=== PATIENT | male | born 1965 ===

== ENCOUNTER 2017-12-15 00:54 | Inpatient (IN) | payer OTHER ==
[2017-12-15] MEDS ORDERED: Midazolam 2 MG/2 ML VIAL IV STA (01:03)
[2017-12-15] MEDS ORDERED: Sodium Chloride 0.9% 1,000 ML IV SCH ×2 (01:15→02:30)
--- NOTE | 2017-12-15 01:15 | ED PDOC ---
HPI: Altered Mental Status Time Seen by Provider: 12/15/17 00:59 Chief Complaint (Nursing): Altered Mental Status Chief Complaint (Provider): Altered Mental Status History Per: EMS, Family () Current Symptoms Are (Timing): Still Present Description Of Symptoms: Unresponsive Additional Complaint(s): Preston Terrazas is a 52 year old male who was last known well at 1 PM today. Patient's neighbors reports that they heard him snoring at 4 PM today, and when his came home, which was just prior to patient's arrival in ED, she found him on the ground with vomitus all over himself. On transit, patient was actively vomiting, not protecting airway. Patient was intubated with no sedation by EMS, fingerstick within normal limits. No additional history available. Past Medical History Reviewed: Historical Data, Nursing Documentation, Vital Signs Vital Signs: Last Vital Signs Temp Pulse 96 H 12/15/17 00:59 Resp 13 12/15/17 00:59 BP 143/87 12/15/17 00:59 Pulse Ox 98 12/15/17 00:59 - Family History Family History: States: Unknown Family Hx - Home Medications Home Medications: Ambulatory Orders Medication Instructions Recorded Cyclobenzaprine HCl [Flexeril] 10 mg PO TID #10 tab 05/03/15 Naproxen [Naprosyn] 500 mg PO Q12H #20 tab 05/03/15 - Allergies Allergies/Adverse Reactions: Allergies Allergy/AdvReac Type Severity Reaction Status Date / Time No Known Allergies Allergy Verified 05/03/15 09:07 Review of Systems Review Of Systems: ROS cannot be obtained secondary to pt's inabilty to answer questions. Physical Exam - Reviewed Nursing Documentation Reviewed: Yes Vital Signs Reviewed: Yes - Physical Exam Appears: Negative for: No Acute Distress (Patient unresponsive) Head Exam: Positive for: ATRAUMATIC Skin: Positive for: Normal Color, Warm Eye Exam: Negative for: Normal appearance, EOMI, PERRL (Midpoint nonreactive pupils) ENT: Positive for: Other (ET tube in oral pharynx, (+) gag) Cardiovascular/Chest: Positive for: Regular Rate, Rhythm. Negative for: Murmur Respiratory: Positive for: Normal Breath Sounds (Equal breath sounds with bagging, coarse). Negative for: Respiratory Distress Gastrointestinal/Abdominal: Positive for: Normal Exam, Soft. Negative for: Tenderness Extremity: Negative for: Normal ROM (No spontaneous movement of extremities) Neurologic/Psych: Negative for: Alert, Oriented - Laboratory Results Result Diagrams: 12/15/17 01:11 12/15/17 01:11 - ECG O2 Sat by Pulse Oximetry: 98 (RA) Pulse Ox Interpretation: Normal - Critical Care Total Time (In Min): 30 Medical Decision Making Medical Decision Making: Impression: Unresponsive. Hypothermic and altered. GCS:3 Plan: Patient's chart reviewed for additional history. * CT C-Spine w/o contrast * CT Head w/o contrast * Chest X-Ray * EKG * Alcohol Serum * Acetaminophen * Lactic Acid * Lipase * Salicylate * Troponin I * CMP * CBC * PTT * PT * Type and Screen * ABG * VBG * Urinary Catheter * Urinalysis * Urine Drug Screen * Urine Culture * Blood Culture * NaCl 1000 mLs at 1000 mLs/hr * Midazolam 5 mg IV * Reevaluation Scribe Attestation: Documented by Мария Nolasco, acting as a scribe for Yoko Johns MD. Provider Scribe Attestation: All medical record entries made by the Scribe were at my direction and personally dictated by me. I have reviewed the chart and agree that the record accurately reflects my personal performance of the history, physical exam, medical decision making, and the department course for this patient. I have also personally directed, reviewed, and agree with the discharge instructions and disposition. 1:31AM Abg shows p02:58. PH:7.42. Fi02:100%, PEEP increased to maintain sat>88%. Lactate 7.8. Blood cultures and urine cultures already drawn. Antibiotics and fluid at 30cc/ kg bolus ordered although lactate likely elevated from prolonged downtime but sepsis considered due to likely aspiration pna. K 2.7. Replacement ordered. Cxray shows R mainstem intubation. ETT withdrawn 2 cm with repeat cxray showing improvement. CT Head w/o contrast FINDINGS: Large right subdural hematoma measuring up to 3.1 cm with extensive mass effect upon the right hemisphere and 2.8 cm shift to the left. There is mild hydrocephalus. Cisternal effacement noted Subarachnoid and intraventricular hemorrhages. 2x 1.8 cm corpus callosal hemorrhage Extensive edema in the right anterior cerebral artery territory and lateral right temporal lobe There is no calvarial fracture. Air fluid level in the left sphenoid sinus. Mild mucosal thickening observed. IMPRESSION: Large right subdural hematoma with 2.2 cm shift to the left and mild hydrocephalus Corpus callosal hemorrhage with interventricular extension. Edema in the right anterior cerebral artery territory and lateral right temporal lobe THIS REPORT CONTAINS FINDINGS THAT MAY BE CRITICAL TO PATIENT CARE. The findings were verbally communicated via telephone conference with Yoko Johns at 1: 58 AM EST on 12/15/2017. The findings were acknowledged and understood. CT C-Spine w/o contrast FINDINGS: Limited secondary to motion artifact. Vertebrae: No definite acute fracture. Discs/spinal canal/neural foramina: No acute findings. Central canal and foraminal stenosis most pronounced at C6-C7 Soft tissues: Nasopharyngeal airway and endotracheal tube noted Lung apices: Unremarkable as visualized. IMPRESSION: No definite acute cervical fracture detected Presumed left-sided hemothorax and upper lobe pulmonary contusions THIS REPORT CONTAINS FINDINGS THAT MAY BE CRITICAL TO PATIENT CARE. The findings were verbally communicated via telephone conference with Yoko Johns at 1: 59 AM EST on 12/15/2017. The findings were acknowledged and understood. 2:[address] Franklin, Hospitalist, who accepted patient to ICU. Spoke to NSx who believes with platelets of 60 and elevated inr, no surgical intervention indicated. Spoke to Neurology- Requesting Decadron, ffp and vitamin k Disposition - Clinical Impression Clinical Impression: Altered mental status, Intracranial hemorrhage, Hypokalemia - Disposition Disposition Time: 00:59 Condition: CRITICAL - Pt Status Changed To: Hospital Disposition Of: Inpatient - Admit Certification Admit to Inpatient:: After my assessment, the patient will require hospitalization for at least two midnights. This is because of the severity of symptoms shown, intensity of services needed, and/or the medical risk in this patient being treated as an outpatient. Critical Care Time - Critical Care Note Total Time (in mins): 30 Documented critical care: time excludes all time spent performing seperately billable procedures.
[2017-12-15 01:30] LABS: BASO % 0.1 % (0.0-2.0); HEMOGLOBIN 15.1 g/dL (12.0-18.0); LYMPH # 0.7 K/uL (1.0-4.3); LYMPH % 4.8 % (20.0-40.0); MEAN CELL VOLUME 100.7 fl (80.0-94.0); MEAN CORPUSCULAR HEMOGLOBIN 33.5 pg (27.0-31.0); MEAN CORPUSCULAR HGB CONC 33.2 g/dL (33.0-37.0); MEAN PLATELET VOLUME 9.6 fl (7.2-11.7); MONO # 0.9 K/uL (0.0-0.8); MONO % 6.3 % (0.0-10.0); NEUT # 12.2 K/uL (1.8-7.0); NEUT % 88.8 % (50.0-75.0); PLATELET COUNT 61 K/uL (130-400); RBC 4.52 Mil/uL (4.40-5.90); WHITE BLOOD COUNT 13.8 K/uL (4.8-10.8)
[2017-12-15] MEDS ORDERED: Sodium Chloride 0.9% 2,500 ML IV ONE (01:33)
[2017-12-15 01:38] LABS: SQUAMOUS EPITHIAL < 1 /hpf (0-5); URINE BILIRUBIN NEGATIVE (NEGATIVE); URINE BLOOD MODERATE (NEGATIVE); URINE CLARITY SLIGHTY-CLOUDY (Clear); URINE COLOR YELLOW (YELLOW); URINE GLUCOSE (UA) NEG (Normal); URINE HYALINE CAST 0-2 /hpf (0-2); URINE LEUKOCYTE ESTERASE NEG Leu/uL (Negative); URINE NITRATE NEGATIVE (NEGATIVE); URINE PROTEIN 30 mg/dL (NEGATIVE); URINE UROBILINOGEN 0.2-1.0 mg/dL (0.2-1.0)
[2017-12-15 01:39] LABS: ALB/GLOB RATIO 0.8 (1.0-2.1); ALBUMIN 4.4 g/dL (3.5-5.0); ALT/SGPT 55 U/L (21-72); AST/SGOT 170 U/L (17-59); BLOOD UREA NITROGEN 6 mg/dl (9-20); CALCIUM 9.6 mg/dL (8.4-10.2); GFR AFRICAN-AMERICAN > 60; GFR NON-AFRICAN AMERICAN > 60; INR 1.4 (0.9-1.2); LIPASE 141 U/L (23-300); PARTIAL THROMBOPLASTIN TIME 31.7 Seconds (25.6-37.1)
[2017-12-15 01:40] LABS: ACETAMINOPHEN < 10.0 ug/ml (10.0-30.0); SALICYLATE < 1.0 mg/dl
[2017-12-15] MEDS ORDERED: Midazolam 2 MG/2 ML VIAL ONE (01:40)
[2017-12-15] MEDS ORDERED: Piperacillin/Tazobact 3.375 GM in Sodium Chloride 0.9% 100 ML IVPB STA (01:44)
[2017-12-15 01:48] LABS: BARBITURATES, UR NEGATIVE (NEGATIVE); BENZODIAZEPINES, UR NEGATIVE (NEGATIVE); OPIATES, UR NEGATIVE (NEGATIVE); PHENCYCLIDINE, UR NEGATIVE (NEGATIVE)
--- NOTE | 2017-12-15 02:02 | ED PDOC ---
Arrival/HPI - General Chief Complaint: Altered Mental Status Time Seen by Provider: 12/15/17 00:59 Past Medical History - Psychiatric Hx Substance Use: No - Surgical History Other/Comment: Right foot surgery - Anesthesia Hx Anesthesia: Yes Hx Anesthesia Reactions: No Hx Malignant Hyperthermia: No Family/Social History Smoking Status: Unknown If Ever Smoked Hx Alcohol Use: Yes Hx Substance Use: No Allergies/Home Meds Allergies/Adverse Reactions: Allergies No Known Allergies Allergy (Verified 05/03/15 09:07) Physical Exam Vital Signs Pulse Resp BP Pulse Ox 12/15/17 01:36 98 12/15/17 00:59 96 H 13 143/87 98 Medical Decision Making - Lab Interpretations Lab Results: 12/15/17 01:11 12/15/17 01:11 Lab Results 12/15/17 01:18: Urine Color Yellow, Urine Clarity Slighty-cloudy, Urine pH 6.0, Ur Specific [place] 1.006, Urine Protein 30, Urine Glucose (UA) Neg, Urine Ketones Trace, Urine Blood Moderate, Urine Nitrate Negative, Urine Bilirubin Negative, Urine Urobilinogen 0.2-1.0, Ur Leukocyte Esterase Neg, Urine RBC (Auto ) 2, Urine Microscopic WBC 2, Ur Squamous Epith Cells < 1, Hyaline Casts 0-2 12/15/17 01:18: Urine Opiates Screen Negative, Urine Methadone Screen Negative, Ur Barbiturates Screen Negative, Ur Phencyclidine Scrn Negative, Ur Amphetamines Screen Negative, U Benzodiazepines Scrn Negative, U Oth Cocaine Metabols Negative, U Cannabinoids Screen Negative 12/15/17 01:11: Salicylates < 1.0, Acetaminophen < 10.0 L 12/15/17 01:11: PT 16.0 H, INR 1.4 H, APTT 31.7 12/15/17 01:11: Lactic Acid 7.8 H* 12/15/17 01:11: WBC 13.8 H, RBC 4.52, Hgb 15.1, Hct 45.5, MCV 100.7 H D, MCH 33.5 H, MCHC 33.2, RDW 15.0 H, Plt Count 61 L D, MPV 9.6, Neut % (Auto) 88.8 H, Lymph % (Auto) 4.8 L, [place] % (Auto) 6.3, Eos % (Auto) 0.0, Baso % (Auto) 0.1, Neut # (Auto) 12.2 H, Lymph # (Auto) 0.7 L, [place] # (Auto) 0.9 H, Eos # (Auto) 0.0, Baso # (Auto) 0.0, Neutrophils % (Manual) Pending, Lymphocytes % (Manual) Pending, Monocytes % (Manual) Pending, Platelet Estimate Pending 12/15/17 01:11: Sodium 149 H, Potassium 2.6 L, Chloride 106, Carbon Dioxide 22, Anion Gap 24 H, BUN 6 L, Creatinine 0.7 L, Est GFR ( Amer) > 60, Est GFR (Non-Af Amer) > 60, Random Glucose 229 H, Calcium 9.6, Total Bilirubin 2.6 H, AST 170 H, ALT 55, Alkaline Phosphatase 142 H, Troponin I Pending, Total Protein 9.8 H, Albumin 4.4, Globulin 5.4 H, Albumin/Globulin Ratio 0.8 L, Lipase 141, Alcohol, Quantitative < 10 - RAD Interpretation Radiology Orders: 12/15/17 01:00 CERVICAL SPINE W/O CONTRAST [CT] Stat HEAD W/O CONTRAST [CT] Stat CHEST ONE VIEW [RAD] Stat - Medication Orders Current Medication Orders: Sodium Chloride (Sodium Chloride 0.9%) 1,000 mls @ 1,000 mls/hr IV .Q1H PANFILO Potassium Chloride (Potassium Cl 10meq/50ml Sterile Water) 50 mls @ 50 mls/hr IVPB Q1 PANFILO Stop: 12/15/17 04:59 Sodium Chloride (Sodium Chloride 0.9%) 2,500 mls @ 5,000 mls/hr IV ONCE ONE Stop: 12/15/17 02:02 Vancomycin HCl 1 gm/ Sodium (Chloride) 250 mls @ 166.667 mls/hr IVPB STAT STA PRN Reason: Protocol Stop: 12/15/17 03:14 Piperacillin Sod/Tazobactam (Sod 3.375 gm/ Sodium Chloride) 100 mls @ 100 mls/ hr IVPB STAT STA PRN Reason: Protocol Stop: 12/15/17 02:43 Discontinued Medications Midazolam HCl (Versed Inj) 5 mg IV STAT STA Stop: 12/15/17 01:04 Disposition/Present on Arrival - Disposition Forms: [employer] ([place])
[2017-12-15] MEDS ORDERED: Potassium CL 10 MEQ/50 ML 50 ML ONE ×2 (02:37→04:03)
[2017-12-15] MEDS: Potassium CL 10 MEQ/50 ML 50 ML IVPB SCH ×3 (02:38→05:51)
[2017-12-15] MEDS ORDERED: Phytonadione 10 mg/ml Inj (Adult) IV STA (02:42)
[2017-12-15] MEDS ORDERED: Dexamethasone 4 MG in Dextrose 5% In Water 50 ML IV STA (02:42)
[2017-12-15] MEDS ORDERED: Nicardipine 20 MG/200 ML 20 MG/200 ML BAG IV ONE (03:00)
[2017-12-15 03:01] LABS: BANDS 7 % (0-2); EOSINOPHIL 1 % (0-7); LYMPHOCYTE 4 % (20-50); METAMYELOCYTE 1 % (0-0); MONOCYTE 6 % (0-10); NEUTROPHIL 81 % (42-75); TOTAL CELLS COUNTED 100
[2017-12-15] MEDS ORDERED: Phytonadione 10 mg/ml Inj (Adult) ONE (03:01)
[2017-12-15 03:02] LABS: PLATELET ESTIMATE DECREASED (NORMAL)
[2017-12-15 03:05] LABS: ANISOCYTOSIS SLIGHT; ROULEAUX FORMATION SLIGHT
--- NOTE | 2017-12-15 03:09 | CP.PCM.CON ---
History of Present Illness - History of Present Illness History of Present Illness: This is a 52 yo male with a past medical history of back pain who presents to the ED after being found unresponsive. History taken from the chart. The patient was last seen well at 1 pm on 12/14/2017. Neighbors report hearing loud snoring at 4 pm. His found him on the ground unresponsive with vomitus all over himself just before arrival in the ED. EMS was called- reports that the patient was actively vomiting nb/nb emesis during transit, not protecting airway. Therefore patient was intubated without sedation. In the ED, CT scan of the brain and cervical spine was performed revealing a large right subdural hematoma with 2.2 cm shift to the left and mild hydrocephalus. Corpus callosal hemorrhage with interventricular extension. There is edema in the right anterior cerebral artery territory and lateral right temporal lobe. CT scan of cervical spine shows no acute vertebral fracture. The report mentions possible left sided hemothorax and upper lobe pulmonary contusion; however there is no definite evidence of this on CXR. CXR does show evidence of pneumonia; likely aspiration of his vomitus. The prognosis is very poor. The ED physician contacted the daughter; abigail is aware of poor prognosis. The patient is to be admitted to ICU for further stabilization and monitoring. Neurosurgery was called and stated nothing to be done from their standpoint- given the unfortunate severity of the bleed. Review of Systems - Review of Systems Systems not reviewed;Unavailable: Intubated Past Patient History - Past Medical History & Family History Past Medical History?: No Past Family History: Reviewed and not pertinent - Past Social History Smoking Status: Unknown If Ever Smoked - PSYCHIATRIC Hx Substance Use: No - SURGICAL HISTORY Other/Comment: Right foot surgery - ANESTHESIA Hx Anesthesia: Yes Hx Anesthesia Reactions: No Hx Malignant Hyperthermia: No Meds Allergies/Adverse Reactions: Allergies Allergy/AdvReac Type Severity Reaction Status Date / Time No Known Allergies Allergy Verified 05/03/15 09:07 - Medications Medications: Current Medications Sodium Chloride (Sodium Chloride 0.9%) 1,000 mls @ 1,000 mls/hr IV .Q1H PANFILO Last Admin: 12/15/17 02:25 Dose: 1,000 mls/hr Potassium Chloride (Potassium Cl 10meq/50ml Sterile Water) 50 mls @ 50 mls/hr IVPB Q1 [facility] Stop: 12/15/17 04:59 Last Admin: 12/15/17 02:38 Dose: 50 mls/hr Vancomycin HCl 1 gm/ Sodium (Chloride) 250 mls @ 166.667 mls/hr IVPB STAT STA PRN Reason: Protocol Stop: 12/15/17 03:14 Sodium Chloride (Sodium Chloride 0.9%) 1,000 mls @ 75 mls/hr IV .[id number] PANFILO Vancomycin HCl 1 gm/ Sodium (Chloride) 250 mls @ 250 mls/hr IVPB Q12H PANFILO PRN Reason: Protocol Piperacillin Sod/Tazobactam (Sod 3.375 gm/ Sodium Chloride) 100 mls @ 100 mls/ hr IVPB Q6 PANFILO PRN Reason: Protocol Dexamethasone 4 mg/ Dextrose 50.4 mls @ 100 mls/hr IV STAT STA Stop: 12/15/17 03:12 Nicardipine HCl (Cardene Iv Premix) 20 mg in 200 mls @ 50 mls/hr IV .Q4H ONE; 5 MG/HR PRN Reason: Protocol Stop: 12/15/17 06:59 Morphine Sulfate (Morphine) 2 mg IVP Q4H PRN PRN Reason: Pain, severe (8-10) Ondansetron HCl (Zofran Inj) 4 mg IVP Q6H PRN PRN Reason: Nausea/Vomiting Pantoprazole Sodium (Protonix Inj) 40 mg IVP DAILY [facility] Physical Exam - Additional Findings Additional findings: Physical exam: Constitutional- unresponsive on ventilator without sedation, no response to verbal or tactile stimuli Head- NCAT, PERRL Eye- PERRL ENT- normal exam, intubated Neck- normal inspection, supple, no JVD Respiratory- Scattered rhonchi bilaterally, no wheezing, no rales Cardiovascular- RRR, +S1, +S2 no MRG GI/Abdominal- normal bowel sounds, soft, no mass, no hsm Skin- warm, dry Extremities Exam- normal capillary refill, normal inspection Neurological Exam- unable to be performed Psych- unable to be performed Results - Vital Signs Recent Vital Signs: Last Vital Signs Temp Pulse 96 H 12/15/17 00:59 Resp 13 12/15/17 00:59 BP 143/87 12/15/17 00:59 Pulse Ox 98 12/15/17 02:44 - Labs Result Diagrams: 12/15/17 01:11 12/15/17 01:11 Labs: Laboratory Results - last 24 hr 12/15/17 12/15/17 12/15/17 01:11 01:11 01:11 WBC 13.8 H RBC 4.52 Hgb 15.1 Hct 45.5 MCV 100.7 H D MCH 33.5 H MCHC 33.2 RDW 15.0 H Plt Count 61 L D MPV 9.6 Neut % (Auto) 88.8 H Lymph % (Auto) 4.8 L [place] % (Auto) 6.3 Eos % (Auto) 0.0 Baso % (Auto) 0.1 Neut # (Auto) 12.2 H Lymph # (Auto) 0.7 L [place] # (Auto) 0.9 H Eos # (Auto) 0.0 Baso # (Auto) 0.0 PT INR APTT Sodium 149 H Potassium 2.6 L Chloride 106 Carbon Dioxide 22 Anion Gap 24 H BUN 6 L Creatinine 0.7 L Est GFR ( Amer) > 60 Est GFR (Non-Af Amer) > 60 Random Glucose 229 H Lactic Acid 7.8 H* Calcium 9.6 Total Bilirubin 2.6 H AST 170 H ALT 55 Alkaline Phosphatase 142 H Troponin I 0.2920 H* Total Protein 9.8 H Albumin 4.4 Globulin 5.4 H Albumin/Globulin Ratio 0.8 L Lipase 141 Urine Color Urine Clarity Urine pH Ur Specific [place] Urine Protein Urine Glucose (UA) Urine Ketones Urine Blood Urine Nitrate Urine Bilirubin Urine Urobilinogen Ur Leukocyte Esterase Urine RBC (Auto) Urine Microscopic WBC Ur Squamous Epith Cells Hyaline Casts Salicylates Urine Opiates Screen Urine Methadone Screen Acetaminophen Ur Barbiturates Screen Ur Phencyclidine Scrn Ur Amphetamines Screen U Benzodiazepines Scrn U Oth Cocaine Metabols U Cannabinoids Screen Alcohol, Quantitative < 10 Blood Type Antibody Screen BBK History Checked 12/15/17 12/15/17 12/15/17 01:11 01:11 01:11 WBC RBC Hgb Hct MCV MCH MCHC RDW Plt Count MPV Neut % (Auto) Lymph % (Auto) [place] % (Auto) Eos % (Auto) Baso % (Auto) Neut # (Auto) Lymph # (Auto) [place] # (Auto) Eos # (Auto) Baso # (Auto) PT 16.0 H INR 1.4 H APTT 31.7 Sodium Potassium Chloride Carbon Dioxide Anion Gap BUN Creatinine Est GFR ( Amer) Est GFR (Non-Af Amer) Random Glucose Lactic Acid Calcium Total Bilirubin AST ALT Alkaline Phosphatase Troponin I Total Protein Albumin Globulin Albumin/Globulin Ratio Lipase Urine Color Urine Clarity Urine pH Ur Specific [place] Urine Protein Urine Glucose (UA) Urine Ketones Urine Blood Urine Nitrate Urine Bilirubin Urine Urobilinogen Ur Leukocyte Esterase Urine RBC (Auto) Urine Microscopic WBC Ur Squamous Epith Cells Hyaline Casts Salicylates < 1.0 Urine Opiates Screen Urine Methadone Screen Acetaminophen < 10.0 L Ur Barbiturates Screen Ur Phencyclidine Scrn Ur Amphetamines Screen U Benzodiazepines Scrn U Oth Cocaine Metabols U Cannabinoids Screen Alcohol, Quantitative Blood Type O POSITIVE Antibody Screen Negative BBK History Checked No verified bt 12/15/17 12/15/17 01:18 01:18 WBC RBC Hgb Hct MCV MCH MCHC RDW Plt Count MPV Neut % (Auto) Lymph % (Auto) [place] % (Auto) Eos % (Auto) Baso % (Auto) Neut # (Auto) Lymph # (Auto) [place] # (Auto) Eos # (Auto) Baso # (Auto) PT INR APTT Sodium Potassium Chloride Carbon Dioxide Anion Gap BUN Creatinine Est GFR ( Amer) Est GFR (Non-Af Amer) Random Glucose Lactic Acid Calcium Total Bilirubin AST ALT Alkaline Phosphatase Troponin I Total Protein Albumin Globulin Albumin/Globulin Ratio Lipase Urine Color Yellow Urine Clarity Slighty-cloudy Urine pH 6.0 Ur Specific [place] 1.006 Urine Protein 30 Urine Glucose (UA) Neg Urine Ketones Trace Urine Blood Moderate Urine Nitrate Negative Urine Bilirubin Negative Urine Urobilinogen 0.2-1.0 Ur Leukocyte Esterase Neg Urine RBC (Auto) 2 Urine Microscopic WBC 2 Ur Squamous Epith Cells < 1 Hyaline Casts 0-2 Salicylates Urine Opiates Screen Negative Urine Methadone Screen Negative Acetaminophen Ur Barbiturates Screen Negative Ur Phencyclidine Scrn Negative Ur Amphetamines Screen Negative U Benzodiazepines Scrn Negative U Oth Cocaine Metabols Negative U Cannabinoids Screen Negative Alcohol, Quantitative Blood Type Antibody Screen BBK History Checked Assessment & Plan - Assessment and Plan (Free Text) Plan: ASSESSMENT 1) Large right subdural hematoma with 2.2 cm shift to the left, along with large corpus callosal hemorrhage with interventricular extension. Cause unclear ; may be due to head trauma from fall versus large aneurysmal bleed 2) Aspiration pneumonia / pneumonitis 3) r/o sepsis with lactic acidosis and hypothermia- although this may be due to prolonged time being down rather than true sepsis 4) Hypernatremia from dehydration 5) Hypokalemia 6) Hyperglycemia, r/o DM 7) Elevated troponin due to stress demand ischemia from bleed and aspiration; unlikely ACS 8) Leukocytosis, reactive 9) Elevated bilirubin and transaminitis- from shock liver versus cirrhosis- ETOH use seen on past ED visits PLAN - Admit to ICU - Consultation with Dr. Rush, neurology, and Dr. Zaragoza, neurosurgery- no neurosurgical intervention at this time - Vancomycin and Zosyn for empiric coverage of aspiration pneumonia - Dexamethasone given in ED, continue IV steroids in ICU for pneumonitis - NS bolus given in ED, continue NS at 75 cc/hour - 2 units FFP and Vitamin K given (INR 1.4 on admission) - Cardene drip ordered PRN to maintain MAP 100-110 and SBP no more than 140 - NPO status - IV potassium repletion - GI prophylaxis: Protonix IV - DVT prophylaxis: SCDs - Prognosis is poor
[2017-12-15] MEDS ORDERED: Dexamethasone 4 mg/1 ml ONE (04:03)
[2017-12-15 05:34] LABS: ABG ALLEN TEST YES; ARTERIAL BLOOD GAS HCO3 29.4 mmol/L (21-28); ARTERIAL BLOOD GAS O2 CAPACITY 22.5 mL/dL (16-24); ARTERIAL BLOOD GAS O2 CONTENT 22.6 ML/dL (15-23); ARTERIAL BLOOD GAS O2 SAT 100.6 % (95-98); ARTERIAL BLOOD GAS PCO2 40 mm/Hg (35-45); ARTERIAL BLOOD GAS PH 7.48 (7.35-7.45); ARTERIAL BLOOD GAS PO2 292 mm/Hg (80-100)
--- NOTE | 2017-12-15 09:02 | CP.PCM.PN ---
Subjective - Date & Time of Evaluation Date of Evaluation: 12/15/17 Time of Evaluation: 08:59 - Subjective Subjective: full consult dictated approx 2AM last night not yet on chart Massive SDH Unconscious 61K plts and elevated INR could not do surgery 2 to low plts and elevated INR and unlikely ability to keep it normalized Prognosis grim No surgical intervention indicated at this time Objective - Vital Signs/Intake and Output Vital Signs (last 24 hours): Temp Pulse Resp BP Pulse Ox 97.9 F 66 18 145/75 100 12/15/17 08:00 12/15/17 08:00 12/15/17 08:00 12/15/17 08:00 12/15/17 08:00 - Medications Medications: Current Medications Sodium Chloride (Sodium Chloride 0.9%) 1,000 mls @ 1,000 mls/hr IV .Q1H [facility] Last Admin: 12/15/17 02:25 Dose: 1,000 mls/hr Sodium Chloride (Sodium Chloride 0.9%) 1,000 mls @ 75 mls/hr IV .[id number] [facility] Last Admin: 12/15/17 05:34 Dose: 75 mls/hr Vancomycin HCl 1 gm/ Sodium (Chloride) 250 mls @ 250 mls/hr IVPB Q12H PANFILO PRN Reason: Protocol Piperacillin Sod/Tazobactam (Sod 3.375 gm/ Sodium Chloride) 100 mls @ 100 mls/ hr IVPB Q6 PANFILO PRN Reason: Protocol Morphine Sulfate (Morphine) 2 mg IVP Q4H PRN PRN Reason: Pain, severe (8-10) Ondansetron HCl (Zofran Inj) 4 mg IVP Q6H PRN PRN Reason: Nausea/Vomiting Pantoprazole Sodium (Protonix Inj) 40 mg IVP DAILY PANFILO - Labs Labs: 12/15/17 01:11 12/15/17 01:11 PT 16.0 Seconds (9.8-13.1) H 12/15/17 01:11 INR 1.4 (0.9-1.2) H 12/15/17 01:11 APTT 31.7 Seconds (25.6-37.1) 12/15/17 01:11
--- NOTE | 2017-12-15 09:02 | CT ---
PROCEDURE: CT HEAD WITHOUT CONTRAST. HISTORY: head injury COMPARISON: None available. TECHNIQUE: Axial computed tomography images were obtained through the head/brain without intravenous contrast. Radiation dose: Total exam DLP = 1160 mGy-cm. This CT exam was performed using one or more of the following dose reduction techniques: Automated exposure control, adjustment of the mA and/or kV according to patient size, and/or use of iterative reconstruction technique. FINDINGS: HEMORRHAGE: A large right subdural hematoma - width approximately 3 cm, with a right cerebral hemispheric mass effect and approximately a 2.8 cm leftward midline shift Inferred sulcal and cisternal effacements. Subarachnoid and intraventricular hemorrhage. A left paracentral posterior corpus callosal hematoma approximately 2.0 x 1.8 cm. BRAIN: Right cerebral hemispheric mass effect -as above. Inferiorly right anterior frontal lobe/anterior cerebral artery territory and inferior lateral right temporal lobe extensive edema. VENTRICLES: Mild hydrocephalus CALVARIUM: No calvarial fracture seen PARANASAL SINUSES: Maxillary sinus mucosal thickening/ retention cyst. Bilateral patchy ethmoidal mucosal thickening and opacification and left sphenoid air cell air-fluid level. MASTOID AIR CELLS: Unremarkable as visualized. No inflammatory changes. OTHER FINDINGS: None. IMPRESSION: Large right subdural acute appearing hematoma with right cerebral hemispheric mass effect, or right cerebral edema, and marked leftward midline shift. Mild hydrocephalus. Subarachnoid and intraventricular blood. Posterior left corpus callosal hematoma Paranasal sinus inflammatory changes Comments: Preliminary report per Vrad compatible with this report.
[2017-12-15 09:34] LABS: HEMOGLOBIN 14.2 g/dL (12.0-18.0); LYMPH # 0.4 K/uL (1.0-4.3); LYMPH % 2.9 % (20.0-40.0); MEAN CELL VOLUME 99.9 fl (80.0-94.0); MEAN CORPUSCULAR HEMOGLOBIN 33.3 pg (27.0-31.0); MEAN CORPUSCULAR HGB CONC 33.3 g/dL (33.0-37.0); MEAN PLATELET VOLUME 9.8 fl (7.2-11.7); MONO # 0.9 K/uL (0.0-0.8); MONO % 6.3 % (0.0-10.0); NEUT % 90.8 % (50.0-75.0); NRBC % 0.1 % (0.0-0.0); RBC 4.27 Mil/uL (4.40-5.90); RED CELL DISTRIBUTION WIDTH 14.8 % (11.5-14.5); WHITE BLOOD COUNT 14.3 K/uL (4.8-10.8)
[2017-12-15] MEDS ORDERED: Phytonadione 1 mg/0.5 ml Inj (Neonatal) IM ONE (09:49)
--- NOTE | 2017-12-15 10:00 | RAD ---
PROCEDURE: CHEST RADIOGRAPH, 1 VIEW HISTORY: altered COMPARISON: None available. FINDINGS: LUNGS: Bilateral patchy airspace opacities present. Left hemidiaphragm -ill-defined. PLEURA: No pneumothorax. Small left pleural effusion probable CARDIOVASCULAR: Mild cardiomegaly OSSEOUS STRUCTURES: All shoulder arthrosis. Thoracic spondylosis. VISUALIZED UPPER ABDOMEN: Normal. OTHER FINDINGS: Endotracheal tube tip in right mainstem bronchus recommend retraction. A 2nd film after some retraction was performed. The tip still is at the bifurcation pointing towards the right mainstem orifice. Further retraction, 1 to 2 cm still recommended. IMPRESSION: Endotracheal tube tip in the right mainstem bronchus. A 2nd film after some retraction was performed. The tip still is at the bifurcation pointing towards the right mainstem orifice. Further retraction, 1 to 2 cm still recommended. These findings were called up to the floor on 12/15/2017 at 9:55 a.m. and given to nurse, Sudha Stearns.
[2017-12-15 10:11] LABS: ALB/GLOB RATIO 0.8 (1.0-2.1); ALBUMIN 3.2 g/dL (3.5-5.0); ALT/SGPT 64 U/L (21-72); AST/SGOT 145 U/L (17-59); BLOOD UREA NITROGEN 5 mg/dl (9-20); GFR AFRICAN-AMERICAN > 60; GFR NON-AFRICAN AMERICAN > 60; MAGNESIUM 2.1 MG/DL (1.6-2.3)
[2017-12-15] MEDS ORDERED: Phytonadione 10 mg/ml Inj (Adult) IVPB ONE (10:13)
[2017-12-15] MEDS ORDERED: Mannitol 12.5 gm/50 ml Inj IV ONE (10:14)
[2017-12-15] MEDS ORDERED: Phytonadione 10 MG in Sodium Chloride 0.9% 50 ML IV ONE (10:45)
[2017-12-15] MEDS ORDERED: Phytonadione 20 MG in Dextrose 5% In Water 50 ML IV ONE (11:00)
--- NOTE | 2017-12-15 11:17 | CARD ---
APPROVED REPORT EKG Measurement Heart [id number] <Conclusion> Sinus rhythm with marked sinus arrhythmia Minimal voltage criteria for LVH, may be normal variant Prolonged QT Abnormal ECG
--- NOTE | 2017-12-15 11:18 | CARD ---
APPROVED REPORT EKG Measurement Heart [id number] <Conclusion> Normal sinus rhythm Nonspecific ST and T wave abnormality Abnormal ECG
[2017-12-15] MEDS: Piperacillin/Tazobact 3.375 GM in Sodium Chloride 0.9% 100 ML IVPB SCH ×3 (11:23→21:43)
--- NOTE | 2017-12-15 11:23 | CT ---
PROCEDURE: CT Cervical Spine without contrast HISTORY: <altered, fall> COMPARISON: None available. TECHNIQUE: Axial computed tomography images were obtained of the cervical spine without the use of intravenous contrast. Coronal and sagittal reformatted images were created and reviewed. Radiation dose: Total exam DLP = 566.04 mGy-cm. This CT exam was performed using one or more of the following dose reduction techniques: Automated exposure control, adjustment of the mA and/or kV according to patient size, and/or use of iterative reconstruction technique. FINDINGS: VERTEBRAE: No fracture. Normal alignment. No destructive bony lesion. DISCS/SPINAL CANAL/NEURAL FORAMINA: There are multilevel disc and endplate changes. There is a moderate size posterior osteophyte disc bulge complex noted at C6-C7 associated with spinal and neural foraminal narrowing. Straightening of the cervical spine is also noted likely due to muscle spasm. PARASPINAL SOFT TISSUES: There is opacification and airspace density broken at the visualized portion of the left lung apex. Possible of hemothorax on the left chest. . ET tube and NG tube are seen in place. The assessment for prevertebral soft tissue swelling is limited due to the presence of ET tube and NG tube. OTHER FINDINGS: None. IMPRESSION: No definite CT evidence of acute displaced fracture or acute subluxation. Moderate degenerative changes. Presumed left-sided hemothorax and upper lobe pulmonary contusion or consolidation. Preliminary report was submitted by virtual Radiology.
[2017-12-15] MEDS ORDERED: Dexamethasone 10 MG in Sodium Chloride 0.9% 50 ML IVPB SCH (12:00)
[2017-12-15] MEDS ORDERED: Desmopressin 4 mcg/ml Inj (1 ml) IVP STA (12:29)
--- NOTE | 2017-12-15 12:51 | CON ---
DATE: 12/15/2017 TIME: 02:00 a.m. HISTORY OF PRESENT ILLNESS: Call from the ER physician. Mr. Terrazas is a 52-year-old gentleman, last seen yesterday at 01:00 p.m., neighbor saw him, heard him snoring approximately at 4:00 p.m. His came home and found him unresponsive in his own vomitus. He was intubated with no station. He arrived in the Emergency Room unresponsive. He had spontaneous respirations. His pupils were in mid position and fixed. He a had gag reflex. A CT of the head was done, demonstrating a massive right acute subdural hematoma with several centimeters of shift. His laboratory values showed an INR of 1.4 and platelets of 62,000. Based upon his clinical condition and his abnormal coagulation profile, operating to remove the subdural hematoma is out of the question. We would not be able to control his bleeding while doing surgery. On an average, it takes 4 hours to get platelets and it was 62,000. Given the history of alcohol use, it would be impossible to get him to a reasonable coagulation profile and to maintain it during any reasonable time period. Given his condition, his overall prognosis is extremely poor. I suggest conservative management and discussing do not resuscitate with the family. Again, because of his hematologic profile, surgery is out of question. Javi Zaragoza MD
--- NOTE | 2017-12-15 13:20 | CP.PCM.CON ---
History of Present Illness - History of Present Illness History of Present Illness: 52 yr old male who was found unresponsive, etiology unknown. It is thought it could have been secondary to trauma. History is obtained from the chart and is as follows: The patient was last seen well at 1 pm on 12/14/17, and his girlfriend found him last night on the ground, wtih vomitus. EMS reported that the patient w actively vomiting durign transit, and was intubated without sedation. I was called immediately after CT scan was done, and he was obtunded, with platelets of 61, INR of 1.6, and a CT scan head that shows large right subdural hematoma with 2.2cm shift to the left with hydrocephalus. There is corpus callosal hemorrhage with interventricular extension, and edema with RACA , and lateral right temporal lobe. CT scan does not show any vertebral fracture. The report mentions possible left sided hemothorax and upper lobe pulmonary contusion; however there is no definite evidence of this on CXR. CXR does show evidence of pneumonia; likely aspiration of his vomitus. I was called at 230 am, and was called as well. I ordered 2 units of FFPs, and Vitamin K to be given immediately as well as repeat CT head in the am. felt that, given the patient's thrombocytopenia and INR, he would not be a good candidate for craniectomy. Patient was transferred to the ICU, and his pupils became progressively larger, and less reactive. He was started on mannitol, hyperventilated, and repeat CT head was just performed. Prognosis is poor. Patient's girlfriend was called and clinical condition was explained. On exam: obtunded, intubated and not sedated. Pupils: 4mm very sluggishly reacting to light, /fixed. no corneals noted. +gag reflex strong, No dolls eyes noted. Grimacing to painful stimuli, +3 dtr ul and ll bl. Toes upgoing bl. No focal twitching noted. Past Patient History - Past Medical History & Family History Past Medical History?: No - Past Social History Smoking Status: Unknown If Ever Smoked - PSYCHIATRIC Hx Substance Use: No Other/Comment: history of alcohol abuse - SURGICAL HISTORY Other/Comment: Right foot surgery - ANESTHESIA Hx Anesthesia: Yes Hx Anesthesia Reactions: No Hx Malignant Hyperthermia: No Meds Allergies/Adverse Reactions: Allergies Allergy/AdvReac Type Severity Reaction Status Date / Time No Known Allergies Allergy Verified 05/03/15 09:07 - Medications Medications: Current Medications Sodium Chloride (Sodium Chloride 0.9%) 1,000 mls @ 1,000 mls/hr IV .Q1H [facility] Last Admin: 12/15/17 02:25 Dose: 1,000 mls/hr Sodium Chloride (Sodium Chloride 0.9%) 1,000 mls @ 75 mls/hr IV .[id number] [facility] Last Admin: 12/15/17 05:34 Dose: 75 mls/hr Vancomycin HCl 1 gm/ Sodium (Chloride) 250 mls @ 250 mls/hr IVPB Q12H [facility] PRN Reason: Protocol Piperacillin Sod/Tazobactam (Sod 3.375 gm/ Sodium Chloride) 100 mls @ 100 mls/ hr IVPB Q6 [facility] PRN Reason: Protocol Morphine Sulfate (Morphine) 2 mg IVP Q4H PRN PRN Reason: Pain, severe (8-10) Ondansetron HCl (Zofran Inj) 4 mg IVP Q6H PRN PRN Reason: Nausea/Vomiting Pantoprazole Sodium (Protonix Inj) 40 mg IVP DAILY [facility] Results - Vital Signs Recent Vital Signs: Last Vital Signs Temp 97.9 F 12/15/17 08:00 Pulse 66 12/15/17 08:00 Resp 18 12/15/17 08:00 BP 145/75 12/15/17 08:00 Pulse Ox 100 12/15/17 08:00 - Labs Result Diagrams: 12/15/17 09:20 12/15/17 09:20 Labs: Laboratory Results - last 24 hr 12/15/17 12/15/17 12/15/17 01:11 01:11 01:11 WBC 13.8 H RBC 4.52 Hgb 15.1 Hct 45.5 MCV 100.7 H D MCH 33.5 H MCHC 33.2 RDW 15.0 H Plt Count 61 L D MPV 9.6 Neut % (Auto) 88.8 H Lymph % (Auto) 4.8 L [place] % (Auto) 6.3 Eos % (Auto) 0.0 Baso % (Auto) 0.1 Neut # (Auto) 12.2 H Lymph # (Auto) 0.7 L [place] # (Auto) 0.9 H Eos # (Auto) 0.0 Baso # (Auto) 0.0 Neutrophils % (Manual) 81 H Band Neutrophils % 7 H Lymphocytes % (Manual) 4 L Monocytes % (Manual) 6 Eosinophils % (Manual) 1 Metamyelocytes % 1 H Platelet Estimate Decreased L Anisocytosis (manual) Slight Macrocytosis (manual) Slight Rouleaux Slight PT INR APTT pCO2 pO2 HCO3 ABG pH ABG Total CO2 ABG O2 Saturation ABG O2 Content ABG Base Excess ABG Hemoglobin ABG Carboxyhemoglobin POC ABG HHb (Measured) ABG Methemoglobin ABG O2 Capacity Meño Test A-a O2 Difference Hgb O2 Saturation Vent Mode Mechanical Rate FiO2 Tidal Volume PEEP Sodium 149 H Potassium 2.6 L Chloride 106 Carbon Dioxide 22 Anion Gap 24 H BUN 6 L Creatinine 0.7 L Est GFR ( Amer) > 60 Est GFR (Non-Af Amer) > 60 Random Glucose 229 H Lactic Acid 7.8 H* Calcium 9.6 Total Bilirubin 2.6 H AST 170 H ALT 55 Alkaline Phosphatase 142 H Troponin I 0.2920 H* Total Protein 9.8 H Albumin 4.4 Globulin 5.4 H Albumin/Globulin Ratio 0.8 L Lipase 141 Urine Color Urine Clarity Urine pH Ur Specific Bronte Urine Protein Urine Glucose (UA) Urine Ketones Urine Blood Urine Nitrate Urine Bilirubin Urine Urobilinogen Ur Leukocyte Esterase Urine RBC (Auto) Urine Microscopic WBC Ur Squamous Epith Cells Hyaline Casts Salicylates Urine Opiates Screen Urine Methadone Screen Acetaminophen Ur Barbiturates Screen Ur Phencyclidine Scrn Ur Amphetamines Screen U Benzodiazepines Scrn U Oth Cocaine Metabols U Cannabinoids Screen Alcohol, Quantitative < 10 Blood Type Blood Type Confirm Antibody Screen BBK History Checked 12/15/17 12/15/17 12/15/17 01:11 01:11 01:11 WBC RBC Hgb Hct MCV MCH MCHC RDW Plt Count MPV Neut % (Auto) Lymph % (Auto) [place] % (Auto) Eos % (Auto) Baso % (Auto) Neut # (Auto) Lymph # (Auto) [place] # (Auto) Eos # (Auto) Baso # (Auto) Neutrophils % (Manual) Band Neutrophils % Lymphocytes % (Manual) Monocytes % (Manual) Eosinophils % (Manual) Metamyelocytes % Platelet Estimate Anisocytosis (manual) Macrocytosis (manual) Rouleaux PT 16.0 H INR 1.4 H APTT 31.7 pCO2 pO2 HCO3 ABG pH ABG Total CO2 ABG O2 Saturation ABG O2 Content ABG Base Excess ABG Hemoglobin ABG Carboxyhemoglobin POC ABG HHb (Measured) ABG Methemoglobin ABG O2 Capacity Meño Test A-a O2 Difference Hgb O2 Saturation Vent Mode Mechanical Rate FiO2 Tidal Volume PEEP Sodium Potassium Chloride Carbon Dioxide Anion Gap BUN Creatinine Est GFR ( Amer) Est GFR (Non-Af Amer) Random Glucose Lactic Acid Calcium Total Bilirubin AST ALT Alkaline Phosphatase Troponin I Total Protein Albumin Globulin Albumin/Globulin Ratio Lipase Urine Color Urine Clarity Urine pH Ur Specific [place] Urine Protein Urine Glucose (UA) Urine Ketones Urine Blood Urine Nitrate Urine Bilirubin Urine Urobilinogen Ur Leukocyte Esterase Urine RBC (Auto) Urine Microscopic WBC Ur Squamous Epith Cells Hyaline Casts Salicylates < 1.0 Urine Opiates Screen Urine Methadone Screen Acetaminophen < 10.0 L Ur Barbiturates Screen Ur Phencyclidine Scrn Ur Amphetamines Screen U Benzodiazepines Scrn U Oth Cocaine Metabols U Cannabinoids Screen Alcohol, Quantitative Blood Type O POSITIVE Blood Type Confirm Antibody Screen Negative BBK History Checked No verified bt 12/15/17 12/15/17 12/15/17 01:18 01:18 02:42 WBC RBC Hgb Hct MCV MCH MCHC RDW Plt Count MPV Neut % (Auto) Lymph % (Auto) [place] % (Auto) Eos % (Auto) Baso % (Auto) Neut # (Auto) Lymph # (Auto) [place] # (Auto) Eos # (Auto) Baso # (Auto) Neutrophils % (Manual) Band Neutrophils % Lymphocytes % (Manual) Monocytes % (Manual) Eosinophils % (Manual) Metamyelocytes % Platelet Estimate Anisocytosis (manual) Macrocytosis (manual) Rouleaux PT INR APTT pCO2 pO2 HCO3 ABG pH ABG Total CO2 ABG O2 Saturation ABG O2 Content ABG Base Excess ABG Hemoglobin ABG Carboxyhemoglobin POC ABG HHb (Measured) ABG Methemoglobin ABG O2 Capacity Meño Test A-a O2 Difference Hgb O2 Saturation Vent Mode Mechanical Rate FiO2 Tidal Volume PEEP Sodium Potassium Chloride Carbon Dioxide Anion Gap BUN Creatinine Est GFR ( Amer) Est GFR (Non-Af Amer) Random Glucose Lactic Acid Calcium Total Bilirubin AST ALT Alkaline Phosphatase Troponin I Total Protein Albumin Globulin Albumin/Globulin Ratio Lipase Urine Color Yellow Urine Clarity Slighty-cloudy Urine pH 6.0 Ur Specific Bronte 1.006 Urine Protein 30 Urine Glucose (UA) Neg Urine Ketones Trace Urine Blood Moderate Urine Nitrate Negative Urine Bilirubin Negative Urine Urobilinogen 0.2-1.0 Ur Leukocyte Esterase Neg Urine RBC (Auto) 2 Urine Microscopic WBC 2 Ur Squamous Epith Cells < 1 Hyaline Casts 0-2 Salicylates Urine Opiates Screen Negative Urine Methadone Screen Negative Acetaminophen Ur Barbiturates Screen Negative Ur Phencyclidine Scrn Negative Ur Amphetamines Screen Negative U Benzodiazepines Scrn Negative U Oth Cocaine Metabols Negative U Cannabinoids Screen Negative Alcohol, Quantitative Blood Type Blood Type Confirm O POSITIVE Antibody Screen BBK History Checked 12/15/17 12/15/17 05:28 09:20 WBC 14.3 H RBC 4.27 L Hgb 14.2 Hct 42.7 MCV 99.9 H MCH 33.3 H MCHC 33.3 RDW 14.8 H Plt Count 51 L MPV 9.8 Neut % (Auto) 90.8 H Lymph % (Auto) 2.9 L [place] % (Auto) 6.3 Eos % (Auto) 0.0 Baso % (Auto) 0.0 Neut # (Auto) 13.0 H Lymph # (Auto) 0.4 L [place] # (Auto) 0.9 H Eos # (Auto) 0.0 Baso # (Auto) 0.0 Neutrophils % (Manual) Band Neutrophils % Lymphocytes % (Manual) Monocytes % (Manual) Eosinophils % (Manual) Metamyelocytes % Platelet Estimate Anisocytosis (manual) Macrocytosis (manual) Rouleaux PT INR APTT pCO2 40 pO2 292 H HCO3 29.4 H ABG pH 7.48 H ABG Total CO2 31.0 H ABG O2 Saturation 100.6 H ABG O2 Content 22.6 ABG Base Excess 5.8 H ABG Hemoglobin 16.0 ABG Carboxyhemoglobin 1.4 POC ABG HHb (Measured) -0.6 L ABG Methemoglobin 1.7 ABG O2 Capacity 22.5 Meño Test Yes A-a O2 Difference 371.0 Hgb O2 Saturation 97.4 Vent Mode A/c Mechanical Rate 12 FiO2 100.0 Tidal Volume 500 PEEP 5 Sodium Potassium Chloride Carbon Dioxide Anion Gap BUN Creatinine Est GFR ( Amer) Est GFR (Non-Af Amer) Random Glucose Lactic Acid Calcium Total Bilirubin AST ALT Alkaline Phosphatase Troponin I Total Protein Albumin Globulin Albumin/Globulin Ratio Lipase Urine Color Urine Clarity Urine pH Ur Specific [place] Urine Protein Urine Glucose (UA) Urine Ketones Urine Blood Urine Nitrate Urine Bilirubin Urine Urobilinogen Ur Leukocyte Esterase Urine RBC (Auto) Urine Microscopic WBC Ur Squamous Epith Cells Hyaline Casts Salicylates Urine Opiates Screen Urine Methadone Screen Acetaminophen Ur Barbiturates Screen Ur Phencyclidine Scrn Ur Amphetamines Screen U Benzodiazepines Scrn U Oth Cocaine Metabols U Cannabinoids Screen Alcohol, Quantitative Blood Type Blood Type Confirm Antibody Screen BBK History Checked Assessment & Plan - Assessment and Plan (Free Text) Assessment: 52 yr old male with unkown etiology of large right subdural hematoma, coagulopathy secondary to most likely chronic alcohol use, who is now in critical condition. CT head just performed: shows extending hemorrhage into the fourth ventricle, and 3rd ventricle closed. Masive progression of edema and midline shift. A/P: 52 yr old male with large subdural/Possible subarachnoid hemorrhage now with uncal and transtentorial herniation, poor prognosis. Plan: 1. Continue hyperventilation and mannitol. 2. No anticoagulation. 3. Family to be contacted about living will and dnr status. 4. Repeat CT head in am.
--- NOTE | 2017-12-15 13:29 | CT ---
PROCEDURE: CT HEAD WITHOUT CONTRAST. HISTORY: subdural hematoma COMPARISON: 12/15/2017 at 01:39 hours. TECHNIQUE: Axial computed tomography images were obtained through the head/brain without intravenous contrast. Radiation dose: Total exam DLP = 1289 mGy-cm. This CT exam was performed using one or more of the following dose reduction techniques: Automated exposure control, adjustment of the mA and/or kV according to patient size, and/or use of iterative reconstruction technique. FINDINGS: HEMORRHAGE: The size of the large acute appearing right subdural hematoma - is similar. The marked leftward midline shift approximately 2.8 cm is similar-appearing acute appearing is similar. Additional intraventricular blood noted in the ventricle section. Subarachnoid hemorrhagic blood renoted and increased. Primarily at skullbase Posterior corpus callosum hematoma similar-appearing BRAIN: The no mass effect on the right cerebral hemisphere is similar to increased with interval increased right cerebellar hemispheric diffuse edema inferred. Interval increasing left inferior, left temporal and left posterior parietal and occipital lobe and left cerebral hemispheric edema. Interval increased mid brain edema as well as interval increased blood products midbrain level suggested. Progressive edema and acute infarcts are inferred. VENTRICLES: [id number] the blood in the posterior left and right posterior ventricles is renoted. Interval increased blood apparent in the 3rd ventricle and in the 4th ventricle. Interval progressive effacement of the cisternal spaces - progressing herniation inferred. CALVARIUM: No fracture seen PARANASAL SINUSES: Ethmoidal and sphenoid sinus inflammatory changes right maxillary sinus retention cysts as before MASTOID AIR CELLS: Unremarkable as visualized. No inflammatory changes. OTHER FINDINGS: Paired nasal tubing removed. IMPRESSION: Progressing herniation leftward and downward. Progressing bilateral acute infarcts. Progressing intercerebral edema and mass effect. Large right acute subdural hematoma -similar with large leftward midline shift similar to probably slightly slightly increased . Progressive increased intraventricular blood. Similar to slightly increased hydrocephalus. Interval increased subarachnoid blood Comments: Findings discussed with the physician hospitalist in the ICU, Dr. Stephens.
[2017-12-15] MEDS: levETIRAcetam 500 MG in Sodium Chloride 0.9% 100 ML IVPB SCH ×2 (14:01→21:41)
[2017-12-15] MEDS ORDERED: Labetalol 5mg/ml (4ml) IVP STA (14:22)
[2017-12-15] MEDS ORDERED: Labetalol 5mg/ml (4ml) ONE (14:26)
[2017-12-15] MEDS ORDERED: Acetaminophen 160 mg/5 ml UD PO PRN (15:29)
--- NOTE | 2017-12-15 15:33 | CP.CCUPN ---
CCU Subjective - Physician Review Subjective (Free Text): EVENTS OVERNIGHT REVIEWED: and summarized- 52M admitted overnight after being found unresponsive on the ground, unclear s/ p Fall versus other head trauma, multiple episodes of vomiting noted, intubated in the field, emergent CT heads showed large R SDH with leftward shift and local edema almost involving the entire R hemisphere, left ventricular blood noted as well. Presently comatose in ICU, breathing 20 on AC 12, TV 500, 60% with PEEP 5, has produced approx. 5 L of urine output since 7AM ; and pupils are 3-4 mm size and very sluggish, midline, without gaze preference nor nystagmus, corneals are absent as well as gag reflex, but carinal reflexes are present on deep ETT suctioning, and he is triggering the vent at 25 on set rate of 22 now. He has recd 2 units FFP overnight, and bolus dose of Decadron. Mannitol ordered as well as attempts at hyperventilation. Repeat CT Brain ordered. NeuroSurg eval noted and reviewed. Discussed present clinical condition with Neurologist: will continue aggressive therapy. The [facility] network has been notified. Girlfrienholly states she tried calling patients cell at 2:30pm and patient never responded, and she arrived home at 9:30PM and found him somnolent and loudly snoring on the floor with vomitus and urine incontinency, then EMS was called. Patient last seen and heard in [place] at approx. 1:00PM. Other vitals and I/O's reviewed. ROS: No other pertinent negs or positives on 10+ system review. PMSFH: All other Nursing and physician documentation reviewed to date; no new pertinent info noted relevant to current medical problems. CXR: ETT in AUTUMN bronchus, (already re-positioned upward); RUL interstitial changes ( my interp.) IMPRESSION / MAJOR PROBLEMS NOW: 1. Catastrophic R SDH with SAH component, with R hemispheric edema and leftward shift, + Left ventricular blood and repeat CT Brain showing no new bleeding but loss of 3rd and 4th ventricle (my interp of repeat CT Brain imaging). 2. Centrally- mediated DI 3. Accelerated Hypertension 2 SDH / SAH 4. Coagulopathy and Thrombocytopenia 2 Alcoholism PLAN: 1. Neurochecks Q1-2h, HOB elevation, mannitol, steroids, AED as per neurology. Platelet supplementation and correction of coagulopathy with FFP and Vit K. Interim hyperventilation, watch for excessive alkalosis. 2. Stop NSS IVFs, DDAVP to slow polyuria. Tap Water via enteral feeding tube. Serial Lytes. 3. Follow serum Osmo levels. 4. Repeat Trops (watch for myocardial ischemic effects from neurogenic sympathetic output). 5. Empiric abx coverage for Aspiration pneumonia. 6. Follow serial Lactates, no hypoperfusional state, nor hypoxemia, doubt severe sepsis physiology, check serum CK levels. 7. Keep SBP no higher than 140-150, tachycardic also at 140 in sinus tachy: was on Cardene infusion, stopped earlier, now Labetalol ordered for BP control for now. 8. Discussed clinical condition with girlfriend at the bedside and she understands present moribund status and poor prognosis. Time spent with this patient did not overlap with any other provider's medical or critical care time. Additionally the code selected for the services rendered in this note includes the time spent: talking to the patients family, associated physicians and reviewing hospital data/results not listed here which extended to a total of 70 minutes. CCU Objective - Vital Signs / Intake & Output Vital Signs (Last 4 hours): Vital Signs Temp 12/15/17 12:00 99.7 F H Intake and Output (Last 8hrs): Intake & Output 12/15/17 12/15/17 12/15/17 06:59 14:59 22:59 Weight 165 lb - Physical Exam Physical Exam Limitations: Positive for: Altered Mental Status Head: Positive for: Atraumatic, Normocephalic Pupils: Positive for: Non-Reactive (4 mm midline, no Dolls eyes, no corneals) Extroacular Muscles: Positive for: Other (fixed in mid-position). Negative for : Gaze Palsy Conjunctiva: Positive for: Normal. Negative for: Icteric Mouth: Positive for: Moist Mucous Membranes Neck: Positive for: Normal Range of Motion. Negative for: Meningeal Signs, JVD Respiratory/Chest: Positive for: Clear to Auscultation. Negative for: Accessory Muscle Use, Wheezes Cardiovascular: Positive for: Regular Rate and Rhythm, Tachycardic. Negative for: Murmurs, Rub Abdomen: Positive for: Normal Bowel Sounds. Negative for: Tenderness, Distention, Mass/Organomegaly Lower Extremity: Positive for: Normal Inspection, NORMAL PULSES. Negative for: Edema, CALF TENDERNESS, Cyanosis Neurological: Negative for: GCS=15 (GCS= 3T) Skin: Positive for: Warm, Dry. Negative for: Rashes - Medications Active Medications: Active Medications Generic Name Dose Route Start Last Admin Trade Name Freq PRN Reason Stop Dose Admin Dexamethasone 10 mg 12/15/17 12:00 12/15/17 14:06 Decadron Inj IV 10 mg Q12@0000,1200 PANFILO Administration Vancomycin HCl 1 gm/ Sodium 250 mls @ 250 mls/hr 12/15/17 14:45 Chloride IVPB Q12H PANFILO Protocol Piperacillin Sod/Tazobactam 100 mls @ 100 mls/hr 12/15/17 09:00 12/15/17 11: 23 Sod 3.375 gm/ Sodium Chloride IVPB 100 mls/hr Q6 PANFILO Administration Protocol Levetiracetam 500 mg/ Sodium 105 mls @ 210 mls/hr 12/15/17 12:00 12/15/17 14: 01 Chloride IVPB 210 mls/hr Q12 PANFILO Administration Labetalol HCl 20 mg 12/15/17 16:22 Trandate IVP Q3 PRN Systolic Blood Pressure Mannitol 25 gm 12/15/17 17:00 Mannitol IV Q8 PANFILO Morphine Sulfate 2 mg 12/15/17 02:30 Morphine IVP Q4H PRN Pain, severe (8-10) Ondansetron HCl 4 mg 12/15/17 02:30 Zofran Inj IVP Q6H PRN Nausea/Vomiting Pantoprazole Sodium 40 mg 12/15/17 09:00 12/15/17 11:19 Protonix Inj IVP 40 mg DAILY APNFILO Administration - Patient Studies Lab Studies: Lab Studies 12/15/17 12/15/17 12/15/17 Range/Units 09:20 09:20 09:20 WBC 14.3 H (4.8-10.8) K/uL RBC 4.27 L (4.40-5.90) Mil/uL Hgb 14.2 (12.0-18.0) g/dL Hct 42.7 (35.0-51.0) % MCV 99.9 H (80.0-94.0) fl MCH 33.3 H (27.0-31.0) pg MCHC 33.3 (33.0-37.0) g/dL RDW 14.8 H (11.5-14.5) % Plt Count 51 L (130-400) K/uL MPV 9.8 (7.2-11.7) fl Neut % (Auto) 90.8 H (50.0-75.0) % Lymph % (Auto) 2.9 L (20.0-40.0) % [place] % (Auto) 6.3 (0.0-10.0) % Eos % (Auto) 0.0 (0.0-4.0) % Baso % (Auto) 0.0 (0.0-2.0) % Neut # (Auto) 13.0 H (1.8-7.0) K/uL Lymph # (Auto) 0.4 L (1.0-4.3) K/uL [place] # (Auto) 0.9 H (0.0-0.8) K/uL Eos # (Auto) 0.0 (0.0-0.7) K/uL Baso # (Auto) 0.0 (0.0-0.2) K/uL Total Counted Cancelled Neutrophils % (Manual) Cancelled (42-75) % Band Neutrophils % Cancelled (0-2) % Lymphocytes % (Manual) Cancelled (20-50) % Reactive Lymphs % Cancelled Monocytes % (Manual) Cancelled (0-10) % Eosinophils % (Manual) Cancelled (0-7) % Basophils % (Manual) Cancelled Metamyelocytes % Cancelled (0-0) % Myelocytes % Cancelled Promyelocytes % Cancelled Blast Cells % Cancelled Plasma Cell % (Manual) Cancelled Nucleated RBC % Cancelled Hypersegmented Polys Cancelled Smudge Cells Cancelled Toxic Granulation Cancelled Dohle Bodies Cancelled Armida Rods Cancelled Platelet Estimate Cancelled (NORMAL) Plt Clumps, EDTA Cancelled Large Platelets Cancelled Giant Platelets Cancelled RBC Morphology Cancelled Polychromasia Cancelled Hypochromasia (manual) Cancelled Poikilocytosis (manual Cancelled Basophilic Stippling Cancelled Anisocytosis (manual) Cancelled Microcytosis (manual) Cancelled Macrocytosis (manual) Cancelled Spherocytes Cancelled Sickle Cells Cancelled Target Cells Cancelled Tear Drop Cells Cancelled Ovalocytes Cancelled Stomatocytes Cancelled Helmet Cells Cancelled Potts-Mogollon Bodies Cancelled [place] Cells Cancelled Acanthocytes (Spur) Cancelled Rouleaux Cancelled Schistocytes Cancelled PT (9.8-13.1) Seconds INR (0.9-1.2) APTT (25.6-37.1) Seconds pCO2 (35-45) mm/Hg pO2 (80-100) mm/Hg HCO3 (21-28) mmol/L ABG pH (7.35-7.45) ABG Total CO2 (22-28) mmol/L ABG O2 Saturation (95-98) % ABG O2 Content (15-23) ML/dL ABG Base Excess (-2.0-3.0) mmol/L ABG Hemoglobin (11.7-17.4) g/dL ABG Carboxyhemoglobin (0.5-1.5) % POC ABG HHb (Measured) (0.0-5.0) % ABG Methemoglobin (0.0-3.0) % ABG O2 Capacity (16-24) mL/dL Meño Test A-a O2 Difference mm/Hg Hgb O2 Saturation (95.0-98.0) % Vent Mode Mechanical Rate FiO2 % Tidal Volume PEEP Sodium 162 H* (132-148) mmol/l Potassium 2.9 L (3.6-5.0) MMOL/L Chloride 126 H (98-107) mmol/L Carbon Dioxide 26 (22-30) mmol/L Anion Gap 13 (10-20) BUN 5 L (9-20) mg/dl Creatinine 0.5 L (0.8-1.5) mg/dl Est GFR ( Amer) > 60 Est GFR (Non-Af Amer) > 60 Random Glucose 162 H (75-110) mg/dL Lactic Acid 2.0 (0.7-2.1) MMOL/L Calcium 8.0 L (8.4-10.2) mg/dL Phosphorus 0.6 L* (2.5-4.5) mg/dl Magnesium 2.1 (1.6-2.3) MG/DL Total Bilirubin 2.4 H (0.2-1.3) mg/dl AST 145 H (17-59) U/L ALT 64 (21-72) U/L Alkaline Phosphatase 122 (38-126) U/L Total Creatine Kinase 1374 H (55-170) U/L Troponin I (0.00-0.120) ng/mL Total Protein 7.5 (6.3-8.2) G/DL Albumin 3.2 L D (3.5-5.0) g/dL Globulin 4.3 H (2.2-3.9) gm/dL Albumin/Globulin Ratio 0.8 L (1.0-2.1) Lipase (23-300) U/L Urine Color (YELLOW) Urine Clarity (Clear) Urine pH (5.0-8.0) Ur Specific [place] (1.003-1.030) Urine Protein (NEGATIVE) mg/dL Urine Glucose (UA) (Normal) mg/dL Urine Ketones (NEGATIVE) mg/dL Urine Blood (NEGATIVE) Urine Nitrate (NEGATIVE) Urine Bilirubin (NEGATIVE) Urine Urobilinogen (0.2-1.0) mg/dL Ur Leukocyte Esterase (Negative) Rudolph/uL Urine RBC (Auto) (0-3) /hpf Urine Microscopic WBC (0-5) /hpf Ur Squamous Epith Cells (0-5) /hpf Hyaline Casts (0-2) /hpf Salicylates mg/dl Urine Opiates Screen (NEGATIVE) Urine Methadone Screen (NEGATIVE) Acetaminophen (10.0-30.0) ug/ml Ur Barbiturates Screen (NEGATIVE) Ur Phencyclidine Scrn (NEGATIVE) Ur Amphetamines Screen (NEGATIVE) U Benzodiazepines Scrn (NEGATIVE) U Oth Cocaine Metabols (NEGATIVE) U Cannabinoids Screen (NEGATIVE) Alcohol, Quantitative (0-10) mg/dl Blood Type Blood Type Confirm Antibody Screen BBK History Checked 12/15/17 12/15/17 12/15/17 Range/Units 05:28 02:42 01:18 WBC (4.8-10.8) K/uL RBC (4.40-5.90) Mil/uL Hgb (12.0-18.0) g/dL Hct (35.0-51.0) % MCV (80.0-94.0) fl MCH (27.0-31.0) pg MCHC (33.0-37.0) g/dL RDW (11.5-14.5) % Plt Count (130-400) K/uL MPV (7.2-11.7) fl Neut % (Auto) (50.0-75.0) % Lymph % (Auto) (20.0-40.0) % [place] % (Auto) (0.0-10.0) % Eos % (Auto) (0.0-4.0) % Baso % (Auto) (0.0-2.0) % Neut # (Auto) (1.8-7.0) K/uL Lymph # (Auto) (1.0-4.3) K/uL [place] # (Auto) (0.0-0.8) K/uL Eos # (Auto) (0.0-0.7) K/uL Baso # (Auto) (0.0-0.2) K/uL Total Counted Neutrophils % (Manual) (42-75) % Band Neutrophils % (0-2) % Lymphocytes % (Manual) (20-50) % Reactive Lymphs % Monocytes % (Manual) (0-10) % Eosinophils % (Manual) (0-7) % Basophils % (Manual) Metamyelocytes % (0-0) % Myelocytes % Promyelocytes % Blast Cells % Plasma Cell % (Manual) Nucleated RBC % Hypersegmented Polys Smudge Cells Toxic Granulation Dohle Bodies Armida Rods Platelet Estimate (NORMAL) Plt Clumps, EDTA Large Platelets Giant Platelets RBC Morphology Polychromasia Hypochromasia (manual) Poikilocytosis (manual Basophilic Stippling Anisocytosis (manual) Microcytosis (manual) Macrocytosis (manual) Spherocytes Sickle Cells Target Cells Tear Drop Cells Ovalocytes Stomatocytes Helmet Cells Potts-Mogollon Bodies Joni Cells Acanthocytes (Spur) Rouleaux Schistocytes PT (9.8-13.1) Seconds INR (0.9-1.2) APTT (25.6-37.1) Seconds pCO2 40 (35-45) mm/Hg pO2 292 H (80-100) mm/Hg HCO3 29.4 H (21-28) mmol/L ABG pH 7.48 H (7.35-7.45) ABG Total CO2 31.0 H (22-28) mmol/L ABG O2 Saturation 100.6 H (95-98) % ABG O2 Content 22.6 (15-23) ML/dL ABG Base Excess 5.8 H (-2.0-3.0) mmol/L ABG Hemoglobin 16.0 (11.7-17.4) g/dL ABG Carboxyhemoglobin 1.4 (0.5-1.5) % POC ABG HHb (Measured) -0.6 L (0.0-5.0) % ABG Methemoglobin 1.7 (0.0-3.0) % ABG O2 Capacity 22.5 (16-24) mL/dL Meño Test Yes A-a O2 Difference 371.0 mm/Hg Hgb O2 Saturation 97.4 (95.0-98.0) % Vent Mode A/c Mechanical Rate 12 FiO2 100.0 % Tidal Volume 500 PEEP 5 Sodium (132-148) mmol/l Potassium (3.6-5.0) MMOL/L Chloride (98-107) mmol/L Carbon Dioxide (22-30) mmol/L Anion Gap (10-20) BUN (9-20) mg/dl Creatinine (0.8-1.5) mg/dl Est GFR ( Amer) Est GFR (Non-Af Amer) Random Glucose (75-110) mg/dL Lactic Acid (0.7-2.1) MMOL/L Calcium (8.4-10.2) mg/dL Phosphorus (2.5-4.5) mg/dl Magnesium (1.6-2.3) MG/DL Total Bilirubin (0.2-1.3) mg/dl AST (17-59) U/L ALT (21-72) U/L Alkaline Phosphatase (38-126) U/L Total Creatine Kinase (55-170) U/L Troponin I (0.00-0.120) ng/mL Total Protein (6.3-8.2) G/DL Albumin (3.5-5.0) g/dL Globulin (2.2-3.9) gm/dL Albumin/Globulin Ratio (1.0-2.1) Lipase (23-300) U/L Urine Color Yellow (YELLOW) Urine Clarity Slighty-cloudy (Clear) Urine pH 6.0 (5.0-8.0) Ur Specific [place] 1.006 (1.003-1.030) Urine Protein 30 (NEGATIVE) mg/dL Urine Glucose (UA) Neg (Normal) mg/dL Urine Ketones Trace (NEGATIVE) mg/dL Urine Blood Moderate (NEGATIVE) Urine Nitrate Negative (NEGATIVE) Urine Bilirubin Negative (NEGATIVE) Urine Urobilinogen 0.2-1.0 (0.2-1.0) mg/dL Ur Leukocyte Esterase Neg (Negative) Rudolph/uL Urine RBC (Auto) 2 (0-3) /hpf Urine Microscopic WBC 2 (0-5) /hpf Ur Squamous Epith Cells < 1 (0-5) /hpf Hyaline Casts 0-2 (0-2) /hpf Salicylates mg/dl Urine Opiates Screen (NEGATIVE) Urine Methadone Screen (NEGATIVE) Acetaminophen (10.0-30.0) ug/ml Ur Barbiturates Screen (NEGATIVE) Ur Phencyclidine Scrn (NEGATIVE) Ur Amphetamines Screen (NEGATIVE) U Benzodiazepines Scrn (NEGATIVE) U Oth Cocaine Metabols (NEGATIVE) U Cannabinoids Screen (NEGATIVE) Alcohol, Quantitative (0-10) mg/dl Blood Type Blood Type Confirm O POSITIVE Antibody Screen BBK History Checked 12/15/17 12/15/17 12/15/17 Range/Units 01:18 01:11 01:11 WBC (4.8-10.8) K/uL RBC (4.40-5.90) Mil/uL Hgb (12.0-18.0) g/dL Hct (35.0-51.0) % MCV (80.0-94.0) fl MCH (27.0-31.0) pg MCHC (33.0-37.0) g/dL RDW (11.5-14.5) % Plt Count (130-400) K/uL MPV (7.2-11.7) fl Neut % (Auto) (50.0-75.0) % Lymph % (Auto) (20.0-40.0) % [place] % (Auto) (0.0-10.0) % Eos % (Auto) (0.0-4.0) % Baso % (Auto) (0.0-2.0) % Neut # (Auto) (1.8-7.0) K/uL Lymph # (Auto) (1.0-4.3) K/uL [place] # (Auto) (0.0-0.8) K/uL Eos # (Auto) (0.0-0.7) K/uL Baso # (Auto) (0.0-0.2) K/uL Total Counted Neutrophils % (Manual) (42-75) % Band Neutrophils % (0-2) % Lymphocytes % (Manual) (20-50) % Reactive Lymphs % Monocytes % (Manual) (0-10) % Eosinophils % (Manual) (0-7) % Basophils % (Manual) Metamyelocytes % (0-0) % Myelocytes % Promyelocytes % Blast Cells % Plasma Cell % (Manual) Nucleated RBC % Hypersegmented Polys Smudge Cells Toxic Granulation Dohle Bodies Armida Rods Platelet Estimate (NORMAL) Plt Clumps, EDTA Large Platelets Giant Platelets RBC Morphology Polychromasia Hypochromasia (manual) Poikilocytosis (manual Basophilic Stippling Anisocytosis (manual) Microcytosis (manual) Macrocytosis (manual) Spherocytes Sickle Cells Target Cells Tear Drop Cells Ovalocytes Stomatocytes Helmet Cells Potts-Mogollon Bodies [place] Cells Acanthocytes (Spur) Rouleaux Schistocytes PT (9.8-13.1) Seconds INR (0.9-1.2) APTT (25.6-37.1) Seconds pCO2 (35-45) mm/Hg pO2 (80-100) mm/Hg HCO3 (21-28) mmol/L ABG pH (7.35-7.45) ABG Total CO2 (22-28) mmol/L ABG O2 Saturation (95-98) % ABG O2 Content (15-23) ML/dL ABG Base Excess (-2.0-3.0) mmol/L ABG Hemoglobin (11.7-17.4) g/dL ABG Carboxyhemoglobin (0.5-1.5) % POC ABG HHb (Measured) (0.0-5.0) % ABG Methemoglobin (0.0-3.0) % ABG O2 Capacity (16-24) mL/dL Meño Test A-a O2 Difference mm/Hg Hgb O2 Saturation (95.0-98.0) % Vent Mode Mechanical Rate FiO2 % Tidal Volume PEEP Sodium (132-148) mmol/l Potassium (3.6-5.0) MMOL/L Chloride (98-107) mmol/L Carbon Dioxide (22-30) mmol/L Anion Gap (10-20) BUN (9-20) mg/dl Creatinine (0.8-1.5) mg/dl Est GFR ( Amer) Est GFR (Non-Af Amer) Random Glucose (75-110) mg/dL Lactic Acid (0.7-2.1) MMOL/L Calcium (8.4-10.2) mg/dL Phosphorus (2.5-4.5) mg/dl Magnesium (1.6-2.3) MG/DL Total Bilirubin (0.2-1.3) mg/dl AST (17-59) U/L ALT (21-72) U/L Alkaline Phosphatase (38-126) U/L Total Creatine Kinase (55-170) U/L Troponin I (0.00-0.120) ng/mL Total Protein (6.3-8.2) G/DL Albumin (3.5-5.0) g/dL Globulin (2.2-3.9) gm/dL Albumin/Globulin Ratio (1.0-2.1) Lipase (23-300) U/L Urine Color (YELLOW) Urine Clarity (Clear) Urine pH (5.0-8.0) Ur Specific [place] (1.003-1.030) Urine Protein (NEGATIVE) mg/dL Urine Glucose (UA) (Normal) mg/dL Urine Ketones (NEGATIVE) mg/dL Urine Blood (NEGATIVE) Urine Nitrate (NEGATIVE) Urine Bilirubin (NEGATIVE) Urine Urobilinogen (0.2-1.0) mg/dL Ur Leukocyte Esterase (Negative) Rudolph/uL Urine RBC (Auto) (0-3) /hpf Urine Microscopic WBC (0-5) /hpf Ur Squamous Epith Cells (0-5) /hpf Hyaline Casts (0-2) /hpf Salicylates < 1.0 mg/dl Urine Opiates Screen Negative (NEGATIVE) Urine Methadone Screen Negative (NEGATIVE) Acetaminophen < 10.0 L (10.0-30.0) ug/ml Ur Barbiturates Screen Negative (NEGATIVE) Ur Phencyclidine Scrn Negative (NEGATIVE) Ur Amphetamines Screen Negative (NEGATIVE) U Benzodiazepines Scrn Negative (NEGATIVE) U Oth Cocaine Metabols Negative (NEGATIVE) U Cannabinoids Screen Negative (NEGATIVE) Alcohol, Quantitative (0-10) mg/dl Blood Type O POSITIVE Blood Type Confirm Antibody Screen Negative BBK History Checked No verified bt 12/15/17 12/15/17 12/15/17 Range/Units 01:11 01:11 01:11 WBC 13.8 H (4.8-10.8) K/uL RBC 4.52 (4.40-5.90) Mil/uL Hgb 15.1 (12.0-18.0) g/dL Hct 45.5 (35.0-51.0) % MCV 100.7 H D (80.0-94.0) fl MCH 33.5 H (27.0-31.0) pg MCHC 33.2 (33.0-37.0) g/dL RDW 15.0 H (11.5-14.5) % Plt Count 61 L D (130-400) K/uL MPV 9.6 (7.2-11.7) fl Neut % (Auto) 88.8 H (50.0-75.0) % Lymph % (Auto) 4.8 L (20.0-40.0) % [place] % (Auto) 6.3 (0.0-10.0) % Eos % (Auto) 0.0 (0.0-4.0) % Baso % (Auto) 0.1 (0.0-2.0) % Neut # (Auto) 12.2 H (1.8-7.0) K/uL Lymph # (Auto) 0.7 L (1.0-4.3) K/uL [place] # (Auto) 0.9 H (0.0-0.8) K/uL Eos # (Auto) 0.0 (0.0-0.7) K/uL Baso # (Auto) 0.0 (0.0-0.2) K/uL Total Counted Neutrophils % (Manual) 81 H (42-75) % Band Neutrophils % 7 H (0-2) % Lymphocytes % (Manual) 4 L (20-50) % Reactive Lymphs % Monocytes % (Manual) 6 (0-10) % Eosinophils % (Manual) 1 (0-7) % Basophils % (Manual) Metamyelocytes % 1 H (0-0) % Myelocytes % Promyelocytes % Blast Cells % Plasma Cell % (Manual) Nucleated RBC % Hypersegmented Polys Smudge Cells Toxic Granulation Dohle Bodies Armida Rods Platelet Estimate Decreased L (NORMAL) Plt Clumps, EDTA Large Platelets Giant Platelets RBC Morphology Polychromasia Hypochromasia (manual) Poikilocytosis (manual Basophilic Stippling Anisocytosis (manual) Slight Microcytosis (manual) Macrocytosis (manual) Slight Spherocytes Sickle Cells Target Cells Tear Drop Cells Ovalocytes Stomatocytes Helmet Cells Potts-Mogollon Bodies [place] Cells Acanthocytes (Spur) Rouleaux Slight Schistocytes PT 16.0 H (9.8-13.1) Seconds INR 1.4 H (0.9-1.2) APTT 31.7 (25.6-37.1) Seconds pCO2 (35-45) mm/Hg pO2 (80-100) mm/Hg HCO3 (21-28) mmol/L ABG pH (7.35-7.45) ABG Total CO2 (22-28) mmol/L ABG O2 Saturation (95-98) % ABG O2 Content (15-23) ML/dL ABG Base Excess (-2.0-3.0) mmol/L ABG Hemoglobin (11.7-17.4) g/dL ABG Carboxyhemoglobin (0.5-1.5) % POC ABG HHb (Measured) (0.0-5.0) % ABG Methemoglobin (0.0-3.0) % ABG O2 Capacity (16-24) mL/dL Meño Test A-a O2 Difference mm/Hg Hgb O2 Saturation (95.0-98.0) % Vent Mode Mechanical Rate FiO2 % Tidal Volume PEEP Sodium (132-148) mmol/l Potassium (3.6-5.0) MMOL/L Chloride (98-107) mmol/L Carbon Dioxide (22-30) mmol/L Anion Gap (10-20) BUN (9-20) mg/dl Creatinine (0.8-1.5) mg/dl Est GFR ( Amer) Est GFR (Non-Af Amer) Random Glucose (75-110) mg/dL Lactic Acid 7.8 H* (0.7-2.1) MMOL/L Calcium (8.4-10.2) mg/dL Phosphorus (2.5-4.5) mg/dl Magnesium (1.6-2.3) MG/DL Total Bilirubin (0.2-1.3) mg/dl AST (17-59) U/L ALT (21-72) U/L Alkaline Phosphatase (38-126) U/L Total Creatine Kinase (55-170) U/L Troponin I (0.00-0.120) ng/mL Total Protein (6.3-8.2) G/DL Albumin (3.5-5.0) g/dL Globulin (2.2-3.9) gm/dL Albumin/Globulin Ratio (1.0-2.1) Lipase (23-300) U/L Urine Color (YELLOW) Urine Clarity (Clear) Urine pH (5.0-8.0) Ur Specific [place] (1.003-1.030) Urine Protein (NEGATIVE) mg/dL Urine Glucose (UA) (Normal) mg/dL Urine Ketones (NEGATIVE) mg/dL Urine Blood (NEGATIVE) Urine Nitrate (NEGATIVE) Urine Bilirubin (NEGATIVE) Urine Urobilinogen (0.2-1.0) mg/dL Ur Leukocyte Esterase (Negative) Rudolph/uL Urine RBC (Auto) (0-3) /hpf Urine Microscopic WBC (0-5) /hpf Ur Squamous Epith Cells (0-5) /hpf Hyaline Casts (0-2) /hpf Salicylates mg/dl Urine Opiates Screen (NEGATIVE) Urine Methadone Screen (NEGATIVE) Acetaminophen (10.0-30.0) ug/ml Ur Barbiturates Screen (NEGATIVE) Ur Phencyclidine Scrn (NEGATIVE) Ur Amphetamines Screen (NEGATIVE) U Benzodiazepines Scrn (NEGATIVE) U Oth Cocaine Metabols (NEGATIVE) U Cannabinoids Screen (NEGATIVE) Alcohol, Quantitative (0-10) mg/dl Blood Type Blood Type Confirm Antibody Screen BBK History Checked 12/15/17 Range/Units 01:11 WBC (4.8-10.8) K/uL RBC (4.40-5.90) Mil/uL Hgb (12.0-18.0) g/dL Hct (35.0-51.0) % MCV (80.0-94.0) fl MCH (27.0-31.0) pg MCHC (33.0-37.0) g/dL RDW (11.5-14.5) % Plt Count (130-400) K/uL MPV (7.2-11.7) fl Neut % (Auto) (50.0-75.0) % Lymph % (Auto) (20.0-40.0) % [place] % (Auto) (0.0-10.0) % Eos % (Auto) (0.0-4.0) % Baso % (Auto) (0.0-2.0) % Neut # (Auto) (1.8-7.0) K/uL Lymph # (Auto) (1.0-4.3) K/uL [place] # (Auto) (0.0-0.8) K/uL Eos # (Auto) (0.0-0.7) K/uL Baso # (Auto) (0.0-0.2) K/uL Total Counted Neutrophils % (Manual) (42-75) % Band Neutrophils % (0-2) % Lymphocytes % (Manual) (20-50) % Reactive Lymphs % Monocytes % (Manual) (0-10) % Eosinophils % (Manual) (0-7) % Basophils % (Manual) Metamyelocytes % (0-0) % Myelocytes % Promyelocytes % Blast Cells % Plasma Cell % (Manual) Nucleated RBC % Hypersegmented Polys Smudge Cells Toxic Granulation Dohle Bodies Armida Rods Platelet Estimate (NORMAL) Plt Clumps, EDTA Large Platelets Giant Platelets RBC Morphology Polychromasia Hypochromasia (manual) Poikilocytosis (manual Basophilic Stippling Anisocytosis (manual) Microcytosis (manual) Macrocytosis (manual) Spherocytes Sickle Cells Target Cells Tear Drop Cells Ovalocytes Stomatocytes Helmet Cells Potts-Mogollon Bodies [place] Cells Acanthocytes (Spur) Rouleaux Schistocytes PT (9.8-13.1) Seconds INR (0.9-1.2) APTT (25.6-37.1) Seconds pCO2 (35-45) mm/Hg pO2 (80-100) mm/Hg HCO3 (21-28) mmol/L ABG pH (7.35-7.45) ABG Total CO2 (22-28) mmol/L ABG O2 Saturation (95-98) % ABG O2 Content (15-23) ML/dL ABG Base Excess (-2.0-3.0) mmol/L ABG Hemoglobin (11.7-17.4) g/dL ABG Carboxyhemoglobin (0.5-1.5) % POC ABG HHb (Measured) (0.0-5.0) % ABG Methemoglobin (0.0-3.0) % ABG O2 Capacity (16-24) mL/dL Meño Test A-a O2 Difference mm/Hg Hgb O2 Saturation (95.0-98.0) % Vent Mode Mechanical Rate FiO2 % Tidal Volume PEEP Sodium 149 H (132-148) mmol/l Potassium 2.6 L (3.6-5.0) MMOL/L Chloride 106 (98-107) mmol/L Carbon Dioxide 22 (22-30) mmol/L Anion Gap 24 H (10-20) BUN 6 L (9-20) mg/dl Creatinine 0.7 L (0.8-1.5) mg/dl Est GFR ( Amer) > 60 Est GFR (Non-Af Amer) > 60 Random Glucose 229 H (75-110) mg/dL Lactic Acid (0.7-2.1) MMOL/L Calcium 9.6 (8.4-10.2) mg/dL Phosphorus (2.5-4.5) mg/dl Magnesium (1.6-2.3) MG/DL Total Bilirubin 2.6 H (0.2-1.3) mg/dl AST 170 H (17-59) U/L ALT 55 (21-72) U/L Alkaline Phosphatase 142 H (38-126) U/L Total Creatine Kinase (55-170) U/L Troponin I 0.2920 H* (0.00-0.120) ng/mL Total Protein 9.8 H (6.3-8.2) G/DL Albumin 4.4 (3.5-5.0) g/dL Globulin 5.4 H (2.2-3.9) gm/dL Albumin/Globulin Ratio 0.8 L (1.0-2.1) Lipase 141 (23-300) U/L Urine Color (YELLOW) Urine Clarity (Clear) Urine pH (5.0-8.0) Ur Specific [place] (1.003-1.030) Urine Protein (NEGATIVE) mg/dL Urine Glucose (UA) (Normal) mg/dL Urine Ketones (NEGATIVE) mg/dL Urine Blood (NEGATIVE) Urine Nitrate (NEGATIVE) Urine Bilirubin (NEGATIVE) Urine Urobilinogen (0.2-1.0) mg/dL Ur Leukocyte Esterase (Negative) Rud[place]/uL Urine RBC (Auto) (0-3) /hpf Urine Microscopic WBC (0-5) /hpf Ur Squamous Epith Cells (0-5) /hpf Hyaline Casts (0-2) /hpf Salicylates mg/dl Urine Opiates Screen (NEGATIVE) Urine Methadone Screen (NEGATIVE) Acetaminophen (10.0-30.0) ug/ml Ur Barbiturates Screen (NEGATIVE) Ur Phencyclidine Scrn (NEGATIVE) Ur Amphetamines Screen (NEGATIVE) U Benzodiazepines Scrn (NEGATIVE) U Oth Cocaine Metabols (NEGATIVE) U Cannabinoids Screen (NEGATIVE) Alcohol, Quantitative < 10 (0-10) mg/dl Blood Type Blood Type Confirm Antibody Screen BBK History Checked Laboratory Results - last 24 hr 12/15/17 12/15/17 12/15/17 01:11 01:11 01:11 WBC 13.8 H RBC 4.52 Hgb 15.1 Hct 45.5 MCV 100.7 H D MCH 33.5 H MCHC 33.2 RDW 15.0 H Plt Count 61 L D MPV 9.6 Neut % (Auto) 88.8 H Lymph % (Auto) 4.8 L [place] % (Auto) 6.3 Eos % (Auto) 0.0 Baso % (Auto) 0.1 Neut # (Auto) 12.2 H Lymph # (Auto) 0.7 L [place] # (Auto) 0.9 H Eos # (Auto) 0.0 Baso # (Auto) 0.0 Total Counted Neutrophils % (Manual) 81 H Band Neutrophils % 7 H Lymphocytes % (Manual) 4 L Reactive Lymphs % Monocytes % (Manual) 6 Eosinophils % (Manual) 1 Basophils % (Manual) Metamyelocytes % 1 H Myelocytes % Promyelocytes % Blast Cells % Plasma Cell % (Manual) Nucleated RBC % Hypersegmented Polys Smudge Cells Toxic Granulation Dohle Bodies Armida Rods Platelet Estimate Decreased L Plt Clumps, EDTA Large Platelets Giant Platelets RBC Morphology Polychromasia Hypochromasia (manual) Poikilocytosis (manual Basophilic Stippling Anisocytosis (manual) Slight Microcytosis (manual) Macrocytosis (manual) Slight Spherocytes Sickle Cells Target Cells Tear Drop Cells Ovalocytes Stomatocytes Helmet Cells Potts-Mogollon Bodies [place] Cells Acanthocytes (Spur) Rouleaux Slight Schistocytes PT INR APTT pCO2 pO2 HCO3 ABG pH ABG Total CO2 ABG O2 Saturation ABG O2 Content ABG Base Excess ABG Hemoglobin ABG Carboxyhemoglobin POC ABG HHb (Measured) ABG Methemoglobin ABG O2 Capacity Meño Test A-a O2 Difference Hgb O2 Saturation Vent Mode Mechanical Rate FiO2 Tidal Volume PEEP Sodium 149 H Potassium 2.6 L Chloride 106 Carbon Dioxide 22 Anion Gap 24 H BUN 6 L Creatinine 0.7 L Est GFR ( Amer) > 60 Est GFR (Non-Af Amer) > 60 Random Glucose 229 H Lactic Acid 7.8 H* Calcium 9.6 Phosphorus Magnesium Total Bilirubin 2.6 H AST 170 H ALT 55 Alkaline Phosphatase 142 H Total Creatine Kinase Troponin I 0.2920 H* Total Protein 9.8 H Albumin 4.4 Globulin 5.4 H Albumin/Globulin Ratio 0.8 L Lipase 141 Urine Color Urine Clarity Urine pH Ur Specific [place] Urine Protein Urine Glucose (UA) Urine Ketones Urine Blood Urine Nitrate Urine Bilirubin Urine Urobilinogen Ur Leukocyte Esterase Urine RBC (Auto) Urine Microscopic WBC Ur Squamous Epith Cells Hyaline Casts Salicylates Urine Opiates Screen Urine Methadone Screen Acetaminophen Ur Barbiturates Screen Ur Phencyclidine Scrn Ur Amphetamines Screen U Benzodiazepines Scrn U Oth Cocaine Metabols U Cannabinoids Screen Alcohol, Quantitative < 10 Blood Type Blood Type Confirm Antibody Screen BBK History Checked 12/15/17 12/15/17 12/15/17 01:11 01:11 01:11 WBC RBC Hgb Hct MCV MCH MCHC RDW Plt Count MPV Neut % (Auto) Lymph % (Auto) [place] % (Auto) Eos % (Auto) Baso % (Auto) Neut # (Auto) Lymph # (Auto) [place] # (Auto) Eos # (Auto) Baso # (Auto) Total Counted Neutrophils % (Manual) Band Neutrophils % Lymphocytes % (Manual) Reactive Lymphs % Monocytes % (Manual) Eosinophils % (Manual) Basophils % (Manual) Metamyelocytes % Myelocytes % Promyelocytes % Blast Cells % Plasma Cell % (Manual) Nucleated RBC % Hypersegmented Polys Smudge Cells Toxic Granulation Dohle Bodies Armida Rods Platelet Estimate Plt Clumps, EDTA Large Platelets Giant Platelets RBC Morphology Polychromasia Hypochromasia (manual) Poikilocytosis (manual Basophilic Stippling Anisocytosis (manual) Microcytosis (manual) Macrocytosis (manual) Spherocytes Sickle Cells Target Cells Tear Drop Cells Ovalocytes Stomatocytes Helmet Cells Potts-Mogollon Bodies [place] Cells Acanthocytes (Spur) Rouleaux Schistocytes PT 16.0 H INR 1.4 H APTT 31.7 pCO2 pO2 HCO3 ABG pH ABG Total CO2 ABG O2 Saturation ABG O2 Content ABG Base Excess ABG Hemoglobin ABG Carboxyhemoglobin POC ABG HHb (Measured) ABG Methemoglobin ABG O2 Capacity Meño Test A-a O2 Difference Hgb O2 Saturation Vent Mode Mechanical Rate FiO2 Tidal Volume PEEP Sodium Potassium Chloride Carbon Dioxide Anion Gap BUN Creatinine Est GFR ( Amer) Est GFR (Non-Af Amer) Random Glucose Lactic Acid Calcium Phosphorus Magnesium Total Bilirubin AST ALT Alkaline Phosphatase Total Creatine Kinase Troponin I Total Protein Albumin Globulin Albumin/Globulin Ratio Lipase Urine Color Urine Clarity Urine pH Ur Specific [place] Urine Protein Urine Glucose (UA) Urine Ketones Urine Blood Urine Nitrate Urine Bilirubin Urine Urobilinogen Ur Leukocyte Esterase Urine RBC (Auto) Urine Microscopic WBC Ur Squamous Epith Cells Hyaline Casts Salicylates < 1.0 Urine Opiates Screen Urine Methadone Screen Acetaminophen < 10.0 L Ur Barbiturates Screen Ur Phencyclidine Scrn Ur Amphetamines Screen U Benzodiazepines Scrn U Oth Cocaine Metabols U Cannabinoids Screen Alcohol, Quantitative Blood Type O POSITIVE Blood Type Confirm Antibody Screen Negative BBK History Checked No verified bt 12/15/17 12/15/17 12/15/17 01:18 01:18 02:42 WBC RBC Hgb Hct MCV MCH MCHC RDW Plt Count MPV Neut % (Auto) Lymph % (Auto) [place] % (Auto) Eos % (Auto) Baso % (Auto) Neut # (Auto) Lymph # (Auto) [place] # (Auto) Eos # (Auto) Baso # (Auto) Total Counted Neutrophils % (Manual) Band Neutrophils % Lymphocytes % (Manual) Reactive Lymphs % Monocytes % (Manual) Eosinophils % (Manual) Basophils % (Manual) Metamyelocytes % Myelocytes % Promyelocytes % Blast Cells % Plasma Cell % (Manual) Nucleated RBC % Hypersegmented Polys Smudge Cells Toxic Granulation Dohle Bodies Armida Rods Platelet Estimate Plt Clumps, EDTA Large Platelets Giant Platelets RBC Morphology Polychromasia Hypochromasia (manual) Poikilocytosis (manual Basophilic Stippling Anisocytosis (manual) Microcytosis (manual) Macrocytosis (manual) Spherocytes Sickle Cells Target Cells Tear Drop Cells Ovalocytes Stomatocytes Helmet Cells Potts-[place]ogoll[place] Bodies Joni Cells Acanthocytes (Spur) Rouleaux Schistocytes PT INR APTT pCO2 pO2 HCO3 ABG pH ABG Total CO2 ABG O2 Saturation ABG O2 Content ABG Base Excess ABG Hemoglobin ABG Carboxyhemoglobin POC ABG HHb (Measured) ABG Methemoglobin ABG O2 Capacity Meño Test A-a O2 Difference Hgb O2 Saturation Vent Mode Mechanical Rate FiO2 Tidal Volume PEEP Sodium Potassium Chloride Carbon Dioxide Anion Gap BUN Creatinine Est GFR ( Amer) Est GFR (Non-Af Amer) Random Glucose Lactic Acid Calcium Phosphorus Magnesium Total Bilirubin AST ALT Alkaline Phosphatase Total Creatine Kinase Troponin I Total Protein Albumin Globulin Albumin/Globulin Ratio Lipase Urine Color Yellow Urine Clarity Slighty-cloudy Urine pH 6.0 Ur Specific [place] 1.006 Urine Protein 30 Urine Glucose (UA) Neg Urine Ketones Trace Urine Blood Moderate Urine Nitrate Negative Urine Bilirubin Negative Urine Urobilinogen 0.2-1.0 Ur Leukocyte Esterase Neg Urine RBC (Auto) 2 Urine Microscopic WBC 2 Ur Squamous Epith Cells < 1 Hyaline Casts 0-2 Salicylates Urine Opiates Screen Negative Urine Methadone Screen Negative Acetaminophen Ur Barbiturates Screen Negative Ur Phencyclidine Scrn Negative Ur Amphetamines Screen Negative U Benzodiazepines Scrn Negative U Oth Cocaine Metabols Negative U Cannabinoids Screen Negative Alcohol, Quantitative Blood Type Blood Type Confirm O POSITIVE Antibody Screen BBK History Checked 12/15/17 12/15/17 12/15/17 05:28 09:20 09:20 WBC 14.3 H RBC 4.27 L Hgb 14.2 Hct 42.7 MCV 99.9 H MCH 33.3 H MCHC 33.3 RDW 14.8 H Plt Count 51 L MPV 9.8 Neut % (Auto) 90.8 H Lymph % (Auto) 2.9 L [place] % (Auto) 6.3 Eos % (Auto) 0.0 Baso % (Auto) 0.0 Neut # (Auto) 13.0 H Lymph # (Auto) 0.4 L [place] # (Auto) 0.9 H Eos # (Auto) 0.0 Baso # (Auto) 0.0 Total Counted Cancelled Neutrophils % (Manual) Cancelled Band Neutrophils % Cancelled Lymphocytes % (Manual) Cancelled Reactive Lymphs % Cancelled Monocytes % (Manual) Cancelled Eosinophils % (Manual) Cancelled Basophils % (Manual) Cancelled Metamyelocytes % Cancelled Myelocytes % Cancelled Promyelocytes % Cancelled Blast Cells % Cancelled Plasma Cell % (Manual) Cancelled Nucleated RBC % Cancelled Hypersegmented Polys Cancelled Smudge Cells Cancelled Toxic Granulation Cancelled Dohle Bodies Cancelled Armida Rods Cancelled Platelet Estimate Cancelled Plt Clumps, EDTA Cancelled Large Platelets Cancelled Giant Platelets Cancelled RBC Morphology Cancelled Polychromasia Cancelled Hypochromasia (manual) Cancelled Poikilocytosis (manual Cancelled Basophilic Stippling Cancelled Anisocytosis (manual) Cancelled Microcytosis (manual) Cancelled Macrocytosis (manual) Cancelled Spherocytes Cancelled Sickle Cells Cancelled Target Cells Cancelled Tear Drop Cells Cancelled Ovalocytes Cancelled Stomatocytes Cancelled Helmet Cells Cancelled Potts-Mogoll[place] Bodies Cancelled Joni Cells Cancelled Acanthocytes (Spur) Cancelled Rouleaux Cancelled Schistocytes Cancelled PT INR APTT pCO2 40 pO2 292 H HCO3 29.4 H ABG pH 7.48 H ABG Total CO2 31.0 H ABG O2 Saturation 100.6 H ABG O2 Content 22.6 ABG Base Excess 5.8 H ABG Hemoglobin 16.0 ABG Carboxyhemoglobin 1.4 POC ABG HHb (Measured) -0.6 L ABG Methemoglobin 1.7 ABG O2 Capacity 22.5 Meño Test Yes A-a O2 Difference 371.0 Hgb O2 Saturation 97.4 Vent Mode A/c Mechanical Rate 12 FiO2 100.0 Tidal Volume 500 PEEP 5 Sodium 162 H* Potassium 2.9 L Chloride 126 H Carbon Dioxide 26 Anion Gap 13 BUN 5 L Creatinine 0.5 L Est GFR ( Amer) > 60 Est GFR (Non-Af Amer) > 60 Random Glucose 162 H Lactic Acid Calcium 8.0 L Phosphorus 0.6 L* Magnesium 2.1 Total Bilirubin 2.4 H AST 145 H ALT 64 Alkaline Phosphatase 122 Total Creatine Kinase 1374 H Troponin I Total Protein 7.5 Albumin 3.2 L D Globulin 4.3 H Albumin/Globulin Ratio 0.8 L Lipase Urine Color Urine Clarity Urine pH Ur Specific [place] Urine Protein Urine Glucose (UA) Urine Ketones Urine Blood Urine Nitrate Urine Bilirubin Urine Urobilinogen Ur Leukocyte Esterase Urine RBC (Auto) Urine Microscopic WBC Ur Squamous Epith Cells Hyaline Casts Salicylates Urine Opiates Screen Urine Methadone Screen Acetaminophen Ur Barbiturates Screen Ur Phencyclidine Scrn Ur Amphetamines Screen U Benzodiazepines Scrn U Oth Cocaine Metabols U Cannabinoids Screen Alcohol, Quantitative Blood Type Blood Type Confirm Antibody Screen BBK History Checked 12/15/17 09:20 WBC RBC Hgb Hct MCV MCH MCHC RDW Plt Count MPV Neut % (Auto) Lymph % (Auto) [place] % (Auto) Eos % (Auto) Baso % (Auto) Neut # (Auto) Lymph # (Auto) [place] # (Auto) Eos # (Auto) Baso # (Auto) Total Counted Neutrophils % (Manual) Band Neutrophils % Lymphocytes % (Manual) Reactive Lymphs % Monocytes % (Manual) Eosinophils % (Manual) Basophils % (Manual) Metamyelocytes % Myelocytes % Promyelocytes % Blast Cells % Plasma Cell % (Manual) Nucleated RBC % Hypersegmented Polys Smudge Cells Toxic Granulation Dohle Bodies Armida Rods Platelet Estimate Plt Clumps, EDTA Large Platelets Giant Platelets RBC Morphology Polychromasia Hypochromasia (manual) Poikilocytosis (manual Basophilic Stippling Anisocytosis (manual) Microcytosis (manual) Macrocytosis (manual) Spherocytes Sickle Cells Target Cells Tear Drop Cells Ovalocytes Stomatocytes Helmet Cells Potts-[place]ogoll[place] Bodies Joni Cells Acanthocytes (Spur) Rouleaux Schistocytes PT INR APTT pCO2 pO2 HCO3 ABG pH ABG Total CO2 ABG O2 Saturation ABG O2 Content ABG Base Excess ABG Hemoglobin ABG Carboxyhemoglobin POC ABG HHb (Measured) ABG Methemoglobin ABG O2 Capacity Meño Test A-a O2 Difference Hgb O2 Saturation Vent Mode Mechanical Rate FiO2 Tidal Volume PEEP Sodium Potassium Chloride Carbon Dioxide Anion Gap BUN Creatinine Est GFR ( Amer) Est GFR (Non-Af Amer) Random Glucose Lactic Acid 2.0 Calcium Phosphorus Magnesium Total Bilirubin AST ALT Alkaline Phosphatase Total Creatine Kinase Troponin I Total Protein Albumin Globulin Albumin/Globulin Ratio Lipase Urine Color Urine Clarity Urine pH Ur Specific [place] Urine Protein Urine Glucose (UA) Urine Ketones Urine Blood Urine Nitrate Urine Bilirubin Urine Urobilinogen Ur Leukocyte Esterase Urine RBC (Auto) Urine Microscopic WBC Ur Squamous Epith Cells Hyaline Casts Salicylates Urine Opiates Screen Urine Methadone Screen Acetaminophen Ur Barbiturates Screen Ur Phencyclidine Scrn Ur Amphetamines Screen U Benzodiazepines Scrn U Oth Cocaine Metabols U Cannabinoids Screen Alcohol, Quantitative Blood Type Blood Type Confirm Antibody Screen BBK History Checked Radiology Interpretations (Free Text): See above Review of Systems - Review of Systems Systems not reviewed;Unavailable: Intubated Critical Care Progress Note - Ventilator Checklist Head of Bed 30 Degrees: Yes Daily Sedation Vacation: No (comatose) Daily Assessment of Readiness to Wean: No (comatose) Daily Spontaneous Breathing Trial: No (comatose) PUD Prophalyxis: Yes DVT Prophylaxis: Yes Oral Care with Chlorhexidine Gluconate {CHG}: Yes - Vent Settings MODE:: ASSIST CONTROL TIDAL VOLUME:: 500 RESP RATE:: 22 FIO2:: 60 PEEP:: 5 - Extremities/Vascular Does the Patient have a Central Venous Catheter?: No Insertion Site: Femoral Vein Does the Patient need a Central Venous Catheter?: Yes Does the Patient have a Plaza Catheter?: Yes Does the Patient need a Plaza Catheter?: Yes Catheter Insertion Criteria: Need for accurate measurement of output in critically ill patient - Prophylaxis GI Prophylaxis GI: PPI - Prophylaxis DVT Prophylaxis DVT: SCDs - Nutrition Nutrition: Nutrition Category Date Time Status NPO Diet [DIET] Diets 12/15/17 Breakfast Active
[2017-12-15] MEDS: Mannitol 12.5 gm/50 ml Inj IV SCH (16:17)
--- NOTE | 2017-12-15 16:20 | PCM.PROC ---
Procedures Attestation:: I certify that I have explained the specified Operation(s) or Procedure(s), risks, benefits and reasonable alternatives to the Patient and/or other person responsible. The opportunity was given to ask questions and all questions answered - Arterial Line Right Femoral Aseptic technique was employed throughout the procedure: Full sterile barriers ( mask, hair cover, sterile gown, sterile gloves), Full body sterile drape, Chloraprep Antiseptic: 2 minute prep for Femoral Time Out Performed: Yes Pt. placed on Pulse Ox Monitor: Yes Central Line Prep: Chlorhexidine-Alcohol Combination Local Anesthesia Used: Lidocaine 1% Ultrasound Used for Placement: No Gauge (Size): 20 gauge (6 inch angiocath) Technique Used: Guide Wire Technique Secured by: Suture Post procedure dressing: Clear vapor permeable, Chlorhexidine disc (Biopatch) Patient Tolerated Procedure: well Immediate Complications: none Additional Comments: Arterial Line placed under emergent conditions in ICU for titration of vasoactive medications and frequent ABGs. - Central Line Placement Right Femoral Triple Lumen Catheter Aseptic technique was employed throughout the procedure: Full sterile barriers ( mask, hair cover, sterile gown, sterile gloves), Full body sterile drape, Chloraprep Antiseptic: 2 minute prep for Femoral CVP Time Out Performed: Yes Pt. Placed on Pulse Ox Monitor: Yes Central Line Prep: Chlorhexidine-Alcohol Combination Local Anesthesia Used: Lidocaine 1% Ultrasound Used for Placement: No Central Line Lumen Inserted: triple Central Line Length: 20 cm Post Procedure: Sutured in Place, Good Blood Return, All Ports Aspirated, Flushed, Capped, Sterile Dressing Applied Secured by: Suture Post procedure dressing: Clear vapor permeable, Chlorhexidine disc (Biopatch) Post Procedure X-Ray: No Patient Tolerated Procedure: Well Immediate Complications: None (TLC placed under emergent conditions in ICU for vasoactive medication infusion.) Additional Comments: TLC placed under emergent conditions in ICu for infusion of vasoactive medications. Femoral site chosen due to existing coagulopathy and thrombocytopenia.
[2017-12-15] MEDS ORDERED: Labetalol 5mg/ml (4ml) IVP PRN (16:22)
[2017-12-15 16:36] LABS: ABG ALLEN TEST YES; ARTERIAL BLOOD GAS HCO3 28.2 mmol/L (21-28); ARTERIAL BLOOD GAS PCO2 36 mm/Hg (35-45); ARTERIAL BLOOD GAS PH 7.49 (7.35-7.45); ARTERIAL BLOOD GAS PO2 196 mm/Hg (80-100); ARTERIAL BLOOD GAS TCO2 28.5 mmol/L (22-28)
[2017-12-15] MEDS ORDERED: Desmopressin 4 mcg/ml Inj (10 ml) IV ONE (16:39)
[2017-12-15 17:48] LABS: INR 1.5 (0.9-1.2); PARTIAL THROMBOPLASTIN TIME 31.6 Seconds (25.6-37.1); PROTHROMBIN TIME 16.3 Seconds (9.8-13.1)
[2017-12-15 18:06] LABS: BLOOD UREA NITROGEN 9 mg/dl (9-20); CALCIUM 10.4 mg/dL (8.4-10.2); GFR AFRICAN-AMERICAN > 60; GFR NON-AFRICAN AMERICAN > 60
[2017-12-15] MEDS: Acetaminophen 650mg/20.3ml solution UD PO PRN (18:30)
[2017-12-15] MEDS ORDERED: Desmopressin 4 mcg/ml Inj (1 ml) IVP ONE (18:30)
--- NOTE | 2017-12-15 19:15 | CP.PCM.PN ---
Subjective - Date & Time of Evaluation Date of Evaluation: 12/15/17 Time of Evaluation: 11:00 - Subjective Subjective: Addendum to Dr Franklin's H&P: Pt was admitted this am and I Assumed care. Pt is intubated on Vent Responsive to painful stimuli Pupils about4-5mm sluggishly reactive to light + Babinski Repeat CT of the Brain done as rec by Dr Rush: Progressing herniation leftward and downward. Progressing bilateral acute infarcts. Progressing intercerebral edema and mass effect. Large right acute subdural hematoma -similar with large leftward midline shift similar to probably slightly slightly increased . Progressive increased intraventricular blood. Similar to slightly increased hydrocephalus. Interval increased subarachnoid blood Problems : 1. Large Subdural Hematoma with mass effect , herniation, SAH - discussed case with Dr Rush and Dr Stephens -Dr Rush -rec Hyperventilation, Mannitol, start Decadron and Keppra - Neurosurgery consulted- no Neurosurgical intervention - due to pt's low Platelet , coagulopathy, very high risk 2. Coagulopathy and Thrombocytopenia likely sec to Alcohol Abuse -transfuse FFP and Platelets -Vit K given 3. Central Diabetes Insipidus - pt has been urinating large vol - Sodium went up to 162 - IVF hydration with D5W 4. Hypokalemia - replace with KCl runs 5. Suspected Aspiration Pneumonia (POA) - Pt on IV Zosyn and Vanco 6. Acute Hypoxic Resp Failure (POA) -Intubated for Airway Protection- on Vent 7. Troponin Elevation sec to Demand Ischemia 8. Abn LFTs sec to Alcohol Abuse Poor Prognosis Next of kin is daughter who is out of town, was called to come Objective - Vital Signs/Intake and Output Vital Signs (last 24 hours): Temp Pulse Resp BP Pulse Ox 102 F H 98 H 18 139/83 98 12/15/17 18:30 12/15/17 16:00 12/15/17 08:00 12/15/17 16:00 12/15/17 16:00 - Medications Medications: Current Medications Acetaminophen (Tylenol 650mg/20.3ml Solution Ud) 650 mg PO Q6 PRN PRN Reason: Fever >100.4 F Last Admin: 12/15/17 18:30 Dose: 650 mg Dexamethasone (Decadron Inj) 10 mg IV Q12@0000,1200 [facility] Last Admin: 12/15/17 14:06 Dose: 10 mg Vancomycin HCl 1 gm/ Sodium (Chloride) 250 mls @ 250 mls/hr IVPB Q12H [facility] PRN Reason: Protocol Last Admin: 12/15/17 16:18 Dose: 250 mls/hr Piperacillin Sod/Tazobactam (Sod 3.375 gm/ Sodium Chloride) 100 mls @ 100 mls/ hr IVPB Q6 [facility] PRN Reason: Protocol Last Admin: 12/15/17 16:18 Dose: 100 mls/hr Levetiracetam 500 mg/ Sodium (Chloride) 105 mls @ 210 mls/hr IVPB Q12 [facility] Last Admin: 12/15/17 14:01 Dose: 210 mls/hr Dextrose (Dextrose 5% In Water 1000 Ml) 1,000 mls @ 150 mls/hr IV .Q6H40M [facility] Stop: 12/16/17 16:39 Last Admin: 12/15/17 18:16 Dose: 150 mls/hr Labetalol HCl (Trandate) 20 mg IVP Q3 PRN PRN Reason: Systolic Blood Pressure Mannitol (Mannitol) 25 gm IV Q8 [facility] Last Admin: 12/15/17 16:17 Dose: 25 gm Morphine Sulfate (Morphine) 2 mg IVP Q4H PRN PRN Reason: Pain, severe (8-10) Ondansetron HCl (Zofran Inj) 4 mg IVP Q6H PRN PRN Reason: Nausea/Vomiting Pantoprazole Sodium (Protonix Inj) 40 mg IVP DAILY [facility] Last Admin: 12/15/17 11:19 Dose: 40 mg - Labs Labs: 12/15/17 09:20 12/15/17 17:00 PT 16.3 Seconds (9.8-13.1) H 12/15/17 17:00 INR 1.5 (0.9-1.2) H 12/15/17 17:00 APTT 31.6 Seconds (25.6-37.1) 12/15/17 17:00
[2017-12-16] MEDS: Mannitol 12.5 gm/50 ml Inj IV SCH ×2 (00:43→10:59)
[2017-12-16] MEDS: Piperacillin/Tazobact 3.375 GM in Sodium Chloride 0.9% 100 ML IVPB SCH ×4 (04:31→21:04)
[2017-12-16 05:57] LABS: BASO % 0.1 % (0.0-2.0); EOS % 0.1 % (0.0-4.0); HEMOGLOBIN 12.7 g/dL (12.0-18.0); LYMPH # 0.6 K/uL (1.0-4.3); LYMPH % 5.9 % (20.0-40.0); MEAN CELL VOLUME 101.4 fl (80.0-94.0); MEAN CORPUSCULAR HEMOGLOBIN 33.9 pg (27.0-31.0); MEAN CORPUSCULAR HGB CONC 33.4 g/dL (33.0-37.0); MONO # 0.6 K/uL (0.0-0.8); MONO % 6.5 % (0.0-10.0); NEUT # 8.2 K/uL (1.8-7.0); NEUT % 87.4 % (50.0-75.0); RBC 3.75 Mil/uL (4.40-5.90); RED CELL DISTRIBUTION WIDTH 15.3 % (11.5-14.5); WHITE BLOOD COUNT 9.4 K/uL (4.8-10.8)
[2017-12-16 06:53] LABS: INR 1.7 (0.9-1.2); PARTIAL THROMBOPLASTIN TIME 30.3 Seconds (25.6-37.1); PROTHROMBIN TIME 19.6 Seconds (9.8-13.1)
[2017-12-16] MEDS ORDERED: Potassium Phosphate 30 MMOLE in Sodium Chloride 0.9% 250 ML IV ONE (06:56)
[2017-12-16 07:18] LABS: BLOOD UREA NITROGEN 12 mg/dl (9-20); GFR AFRICAN-AMERICAN > 60; GFR NON-AFRICAN AMERICAN > 60
[2017-12-16 07:19] LABS: CALCIUM 9.8 mg/dL (8.4-10.2)
[2017-12-16 08:01] LABS: ABG ALLEN TEST YES; ARTERIAL BLOOD GAS HCO3 26.2 mmol/L (21-28); ARTERIAL BLOOD GAS O2 SAT 99.7 % (95-98); ARTERIAL BLOOD GAS PCO2 30 mm/Hg (35-45); ARTERIAL BLOOD GAS PH 7.51 (7.35-7.45); ARTERIAL BLOOD GAS PO2 110 mm/Hg (80-100); ARTERIAL BLOOD GAS TCO2 24.8 mmol/L (22-28)
[2017-12-16 08:02] LABS: ABG ALLEN TEST YES; ARTERIAL BLOOD GAS HCO3 24.7 mmol/L (21-28); ARTERIAL BLOOD GAS O2 SAT 99.5 % (95-98); ARTERIAL BLOOD GAS PCO2 30 mm/Hg (35-45); ARTERIAL BLOOD GAS PH 7.48 (7.35-7.45); ARTERIAL BLOOD GAS PO2 111 mm/Hg (80-100); ARTERIAL BLOOD GAS TCO2 23.2 mmol/L (22-28)
[2017-12-16 09:03] LABS: MAGNESIUM 2.4 MG/DL (1.6-2.3)
--- NOTE | 2017-12-16 09:35 | CP.PCM.PN ---
Subjective - Date & Time of Evaluation Date of Evaluation: 12/16/17 Time of Evaluation: 13:00 - Subjective Subjective: Patient was seen and examined bedside. Intubated on MV PRVC/ AC mode, comatose with GCS 3 , no pupillary response , no gag reflex , no corneal reflex , breathing over the vent. On levophed drip for BP control Febrile with Tmax 102.2, tachycardic BP 116/72 HR 111 RR 26 MV PRVC AC mode 12/500/5/45 % with ABG 30/110/26/7.5 WBC 9 K Hgb 9.4 Plt 73 K Na 167 Ph 0.6 K 2.8 I/O 5914/7150 Very poor prognosis Objective - Vital Signs/Intake and Output Vital Signs (last 24 hours): Temp Pulse Resp BP Pulse Ox 97.6 F 97 H 26 H 99/63 L 96 12/16/17 04:00 12/16/17 08:00 12/16/17 08:00 12/16/17 08:00 12/16/17 08:00 Intake and Output: 12/16/17 12/16/17 06:59 18:59 Intake Total 3651 258 Output Total 900 Balance 2751 258 - Medications Medications: Current Medications Acetaminophen (Tylenol 650mg/20.3ml Solution Ud) 650 mg PO Q6 PRN PRN Reason: Fever >100.4 F Last Admin: 12/15/17 18:30 Dose: 650 mg Dexamethasone (Decadron Inj) 10 mg IV Q12@0000,1200 [facility] Last Admin: 12/16/17 00:34 Dose: 10 mg Vancomycin HCl 1 gm/ Sodium (Chloride) 250 mls @ 250 mls/hr IVPB Q12H [facility] PRN Reason: Protocol Last Admin: 12/16/17 02:07 Dose: 250 mls/hr Piperacillin Sod/Tazobactam (Sod 3.375 gm/ Sodium Chloride) 100 mls @ 100 mls/ hr IVPB Q6 [facility] PRN Reason: Protocol Last Admin: 12/16/17 04:31 Dose: 100 mls/hr Levetiracetam 500 mg/ Sodium (Chloride) 105 mls @ 210 mls/hr IVPB Q12 [facility] Last Admin: 12/15/17 21:41 Dose: 210 mls/hr Dextrose (Dextrose 5% In Water 1000 Ml) 1,000 mls @ 150 mls/hr IV .Q6H40M [facility] Stop: 12/16/17 16:39 Last Admin: 12/16/17 06:52 Dose: 150 mls/hr Norepinephrine Bitartrate 8 mg (/ Dextrose) 258 mls @ 4.83 mls/hr IV .Q24H ONE ; 2.5 MCG/MIN PRN Reason: Protocol Stop: 12/16/17 19:45 Last Titration: 12/16/17 08:19 Dose: 5 mcg/min, 9.67 mls/hr Potassium Phosphate 30 mmole/ (Sodium Chloride) 260 mls @ 65 mls/hr IV ONCE ONE Stop: 12/16/17 10:55 Last Admin: 12/16/17 08:09 Dose: 65 mls/hr Potassium Chloride (Potassium Cl 10meq/50ml Sterile Water) 50 mls @ 50 mls/hr IVPB Q1 [facility] Stop: 12/16/17 15:59 Labetalol HCl (Trandate) 20 mg IVP Q3 PRN PRN Reason: Systolic Blood Pressure Mannitol (Mannitol) 25 gm IV Q8 [facility] Last Admin: 12/16/17 00:43 Dose: 25 gm Morphine Sulfate (Morphine) 2 mg IVP Q4H PRN PRN Reason: Pain, severe (8-10) Ondansetron HCl (Zofran Inj) 4 mg IVP Q6H PRN PRN Reason: Nausea/Vomiting Pantoprazole Sodium (Protonix Inj) 40 mg IVP DAILY [facility] Last Admin: 12/15/17 11:19 Dose: 40 mg - Labs Labs: 12/16/17 04:28 12/16/17 04:28 PT 19.6 Seconds (9.8-13.1) H 12/16/17 04:28 INR 1.7 (0.9-1.2) H 12/16/17 04:28 APTT 30.3 Seconds (25.6-37.1) 12/16/17 04:28 - Constitutional Appears: Other (intubated on MV , not sedated ,not responsive ) - Head Exam Head Exam: ATRAUMATIC, NORMOCEPHALIC - Eye Exam Additional comments: pupils fixed and dilated with no pupillary reflex , no corneal reflex - ENT Exam ENT Exam: Mucous Membranes Dry - Neck Exam Neck Exam: Normal Inspection - Respiratory Exam Respiratory Exam: Clear to Ausculation Bilateral. absent: Rhonchi, Wheezes Additional comments: intubated - Cardiovascular Exam Cardiovascular Exam: Tachycardia, REGULAR RHYTHM, +S1, +S2. absent: JVD - GI/Abdominal Exam GI & Abdominal Exam: Soft, Normal Bowel Sounds. absent: Distended - Rectal Exam Rectal Exam: Deferred - Extremities Exam Extremities Exam: Normal Capillary Refill, Normal Inspection. absent: Pedal Edema - Neurological Exam Additional comments: not responsive to pain stimulus or verbal command pupils not responsive, fixed and dilated , no corneal reflex no gag reflex - Skin Skin Exam: Dry, Intact, Warm Assessment and Plan - Assessment and Plan (Free Text) Assessment: 52 yo male with a past medical history of chronic ETOH abuse ,back pain, brought to ER after being found unresponsive for unknown amount of time .The patient was last seen well at 1 PM on 12/14/2017. Found by girlfriend,on the ground unresponsive with vomitus all over himself . Intubated on route by EMS for airway protection due to persistent vomitus. CT scan of the brain and cervical spine was performed revealing a large right subdural hematoma with 2.2 cm shift to the left and mild hydrocephalus. Corpus callosal hemorrhage with interventricular extension. There is edema in the right anterior cerebral artery territory and lateral right temporal lobe. CXR showed evidence of pneumonia; likely aspiration. Patient admitted to ICU. At present he is comatose , intuabted on MV PRVC mode ,with GCS 3 with very poor prognosis, on Levophed and manitol drip.Has developed DI . 1. Comatose secondary to large subdural hematoma with mass effect , herniation and SAH Intubated on MV PRVC / Ac mode with GCS 3 on levophed and Manitol Repeat CT of the Brain showed Progressing herniation leftward and downward. Progressing bilateral acute infarcts. Progressing intercerebral edema and mass effect. Large right acute subdural hematoma -similar with large leftward midline shift similar to probably slightly slightly increased . Progressive increased intraventricular blood. Similar to slightly increased hydrocephalus. Interval increased subarachnoid blood Very poor prognosis Neurology and neurosurgery consulted Patient is not a surgical candidate as per neurosurgery due to coagulopathy and low Platelet count Continue manitol , Decadron and Keppra . waiting for next of kin daughter to come from [place] 2. Neurogenic Diabetic insipidus Na 165 Continue D5W 2 125 ml/hr DDAVP PRN 3.Suspected Aspiration Pneumonia on Vanco and Zosyn IV CXR today showed no infiltrate Continue vent management 4.Chronic ETOH abuse with Coagulopathy, Thrombocytopenia and transaminitis transfused FFP, Platelets and Vitamin K 5. Electrolyte abnormalities/ hypokalemia, hypophosphatemia replace with Kcl runs, Kphos 6. Acute Hypoxic Resp Failure (POA) Intubated for Airway Protection- on Vent 7. Troponin Elevation sec to Demand Ischemia 8. DVT prophylaxis SCD Patient has very poor prognosis
--- NOTE | 2017-12-16 10:00 | CP.PCM.PN ---
Subjective - Date & Time of Evaluation Date of Evaluation: 12/16/17 Time of Evaluation: 10:00 - Subjective Subjective: Mr. Terrazas was seen and examined at the bedside in ICU. He remains on mechanical ventilation on PRVC mode with no sedation. He does not have any gag, corneal reflexes and non-reactive pupillary reaction. GCS-3T. Currently he is on vasopressor (levophed) and mannitol drip.There was no untoward events overnight. Objective - Vital Signs/Intake and Output Vital Signs (last 24 hours): Temp Pulse Resp BP Pulse Ox 97.6 F 97 H 26 H 99/63 L 96 12/16/17 04:00 12/16/17 08:00 12/16/17 08:00 12/16/17 08:00 12/16/17 08:00 Intake and Output: 12/16/17 12/16/17 06:59 18:59 Intake Total 3651 258 Output Total 900 Balance 2751 258 - Medications Medications: Current Medications Acetaminophen (Tylenol 650mg/20.3ml Solution Ud) 650 mg PO Q6 PRN PRN Reason: Fever >100.4 F Last Admin: 12/15/17 18:30 Dose: 650 mg Dexamethasone (Decadron Inj) 10 mg IV Q12@0000,1200 [facility] Last Admin: 12/16/17 00:34 Dose: 10 mg Vancomycin HCl 1 gm/ Sodium (Chloride) 250 mls @ 250 mls/hr IVPB Q12H [facility] PRN Reason: Protocol Last Admin: 12/16/17 02:07 Dose: 250 mls/hr Piperacillin Sod/Tazobactam (Sod 3.375 gm/ Sodium Chloride) 100 mls @ 100 mls/ hr IVPB Q6 [facility] PRN Reason: Protocol Last Admin: 12/16/17 04:31 Dose: 100 mls/hr Levetiracetam 500 mg/ Sodium (Chloride) 105 mls @ 210 mls/hr IVPB Q12 [facility] Last Admin: 12/15/17 21:41 Dose: 210 mls/hr Dextrose (Dextrose 5% In Water 1000 Ml) 1,000 mls @ 150 mls/hr IV .Q6H40M [facility] Stop: 12/16/17 16:39 Last Admin: 12/16/17 06:52 Dose: 150 mls/hr Norepinephrine Bitartrate 8 mg (/ Dextrose) 258 mls @ 4.83 mls/hr IV .Q24H ONE ; 2.5 MCG/MIN PRN Reason: Protocol Stop: 12/16/17 19:45 Last Titration: 12/16/17 08:19 Dose: 5 mcg/min, 9.67 mls/hr Potassium Phosphate 30 mmole/ (Sodium Chloride) 260 mls @ 65 mls/hr IV ONCE ONE Stop: 12/16/17 10:55 Last Admin: 12/16/17 08:09 Dose: 65 mls/hr Potassium Chloride (Potassium Cl 10meq/50ml Sterile Water) 50 mls @ 50 mls/hr IVPB Q1 [facility] Stop: 12/16/17 15:59 Labetalol HCl (Trandate) 20 mg IVP Q3 PRN PRN Reason: Systolic Blood Pressure Mannitol (Mannitol) 25 gm IV Q8 [facility] Last Admin: 12/16/17 00:43 Dose: 25 gm Morphine Sulfate (Morphine) 2 mg IVP Q4H PRN PRN Reason: Pain, severe (8-10) Ondansetron HCl (Zofran Inj) 4 mg IVP Q6H PRN PRN Reason: Nausea/Vomiting Pantoprazole Sodium (Protonix Inj) 40 mg IVP DAILY [facility] Last Admin: 12/15/17 11:19 Dose: 40 mg - Labs Labs: 12/16/17 04:28 12/16/17 04:28 PT 19.6 Seconds (9.8-13.1) H 12/16/17 04:28 INR 1.7 (0.9-1.2) H 12/16/17 04:28 APTT 30.3 Seconds (25.6-37.1) 12/16/17 04:28 - Constitutional Appears: No Acute Distress - Head Exam Head Exam: NORMAL INSPECTION - Eye Exam Pupil Exam: Fixed Additional comments: 4 mm. - Neurological Exam Neuro motor strength exam: Left Upper Extremity: 0, Right Upper Extremity: 0, Left Lower Extremity: 0, Right Lower Extremity: 0 Additional comments: GCS 3T Assessment and Plan (1) Intracranial hemorrhage Assessment & Plan: Case discussed with Dr. Rush, continue all current regimen. Recommend repeat CT of the head without contrast today. Recommend palliative care. Status: Acute
[2017-12-16] MEDS: Potassium CL 10 MEQ/50 ML 50 ML IVPB SCH ×5 (10:51→21:05)
[2017-12-16] MEDS ORDERED: Potassium Chloride 20 mEq/15 ml LIQ UD NG ONE (10:58)
--- NOTE | 2017-12-16 12:22 | RAD ---
HISTORY: intubated COMPARISON: Chest radiograph dated 12/15/2017. FINDINGS: LUNGS: No active pulmonary disease. Right mid lung calcified granuloma redemonstrated. PLEURA: No significant pleural effusion identified, no pneumothorax apparent. CARDIOVASCULAR: Normal. OSSEOUS STRUCTURES: No significant abnormalities. VISUALIZED UPPER ABDOMEN: Normal. OTHER FINDINGS: Endotracheal tube tip now at the level of the kaylene. Interval placement of enteric tube with tip in the stomach. IMPRESSION: Interval placement of enteric tube in satisfactory position. No other significant interval change.
[2017-12-16 12:39] LABS: HEPATITIS B SURFACE AG Negative (NEGATIVE)
[2017-12-16 12:57] LABS: HEPATITIS C ANTIBODY NEGATIVE (NEGATIVE)
--- NOTE | 2017-12-16 13:48 | CP.CCUPN ---
CCU Subjective - Physician Review Subjective (Free Text): Remains comatose and unresponsive to painful stimulus, pupils 4 mm with no reactivity, midline position, absent corneals, absent gag, + carinal and + vent triggering, breathing 20-22 on AC 12. Had fever spike to 102.2F overnight, placed on cooling blanket. Other vitals and I/O's reviewed: negative 1.2L over last 24H. ROS: No other pertinent negs or positives on 10+ system review, otherwise unobtainable. PMSFH: All other Nursing and physician documentation reviewed to date; no new pertinent info noted relevant to current medical problems. CXR: ETT position ok above kaylene, R hilar and RLL interstitial changes. ( my interp.) IMPRESSION / MAJOR PROBLEMS NOW: 1. Catastrophic R SDH with SAH component, with R hemispheric edema and leftward shift, + Left ventricular blood and repeat CT Brain showing no new bleeding but loss of 3rd and 4th ventricle (my interp of repeat CT Brain imaging). 2. Centrally- mediated DI 3. Accelerated Hypertension 2 SDH / SAH 4. Coagulopathy and Thrombocytopenia 2 Alcoholism PLAN: 1. Maintain Neurochecks Q1-2h, HOB elevation, steroids, AED as per Neurology. Recd Platelet supplementation and attempts at correction of coagulopathy with FFP and Vit K. Repeat CT Brain ordered for today. 2. Mannitol stopped due to excessive hyperosmolar state. Interim hyperventilation stopped as well for now after 24H. 3. On D5W for correction of Hypernatremia due to central DI. DDAVP prn if urine output exceeds 200 ml/hr. 4. Wean Levophed if BP permits. 5. Empiric abx coverage for Aspiration pneumonia. 6. Health care proxy now is the daughter, await her arrival from [place]. Time spent with this patient did not overlap with any other provider's medical or critical care time. Additionally the code selected for the services rendered in this note includes the time spent: talking to the patients family, associated physicians and reviewing hospital data/results not listed here which extended to a total of 50 minutes. CCU Objective - Vital Signs / Intake & Output Vital Signs (Last 4 hours): Vital Signs Temp Pulse Resp BP Pulse Ox 12/16/17 12:00 98.1 F 100 H 18 116/72 98 12/16/17 11:00 99 H 19 111/69 97 12/16/17 10:00 100 H 19 111/69 98 Intake and Output (Last 8hrs): Intake & Output 12/15/17 12/16/17 12/16/17 22:59 06:59 14:59 Intake Total 3614 2300 608 Output Total 6250 900 Balance -2636 1400 608 Weight 190 lb 9.6 oz 190 lb 9.6 oz Intake: IV 600 1200 8 Intake, Piggyback 1150 500 400 Blood Product 1064 Free Water Flush 800 600 200 Output: Urine 6250 900 Urethral (Plaza) 6250 900 Other: # Bowel Movements 0 - Physical Exam Head: Positive for: Atraumatic, Normocephalic Pupils: Positive for: Non-Reactive (4 mm midline, no Dolls eyes, no corneals) Extroacular Muscles: Positive for: Other (fixed in mid-position). Negative for : Gaze Palsy Conjunctiva: Positive for: Normal. Negative for: Icteric Mouth: Positive for: Moist Mucous Membranes Neck: Positive for: Normal Range of Motion. Negative for: Meningeal Signs, JVD Respiratory/Chest: Positive for: Clear to Auscultation. Negative for: Accessory Muscle Use, Wheezes Cardiovascular: Positive for: Regular Rate and Rhythm, Tachycardic. Negative for: Murmurs, Rub Abdomen: Positive for: Normal Bowel Sounds. Negative for: Tenderness, Distention, Mass/Organomegaly Lower Extremity: Positive for: Normal Inspection, NORMAL PULSES. Negative for: Edema, CALF TENDERNESS, Cyanosis Neurological: Negative for: GCS=15 (GCS= 3T) Skin: Positive for: Warm, Dry. Negative for: Rashes - Medications Active Medications: Active Medications Generic Name Dose Route Start Last Admin Trade Name Freq PRN Reason Stop Dose Admin Acetaminophen 650 mg 12/15/17 16:00 12/15/17 18:30 Tylenol 650mg/20.3ml Solution Ud PO 650 mg Q6 PRN Administration Fever >100.4 F Dexamethasone 10 mg 12/15/17 12:00 12/16/17 00:34 Decadron Inj IV 10 mg Q12@0000,1200 PANFILO Administration Vancomycin HCl 1 gm/ Sodium 250 mls @ 250 mls/hr 12/15/17 14:45 12/16/17 02: 07 Chloride IVPB 250 mls/hr Q12H PANFILO Administration Protocol Piperacillin Sod/Tazobactam 100 mls @ 100 mls/hr 12/15/17 09:00 12/16/17 10: 15 Sod 3.375 gm/ Sodium Chloride IVPB 100 mls/hr Q6 PANFILO Administration Protocol Levetiracetam 500 mg/ Sodium 105 mls @ 210 mls/hr 12/15/17 12:00 12/15/17 21: 41 Chloride IVPB 210 mls/hr Q12 PANFILO Administration Dextrose 1,000 mls @ 150 mls/hr 12/15/17 16:45 12/16/17 06:52 Dextrose 5% In Water 1000 Ml IV 12/16/17 16:39 150 mls/hr .Q6H40M PANFILO Administration Norepinephrine Bitartrate 8 mg 258 mls @ 4.83 mls/hr 12/15/17 20:19 12/16/17 08:19 / Dextrose IV 12/16/17 19:45 5 mcg/min .Q24H ONE 9.67 mls/hr Protocol Titration 2.5 MCG/MIN Potassium Chloride 50 mls @ 50 mls/hr 12/16/17 10:00 12/16/17 10:51 Potassium Cl 10meq/50ml Sterile Water IVPB 12/16/17 15:59 50 mls/hr Q1 PANFILO Administration Labetalol HCl 20 mg 12/15/17 16:22 Trandate IVP Q3 PRN Systolic Blood Pressure Mannitol 25 gm 12/15/17 17:00 12/16/17 10:59 Mannitol IV Not Given Q8 PANFILO Morphine Sulfate 2 mg 12/15/17 02:30 Morphine IVP Q4H PRN Pain, severe (8-10) Ondansetron HCl 4 mg 12/15/17 02:30 Zofran Inj IVP Q6H PRN Nausea/Vomiting Pantoprazole Sodium 40 mg 12/15/17 09:00 12/16/17 10:59 Protonix Inj IVP 40 mg DAILY PANFILO Administration - Patient Studies Lab Studies: Microbiology Studies 12/15/17 01:18 Urine Culture - Final Urine No Growth (<1,000 CFU/ML) 12/15/17 01:11 Blood Culture - Preliminary Blood NO GROWTH AFTER 24 HOURS Lab Studies 12/16/17 12/16/17 12/16/17 Range/Units 07:50 07:50 07:37 WBC (4.8-10.8) K/uL RBC (4.40-5.90) Mil/uL Hgb (12.0-18.0) g/dL Hct (35.0-51.0) % MCV (80.0-94.0) fl MCH (27.0-31.0) pg MCHC (33.0-37.0) g/dL RDW (11.5-14.5) % Plt Count (130-400) K/uL MPV (7.2-11.7) fl Neut % (Auto) (50.0-75.0) % Lymph % (Auto) (20.0-40.0) % [place] % (Auto) (0.0-10.0) % Eos % (Auto) (0.0-4.0) % Baso % (Auto) (0.0-2.0) % Neut # (Auto) (1.8-7.0) K/uL Lymph # (Auto) (1.0-4.3) K/uL [place] # (Auto) (0.0-0.8) K/uL Eos # (Auto) (0.0-0.7) K/uL Baso # (Auto) (0.0-0.2) K/uL Total Counted Neutrophils % (Manual) Band Neutrophils % Lymphocytes % (Manual) Reactive Lymphs % Monocytes % (Manual) Eosinophils % (Manual) Basophils % (Manual) Metamyelocytes % Myelocytes % Promyelocytes % Blast Cells % Plasma Cell % (Manual) Nucleated RBC % Hypersegmented Polys Smudge Cells Toxic Granulation Dohle Bodies Armida Rods Platelet Estimate Plt Clumps, EDTA Large Platelets Giant Platelets RBC Morphology Polychromasia Hypochromasia (manual) Poikilocytosis (manual Basophilic Stippling Anisocytosis (manual) Microcytosis (manual) Macrocytosis (manual) Spherocytes Sickle Cells Target Cells Tear Drop Cells Ovalocytes Stomatocytes Helmet Cells Potts-Bradgate Bodies Joni Cells Acanthocytes (Spur) Rouleaux Schistocytes PT (9.8-13.1) Seconds INR (0.9-1.2) APTT (25.6-37.1) Seconds pCO2 30 L (35-45) mm/Hg pO2 110 H (80-100) mm/Hg HCO3 26.2 (21-28) mmol/L ABG pH 7.51 H (7.35-7.45) ABG Total CO2 24.8 (22-28) mmol/L ABG O2 Saturation 99.7 H (95-98) % ABG Base Excess 1.6 (-2.0-3.0) mmol/L Meño Test Yes ABG Potassium 3.4 L (3.6-5.2) mmol/L A-a O2 Difference 173.0 mm/Hg Sodium 162.0 H* (132-148) mmol/L Chloride 129.0 H (98-107) mmol/L Glucose 447 H* (75-110) mg/dL Lactate 1.9 (0.7-2.1) mmol/L Vent Mode Prvc/ac Mechanical Rate 26 FiO2 45.0 % Tidal Volume 500 PEEP 5 Crit Value Called To caroline Raymundo Crit Value Called By 203 Crit Value Read Back Y Blood Gas Notified Time 746 Potassium (3.6-5.0) MMOL/L Carbon Dioxide (22-30) mmol/L Anion Gap (10-20) BUN (9-20) mg/dl Creatinine (0.8-1.5) mg/dl Est GFR ( Amer) Est GFR (Non-Af Amer) Random Glucose (75-110) mg/dL Hemoglobin A1c (4.2-6.5) % Serum Osmolality 360 H (272-300) mosm/kg Lactic Acid (0.7-2.1) MMOL/L Calcium (8.4-10.2) mg/dL Phosphorus 0.6 L* (2.5-4.5) mg/dl Magnesium 2.4 H (1.6-2.3) MG/DL Troponin I (0.00-0.120) ng/mL Arterial Blood Potassium 3.4 L (3.6-5.2) mmol/L Hep Bs Antigen (NEGATIVE) Hepatitis C Antibody (NEGATIVE) HIV-1 Ab Rapid Screen (NON REAC) 12/16/17 12/16/17 12/16/17 Range/Units 04:54 04:28 04:28 WBC (4.8-10.8) K/uL RBC (4.40-5.90) Mil/uL Hgb (12.0-18.0) g/dL Hct (35.0-51.0) % MCV (80.0-94.0) fl MCH (27.0-31.0) pg MCHC (33.0-37.0) g/dL RDW (11.5-14.5) % Plt Count (130-400) K/uL MPV (7.2-11.7) fl Neut % (Auto) (50.0-75.0) % Lymph % (Auto) (20.0-40.0) % [place] % (Auto) (0.0-10.0) % Eos % (Auto) (0.0-4.0) % Baso % (Auto) (0.0-2.0) % Neut # (Auto) (1.8-7.0) K/uL Lymph # (Auto) (1.0-4.3) K/uL [place] # (Auto) (0.0-0.8) K/uL Eos # (Auto) (0.0-0.7) K/uL Baso # (Auto) (0.0-0.2) K/uL Total Counted Neutrophils % (Manual) Band Neutrophils % Lymphocytes % (Manual) Reactive Lymphs % Monocytes % (Manual) Eosinophils % (Manual) Basophils % (Manual) Metamyelocytes % Myelocytes % Promyelocytes % Blast Cells % Plasma Cell % (Manual) Nucleated RBC % Hypersegmented Polys Smudge Cells Toxic Granulation Dohle Bodies Armida Rods Platelet Estimate Plt Clumps, EDTA Large Platelets Giant Platelets RBC Morphology Polychromasia Hypochromasia (manual) Poikilocytosis (manual Basophilic Stippling Anisocytosis (manual) Microcytosis (manual) Macrocytosis (manual) Spherocytes Sickle Cells Target Cells Tear Drop Cells Ovalocytes Stomatocytes Helmet Cells Potts-Bradgate Bodies Joni Cells Acanthocytes (Spur) Rouleaux Schistocytes PT 19.6 H (9.8-13.1) Seconds INR 1.7 H (0.9-1.2) APTT 30.3 (25.6-37.1) Seconds pCO2 30 L (35-45) mm/Hg pO2 111 H (80-100) mm/Hg HCO3 24.7 (21-28) mmol/L ABG pH 7.48 H (7.35-7.45) ABG Total CO2 23.2 (22-28) mmol/L ABG O2 Saturation 99.5 H (95-98) % ABG Base Excess -0.3 (-2.0-3.0) mmol/L Meño Test Yes ABG Potassium 2.7 L (3.6-5.2) mmol/L A-a O2 Difference 172.0 mm/Hg Sodium 164.0 H* (132-148) mmol/L Chloride 127.0 H (98-107) mmol/L Glucose 401 H* D (75-110) mg/dL Lactate 2.0 (0.7-2.1) mmol/L Vent Mode Prvc ac Mechanical Rate 26 FiO2 45.0 % Tidal Volume 500 PEEP 5 Crit Value Called To Wilbur hu Crit Value Called By 292 Crit Value Read Back Y Blood Gas Notified Time 505 Potassium (3.6-5.0) MMOL/L Carbon Dioxide (22-30) mmol/L Anion Gap (10-20) BUN (9-20) mg/dl Creatinine (0.8-1.5) mg/dl Est GFR ( Amer) Est GFR (Non-Af Amer) Random Glucose (75-110) mg/dL Hemoglobin A1c 6.2 (4.2-6.5) % Serum Osmolality (272-300) mosm/kg Lactic Acid (0.7-2.1) MMOL/L Calcium (8.4-10.2) mg/dL Phosphorus (2.5-4.5) mg/dl Magnesium (1.6-2.3) MG/DL Troponin I (0.00-0.120) ng/mL Arterial Blood Potassium 2.7 L (3.6-5.2) mmol/L Hep Bs Antigen (NEGATIVE) Hepatitis C Antibody (NEGATIVE) HIV-1 Ab Rapid Screen (NON REAC) 12/16/17 12/16/17 12/16/17 Range/Units 04:28 04:28 04:28 WBC (4.8-10.8) K/uL RBC (4.40-5.90) Mil/uL Hgb (12.0-18.0) g/dL Hct (35.0-51.0) % MCV (80.0-94.0) fl MCH (27.0-31.0) pg MCHC (33.0-37.0) g/dL RDW (11.5-14.5) % Plt Count (130-400) K/uL MPV (7.2-11.7) fl Neut % (Auto) (50.0-75.0) % Lymph % (Auto) (20.0-40.0) % [place] % (Auto) (0.0-10.0) % Eos % (Auto) (0.0-4.0) % Baso % (Auto) (0.0-2.0) % Neut # (Auto) (1.8-7.0) K/uL Lymph # (Auto) (1.0-4.3) K/uL [place] # (Auto) (0.0-0.8) K/uL Eos # (Auto) (0.0-0.7) K/uL Baso # (Auto) (0.0-0.2) K/uL Total Counted Neutrophils % (Manual) Band Neutrophils % Lymphocytes % (Manual) Reactive Lymphs % Monocytes % (Manual) Eosinophils % (Manual) Basophils % (Manual) Metamyelocytes % Myelocytes % Promyelocytes % Blast Cells % Plasma Cell % (Manual) Nucleated RBC % Hypersegmented Polys Smudge Cells Toxic Granulation Dohle Bodies [place] Rods Platelet Estimate Plt Clumps, EDTA Large Platelets Giant Platelets RBC Morphology Polychromasia Hypochromasia (manual) Poikilocytosis (manual Basophilic Stippling Anisocytosis (manual) Microcytosis (manual) Macrocytosis (manual) Spherocytes Sickle Cells Target Cells Tear Drop Cells Ovalocytes Stomatocytes Helmet Cells Potts-Bradgate Bodies Joni Cells Acanthocytes (Spur) Rouleaux Schistocytes PT (9.8-13.1) Seconds INR (0.9-1.2) APTT (25.6-37.1) Seconds pCO2 (35-45) mm/Hg pO2 (80-100) mm/Hg HCO3 (21-28) mmol/L ABG pH (7.35-7.45) ABG Total CO2 (22-28) mmol/L ABG O2 Saturation (95-98) % ABG Base Excess (-2.0-3.0) mmol/L Meño Test ABG Potassium (3.6-5.2) mmol/L A-a O2 Difference mm/Hg Sodium 167 H* (132-148) mmol/L Chloride 132 H (98-107) mmol/L Glucose (75-110) mg/dL Lactate (0.7-2.1) mmol/L Vent Mode Mechanical Rate FiO2 % Tidal Volume PEEP Crit Value Called To Crit Value Called By Crit Value Read Back Blood Gas Notified Time Potassium 2.8 L (3.6-5.0) MMOL/L Carbon Dioxide 24 (22-30) mmol/L Anion Gap 14 (10-20) BUN 12 (9-20) mg/dl Creatinine 0.9 (0.8-1.5) mg/dl Est GFR ( Amer) > 60 Est GFR (Non-Af Amer) > 60 Random Glucose 394 H (75-110) mg/dL Hemoglobin A1c (4.2-6.5) % Serum Osmolality (272-300) mosm/kg Lactic Acid 1.9 (0.7-2.1) MMOL/L Calcium 9.8 (8.4-10.2) mg/dL Phosphorus (2.5-4.5) mg/dl Magnesium (1.6-2.3) MG/DL Troponin I (0.00-0.120) ng/mL Arterial Blood Potassium (3.6-5.2) mmol/L Hep Bs Antigen Negative (NEGATIVE) Hepatitis C Antibody Negative (NEGATIVE) HIV-1 Ab Rapid Screen Non reactive (NON REAC) 12/16/17 12/15/17 12/15/17 Range/Units 04:28 17:00 17:00 WBC 9.4 (4.8-10.8) K/uL RBC 3.75 L (4.40-5.90) Mil/uL Hgb 12.7 (12.0-18.0) g/dL Hct 38.0 (35.0-51.0) % MCV 101.4 H (80.0-94.0) fl MCH 33.9 H (27.0-31.0) pg MCHC 33.4 (33.0-37.0) g/dL RDW 15.3 H (11.5-14.5) % Plt Count 73 L D (130-400) K/uL MPV 9.0 (7.2-11.7) fl Neut % (Auto) 87.4 H (50.0-75.0) % Lymph % (Auto) 5.9 L (20.0-40.0) % [place] % (Auto) 6.5 (0.0-10.0) % Eos % (Auto) 0.1 (0.0-4.0) % Baso % (Auto) 0.1 (0.0-2.0) % Neut # (Auto) 8.2 H (1.8-7.0) K/uL Lymph # (Auto) 0.6 L (1.0-4.3) K/uL [place] # (Auto) 0.6 (0.0-0.8) K/uL Eos # (Auto) 0.0 (0.0-0.7) K/uL Baso # (Auto) 0.0 (0.0-0.2) K/uL Total Counted Neutrophils % (Manual) Band Neutrophils % Lymphocytes % (Manual) Reactive Lymphs % Monocytes % (Manual) Eosinophils % (Manual) Basophils % (Manual) Metamyelocytes % Myelocytes % Promyelocytes % Blast Cells % Plasma Cell % (Manual) Nucleated RBC % Hypersegmented Polys Smudge Cells Toxic Granulation Dohle Bodies Armida Rods Platelet Estimate Plt Clumps, EDTA Large Platelets Giant Platelets RBC Morphology Polychromasia Hypochromasia (manual) Poikilocytosis (manual Basophilic Stippling Anisocytosis (manual) Microcytosis (manual) Macrocytosis (manual) Spherocytes Sickle Cells Target Cells Tear Drop Cells Ovalocytes Stomatocytes Helmet Cells Potts-Bradgate Bodies Joni Cells Acanthocytes (Spur) Rouleaux Schistocytes PT (9.8-13.1) Seconds INR (0.9-1.2) APTT (25.6-37.1) Seconds pCO2 (35-45) mm/Hg pO2 (80-100) mm/Hg HCO3 (21-28) mmol/L ABG pH (7.35-7.45) ABG Total CO2 (22-28) mmol/L ABG O2 Saturation (95-98) % ABG Base Excess (-2.0-3.0) mmol/L Meño Test ABG Potassium (3.6-5.2) mmol/L A-a O2 Difference mm/Hg Sodium 177 H* (132-148) mmol/L Chloride 136 H (98-107) mmol/L Glucose (75-110) mg/dL Lactate (0.7-2.1) mmol/L Vent Mode Mechanical Rate FiO2 % Tidal Volume PEEP Crit Value Called To Crit Value Called By Crit Value Read Back Blood Gas Notified Time Potassium 4.3 (3.6-5.0) MMOL/L Carbon Dioxide 29 (22-30) mmol/L Anion Gap 16 (10-20) BUN 9 (9-20) mg/dl Creatinine 1.0 (0.8-1.5) mg/dl Est GFR ( Amer) > 60 Est GFR (Non-Af Amer) > 60 Random Glucose 202 H (75-110) mg/dL Hemoglobin A1c (4.2-6.5) % Serum Osmolality (272-300) mosm/kg Lactic Acid (0.7-2.1) MMOL/L Calcium 10.4 H (8.4-10.2) mg/dL Phosphorus (2.5-4.5) mg/dl Magnesium (1.6-2.3) MG/DL Troponin I 0.6440 H* (0.00-0.120) ng/mL Arterial Blood Potassium (3.6-5.2) mmol/L Hep Bs Antigen (NEGATIVE) Hepatitis C Antibody (NEGATIVE) HIV-1 Ab Rapid Screen (NON REAC) 12/15/17 12/15/17 12/15/17 Range/Units 17:00 16:33 09:20 WBC (4.8-10.8) K/uL RBC (4.40-5.90) Mil/uL Hgb (12.0-18.0) g/dL Hct (35.0-51.0) % MCV (80.0-94.0) fl MCH (27.0-31.0) pg MCHC (33.0-37.0) g/dL RDW (11.5-14.5) % Plt Count (130-400) K/uL MPV (7.2-11.7) fl Neut % (Auto) (50.0-75.0) % Lymph % (Auto) (20.0-40.0) % [place] % (Auto) (0.0-10.0) % Eos % (Auto) (0.0-4.0) % Baso % (Auto) (0.0-2.0) % Neut # (Auto) (1.8-7.0) K/uL Lymph # (Auto) (1.0-4.3) K/uL [place] # (Auto) (0.0-0.8) K/uL Eos # (Auto) (0.0-0.7) K/uL Baso # (Auto) (0.0-0.2) K/uL Total Counted Cancelled Neutrophils % (Manual) Cancelled Band Neutrophils % Cancelled Lymphocytes % (Manual) Cancelled Reactive Lymphs % Cancelled Monocytes % (Manual) Cancelled Eosinophils % (Manual) Cancelled Basophils % (Manual) Cancelled Metamyelocytes % Cancelled Myelocytes % Cancelled Promyelocytes % Cancelled Blast Cells % Cancelled Plasma Cell % (Manual) Cancelled Nucleated RBC % Cancelled Hypersegmented Polys Cancelled Smudge Cells Cancelled Toxic Granulation Cancelled Dohle Bodies Cancelled Armida Rods Cancelled Platelet Estimate Cancelled Plt Clumps, EDTA Cancelled Large Platelets Cancelled Giant Platelets Cancelled RBC Morphology Cancelled Polychromasia Cancelled Hypochromasia (manual) Cancelled Poikilocytosis (manual Cancelled Basophilic Stippling Cancelled Anisocytosis (manual) Cancelled Microcytosis (manual) Cancelled Macrocytosis (manual) Cancelled Spherocytes Cancelled Sickle Cells Cancelled Target Cells Cancelled Tear Drop Cells Cancelled Ovalocytes Cancelled Stomatocytes Cancelled Helmet Cells Cancelled Potts-Bradgate Bodies Cancelled [place] Cells Cancelled Acanthocytes (Spur) Cancelled Rouleaux Cancelled Schistocytes Cancelled PT 16.3 H (9.8-13.1) Seconds INR 1.5 H (0.9-1.2) APTT 31.6 (25.6-37.1) Seconds pCO2 36 (35-45) mm/Hg pO2 196 H (80-100) mm/Hg HCO3 28.2 H (21-28) mmol/L ABG pH 7.49 H (7.35-7.45) ABG Total CO2 28.5 H (22-28) mmol/L ABG O2 Saturation 100.0 H (95-98) % ABG Base Excess 4.1 H (-2.0-3.0) mmol/L Meño Test Yes ABG Potassium 4.1 (3.6-5.2) mmol/L A-a O2 Difference 187.0 mm/Hg Sodium 172.0 H* (132-148) mmol/L Chloride 139.0 H (98-107) mmol/L Glucose 198 H (75-110) mg/dL Lactate 1.7 (0.7-2.1) mmol/L Vent Mode Prvc/ac Mechanical Rate 22 FiO2 60.0 % Tidal Volume 500 PEEP 5 Crit Value Called To Wilbur howard Crit Value Called By 15 Crit Value Read Back Y Blood Gas Notified Time 1636 Potassium (3.6-5.0) MMOL/L Carbon Dioxide (22-30) mmol/L Anion Gap (10-20) BUN (9-20) mg/dl Creatinine (0.8-1.5) mg/dl Est GFR ( Amer) Est GFR (Non-Af Amer) Random Glucose (75-110) mg/dL Hemoglobin A1c (4.2-6.5) % Serum Osmolality (272-300) mosm/kg Lactic Acid (0.7-2.1) MMOL/L Calcium (8.4-10.2) mg/dL Phosphorus (2.5-4.5) mg/dl Magnesium (1.6-2.3) MG/DL Troponin I (0.00-0.120) ng/mL Arterial Blood Potassium 4.1 (3.6-5.2) mmol/L Hep Bs Antigen (NEGATIVE) Hepatitis C Antibody (NEGATIVE) HIV-1 Ab Rapid Screen (NON REAC) Laboratory Results - last 24 hr 12/15/17 12/15/17 12/15/17 09:20 16:33 17:00 WBC RBC Hgb Hct MCV MCH MCHC RDW Plt Count MPV Neut % (Auto) Lymph % (Auto) [place] % (Auto) Eos % (Auto) Baso % (Auto) Neut # (Auto) Lymph # (Auto) [place] # (Auto) Eos # (Auto) Baso # (Auto) Total Counted Cancelled Neutrophils % (Manual) Cancelled Band Neutrophils % Cancelled Lymphocytes % (Manual) Cancelled Reactive Lymphs % Cancelled Monocytes % (Manual) Cancelled Eosinophils % (Manual) Cancelled Basophils % (Manual) Cancelled Metamyelocytes % Cancelled Myelocytes % Cancelled Promyelocytes % Cancelled Blast Cells % Cancelled Plasma Cell % (Manual) Cancelled Nucleated RBC % Cancelled Hypersegmented Polys Cancelled Smudge Cells Cancelled Toxic Granulation Cancelled Dohle Bodies Cancelled Armida Rods Cancelled Platelet Estimate Cancelled Plt Clumps, EDTA Cancelled Large Platelets Cancelled Giant Platelets Cancelled RBC Morphology Cancelled Polychromasia Cancelled Hypochromasia (manual) Cancelled Poikilocytosis (manual Cancelled Basophilic Stippling Cancelled Anisocytosis (manual) Cancelled Microcytosis (manual) Cancelled Macrocytosis (manual) Cancelled Spherocytes Cancelled Sickle Cells Cancelled Target Cells Cancelled Tear Drop Cells Cancelled Ovalocytes Cancelled Stomatocytes Cancelled Helmet Cells Cancelled Potts-Bradgate Bodies Cancelled Joni Cells Cancelled Acanthocytes (Spur) Cancelled Rouleaux Cancelled Schistocytes Cancelled PT 16.3 H INR 1.5 H APTT 31.6 pCO2 36 pO2 196 H HCO3 28.2 H ABG pH 7.49 H ABG Total CO2 28.5 H ABG O2 Saturation 100.0 H ABG Base Excess 4.1 H Meño Test Yes ABG Potassium 4.1 A-a O2 Difference 187.0 Sodium 172.0 H* Chloride 139.0 H Glucose 198 H Lactate 1.7 Vent Mode Prvc/ac Mechanical Rate 22 FiO2 60.0 Tidal Volume 500 PEEP 5 Crit Value Called To Wilbur howard Crit Value Called By 15 Crit Value Read Back Y Blood Gas Notified Time 1636 Potassium Carbon Dioxide Anion Gap BUN Creatinine Est GFR ( Amer) Est GFR (Non-Af Amer) Random Glucose Hemoglobin A1c Serum Osmolality Lactic Acid Calcium Phosphorus Magnesium Troponin I Arterial Blood Potassium 4.1 Hep Bs Antigen Hepatitis C Antibody HIV-1 Ab Rapid Screen 12/15/17 12/15/17 12/16/17 17:00 17:00 04:28 WBC 9.4 RBC 3.75 L Hgb 12.7 Hct 38.0 MCV 101.4 H MCH 33.9 H MCHC 33.4 RDW 15.3 H Plt Count 73 L D MPV 9.0 Neut % (Auto) 87.4 H Lymph % (Auto) 5.9 L [place] % (Auto) 6.5 Eos % (Auto) 0.1 Baso % (Auto) 0.1 Neut # (Auto) 8.2 H Lymph # (Auto) 0.6 L [place] # (Auto) 0.6 Eos # (Auto) 0.0 Baso # (Auto) 0.0 Total Counted Neutrophils % (Manual) Band Neutrophils % Lymphocytes % (Manual) Reactive Lymphs % Monocytes % (Manual) Eosinophils % (Manual) Basophils % (Manual) Metamyelocytes % Myelocytes % Promyelocytes % Blast Cells % Plasma Cell % (Manual) Nucleated RBC % Hypersegmented Polys Smudge Cells Toxic Granulation Dohle Bodies Armida Rods Platelet Estimate Plt Clumps, EDTA Large Platelets Giant Platelets RBC Morphology Polychromasia Hypochromasia (manual) Poikilocytosis (manual Basophilic Stippling Anisocytosis (manual) Microcytosis (manual) Macrocytosis (manual) Spherocytes Sickle Cells Target Cells Tear Drop Cells Ovalocytes Stomatocytes Helmet Cells Potts-Bradgate Bodies Joni Cells Acanthocytes (Spur) Rouleaux Schistocytes PT INR APTT pCO2 pO2 HCO3 ABG pH ABG Total CO2 ABG O2 Saturation ABG Base Excess Meño Test ABG Potassium A-a O2 Difference Sodium 177 H* Chloride 136 H Glucose Lactate Vent Mode Mechanical Rate FiO2 Tidal Volume PEEP Crit Value Called To Crit Value Called By Crit Value Read Back Blood Gas Notified Time Potassium 4.3 Carbon Dioxide 29 Anion Gap 16 BUN 9 Creatinine 1.0 Est GFR ( Amer) > 60 Est GFR (Non-Af Amer) > 60 Random Glucose 202 H Hemoglobin A1c Serum Osmolality Lactic Acid Calcium 10.4 H Phosphorus Magnesium Troponin I 0.6440 H* Arterial Blood Potassium Hep Bs Antigen Hepatitis C Antibody HIV-1 Ab Rapid Screen 12/16/17 12/16/17 12/16/17 04:28 04:28 04:28 WBC RBC Hgb Hct MCV MCH MCHC RDW Plt Count MPV Neut % (Auto) Lymph % (Auto) [place] % (Auto) Eos % (Auto) Baso % (Auto) Neut # (Auto) Lymph # (Auto) [place] # (Auto) Eos # (Auto) Baso # (Auto) Total Counted Neutrophils % (Manual) Band Neutrophils % Lymphocytes % (Manual) Reactive Lymphs % Monocytes % (Manual) Eosinophils % (Manual) Basophils % (Manual) Metamyelocytes % Myelocytes % Promyelocytes % Blast Cells % Plasma Cell % (Manual) Nucleated RBC % Hypersegmented Polys Smudge Cells Toxic Granulation Dohle Bodies Armida Rods Platelet Estimate Plt Clumps, EDTA Large Platelets Giant Platelets RBC Morphology Polychromasia Hypochromasia (manual) Poikilocytosis (manual Basophilic Stippling Anisocytosis (manual) Microcytosis (manual) Macrocytosis (manual) Spherocytes Sickle Cells Target Cells Tear Drop Cells Ovalocytes Stomatocytes Helmet Cells Potts-[place] Bodies Joni Cells Acanthocytes (Spur) Rouleaux Schistocytes PT INR APTT pCO2 pO2 HCO3 ABG pH ABG Total CO2 ABG O2 Saturation ABG Base Excess Meño Test ABG Potassium A-a O2 Difference Sodium 167 H* Chloride 132 H Glucose Lactate Vent Mode Mechanical Rate FiO2 Tidal Volume PEEP Crit Value Called To Crit Value Called By Crit Value Read Back Blood Gas Notified Time Potassium 2.8 L Carbon Dioxide 24 Anion Gap 14 BUN 12 Creatinine 0.9 Est GFR ( Amer) > 60 Est GFR (Non-Af Amer) > 60 Random Glucose 394 H Hemoglobin A1c Serum Osmolality Lactic Acid 1.9 Calcium 9.8 Phosphorus Magnesium Troponin I Arterial Blood Potassium Hep Bs Antigen Negative Hepatitis C Antibody Negative HIV-1 Ab Rapid Screen Non reactive 12/16/17 12/16/17 12/16/17 04:28 04:28 04:54 WBC RBC Hgb Hct MCV MCH MCHC RDW Plt Count MPV Neut % (Auto) Lymph % (Auto) [place] % (Auto) Eos % (Auto) Baso % (Auto) Neut # (Auto) Lymph # (Auto) [place] # (Auto) Eos # (Auto) Baso # (Auto) Total Counted Neutrophils % (Manual) Band Neutrophils % Lymphocytes % (Manual) Reactive Lymphs % Monocytes % (Manual) Eosinophils % (Manual) Basophils % (Manual) Metamyelocytes % Myelocytes % Promyelocytes % Blast Cells % Plasma Cell % (Manual) Nucleated RBC % Hypersegmented Polys Smudge Cells Toxic Granulation Dohle Bodies Armida Rods Platelet Estimate Plt Clumps, EDTA Large Platelets Giant Platelets RBC Morphology Polychromasia Hypochromasia (manual) Poikilocytosis (manual Basophilic Stippling Anisocytosis (manual) Microcytosis (manual) Macrocytosis (manual) Spherocytes Sickle Cells Target Cells Tear Drop Cells Ovalocytes Stomatocytes Helmet Cells Potts-Bradgate Bodies Joni Cells Acanthocytes (Spur) Rouleaux Schistocytes PT 19.6 H INR 1.7 H APTT 30.3 pCO2 30 L pO2 111 H HCO3 24.7 ABG pH 7.48 H ABG Total CO2 23.2 ABG O2 Saturation 99.5 H ABG Base Excess -0.3 Meño Test Yes ABG Potassium 2.7 L A-a O2 Difference 172.0 Sodium 164.0 H* Chloride 127.0 H Glucose 401 H* D Lactate 2.0 Vent Mode Prvc ac Mechanical Rate 26 FiO2 45.0 Tidal Volume 500 PEEP 5 Crit Value Called To Wilbur hu Crit Value Called By Anita Crit Value Read Back Y Blood Gas Notified Time 505 Potassium Carbon Dioxide Anion Gap BUN Creatinine Est GFR ( Amer) Est GFR (Non-Af Amer) Random Glucose Hemoglobin A1c 6.2 Serum Osmolality Lactic Acid Calcium Phosphorus Magnesium Troponin I Arterial Blood Potassium 2.7 L Hep Bs Antigen Hepatitis C Antibody HIV-1 Ab Rapid Screen 12/16/17 12/16/17 12/16/17 07:37 07:50 07:50 WBC RBC Hgb Hct MCV MCH MCHC RDW Plt Count MPV Neut % (Auto) Lymph % (Auto) [place] % (Auto) Eos % (Auto) Baso % (Auto) Neut # (Auto) Lymph # (Auto) [place] # (Auto) Eos # (Auto) Baso # (Auto) Total Counted Neutrophils % (Manual) Band Neutrophils % Lymphocytes % (Manual) Reactive Lymphs % Monocytes % (Manual) Eosinophils % (Manual) Basophils % (Manual) Metamyelocytes % Myelocytes % Promyelocytes % Blast Cells % Plasma Cell % (Manual) Nucleated RBC % Hypersegmented Polys Smudge Cells Toxic Granulation Dohle Bodies Armida Rods Platelet Estimate Plt Clumps, EDTA Large Platelets Giant Platelets RBC Morphology Polychromasia Hypochromasia (manual) Poikilocytosis (manual Basophilic Stippling Anisocytosis (manual) Microcytosis (manual) Macrocytosis (manual) Spherocytes Sickle Cells Target Cells Tear Drop Cells Ovalocytes Stomatocytes Helmet Cells Potts-Bradgate Bodies Joni Cells Acanthocytes (Spur) Rouleaux Schistocytes PT INR APTT pCO2 30 L pO2 110 H HCO3 26.2 ABG pH 7.51 H ABG Total CO2 24.8 ABG O2 Saturation 99.7 H ABG Base Excess 1.6 Meño Test Yes ABG Potassium 3.4 L A-a O2 Difference 173.0 Sodium 162.0 H* Chloride 129.0 H Glucose 447 H* Lactate 1.9 Vent Mode Prvc/ac Mechanical Rate 26 FiO2 45.0 Tidal Volume 500 PEEP 5 Crit Value Called To caroline Raymundo Crit Value Called By 203 Crit Value Read Back Y Blood Gas Notified Time 746 Potassium Carbon Dioxide Anion Gap BUN Creatinine Est GFR ( Amer) Est GFR (Non-Af Amer) Random Glucose Hemoglobin A1c Serum Osmolality 360 H Lactic Acid Calcium Phosphorus 0.6 L* Magnesium 2.4 H Troponin I Arterial Blood Potassium 3.4 L Hep Bs Antigen Hepatitis C Antibody HIV-1 Ab Rapid Screen Review of Systems - Review of Systems Systems not reviewed;Unavailable: Altered Mental Status Critical Care Progress Note - Ventilator Checklist Head of Bed 30 Degrees: Yes Daily Sedation Vacation: No (comatose) Daily Assessment of Readiness to Wean: No (comatose) Daily Spontaneous Breathing Trial: No (comatose) PUD Prophalyxis: Yes DVT Prophylaxis: Yes Oral Care with Chlorhexidine Gluconate {CHG}: Yes - Vent Settings TIDAL VOLUME:: 500 RESP RATE:: 12 FIO2:: 45 PEEP:: 5 - Extremities/Vascular Does the Patient have a Central Venous Catheter?: Yes Insertion Site: Femoral Vein Does the Patient need a Central Venous Catheter?: Yes Does the Patient have a Plaza Catheter?: Yes Does the Patient need a Plaza Catheter?: Yes Catheter Insertion Criteria: Need for accurate measurement of output in critically ill patient - Prophylaxis GI Prophylaxis GI: PPI - Prophylaxis DVT Prophylaxis DVT: SCDs - Nutrition Nutrition: Nutrition Category Date Time Status NPO Diet [DIET] Diets 12/15/17 Breakfast Active
[2017-12-16 15:17] LABS: ALB/GLOB RATIO 0.8 (1.0-2.1); ALBUMIN 3.5 g/dL (3.5-5.0); ALT/SGPT 112 U/L (21-72); AST/SGOT 244 U/L (17-59); BLOOD UREA NITROGEN 9 mg/dl (9-20); CALCIUM 8.9 mg/dL (8.4-10.2); GFR AFRICAN-AMERICAN > 60; GFR NON-AFRICAN AMERICAN > 60
--- NOTE | 2017-12-16 15:22 | CT ---
PROCEDURE: CT HEAD WITHOUT CONTRAST. HISTORY: subdural hemorrhage COMPARISON: 12/15/2008 TECHNIQUE: Axial computed tomography images were obtained through the head/brain without intravenous contrast. Coronal and sagittal reconstructed images. Radiation dose: Total exam DLP = 839.62 mGy-cm. This CT exam was performed using one or more of the following dose reduction techniques: Automated exposure control, adjustment of the mA and/or kV according to patient size, and/or use of iterative reconstruction technique. FINDINGS: HEMORRHAGE: Acute subdural hematoma on the right is stable. The degree of subarachnoid hemorrhage is progressive. Progressive acute hemorrhage within the brain stem identified. BRAIN: Effacement of cortical sulci, brain edema has increased. The degree of midline shift is stable, 2.47 cm VENTRICLES: Effacement of lateral ventricles has increased. Intraventricular hemorrhage identified on prior studies is approximately stable. CALVARIUM: Unremarkable. PARANASAL SINUSES: Unremarkable as visualized. No significant inflammatory changes. MASTOID AIR CELLS: Unremarkable as visualized. No inflammatory changes. OTHER FINDINGS: None. IMPRESSION: 1. Progression of brain edema and herniation. 2. Progression of brainstem hemorrhage. 3. Stable acute right subdural hemorrhage. 4. Stable midline shift.
[2017-12-16] MEDS: levETIRAcetam 500 MG in Sodium Chloride 0.9% 100 ML IVPB SCH ×2 (16:50→21:04)
[2017-12-16] MEDS: Insulin Regular 100 units/ml SC SCH (22:09)
[2017-12-17] MEDS: levETIRAcetam 500 MG in Sodium Chloride 0.9% 100 ML IVPB SCH ×2 (04:50→18:01)
[2017-12-17 05:19] LABS: MEAN CELL VOLUME 103.9 fl (80.0-94.0); MEAN CORPUSCULAR HEMOGLOBIN 33.6 pg (27.0-31.0); MEAN CORPUSCULAR HGB CONC 32.3 g/dL (33.0-37.0); RBC 4.18 Mil/uL (4.40-5.90); WHITE BLOOD COUNT 15.7 K/uL (4.8-10.8)
[2017-12-17] MEDS: Piperacillin/Tazobact 3.375 GM in Sodium Chloride 0.9% 100 ML IVPB SCH ×4 (05:46→21:58)
[2017-12-17 06:08] LABS: ABG ALLEN TEST YES; ARTERIAL BLOOD GAS HCO3 24.2 mmol/L (21-28); ARTERIAL BLOOD GAS HEMOGLOBIN 14.8 g/dL (11.7-17.4); ARTERIAL BLOOD GAS O2 CAPACITY 20.2 mL/dL (16-24); ARTERIAL BLOOD GAS O2 CONTENT 20.1 ML/dL (15-23); ARTERIAL BLOOD GAS O2 SAT 99.5 % (95-98); ARTERIAL BLOOD GAS PCO2 41 mm/Hg (35-45); ARTERIAL BLOOD GAS PH 7.38 (7.35-7.45); ARTERIAL BLOOD GAS PO2 103 mm/Hg (80-100); ARTERIAL BLOOD GAS TCO2 25.6 mmol/L (22-28)
[2017-12-17 06:08] LABS: ALB/GLOB RATIO 0.8 (1.0-2.1); ALBUMIN 3.8 g/dL (3.5-5.0); ALT/SGPT 135 U/L (21-72); AST/SGOT 246 U/L (17-59); BLOOD UREA NITROGEN 13 mg/dl (9-20); CALCIUM 9.9 mg/dL (8.4-10.2); GFR AFRICAN-AMERICAN > 60; GFR NON-AFRICAN AMERICAN > 60
[2017-12-17] MEDS: Insulin Regular 100 units/ml SC SCH ×4 (06:39→22:12)
--- NOTE | 2017-12-17 08:19 | CP.PCM.PN ---
Subjective - Date & Time of Evaluation Date of Evaluation: 12/17/17 Time of Evaluation: 08:30 - Subjective Subjective: Patient was seen and examined bedside. Intubated on MV PRVC/ AC mode, comatose with GCS 3 , no pupillary response , no gag reflex , no corneal reflex , breathing over the vent. On levophed drip for BP control BP 135/83 HR 91 MV PRVC AC mode 12/500/5/60 % with ABG 41/103/24/7.38 WBC 15 K Hgb 14 Plt 73 K Na 186 Still with large urinary output hourly Very poor prognosis Objective - Vital Signs/Intake and Output Vital Signs (last 24 hours): Temp Pulse Resp BP Pulse Ox 97.4 F L 93 H 20 117/67 93 L 12/17/17 00:00 12/16/17 23:00 12/16/17 23:00 12/16/17 23:00 12/16/17 23:00 Intake and Output: 12/17/17 12/17/17 06:59 18:59 Intake Total 2725 Output Total 6950 Balance -4225 - Medications Medications: Current Medications Acetaminophen (Tylenol 650mg/20.3ml Solution Ud) 650 mg PO Q6 PRN PRN Reason: Fever >100.4 F Last Admin: 12/15/17 18:30 Dose: 650 mg Desmopressin Acetate (Ddavp) 2 mcg IM Q12 [facility] Dexamethasone (Decadron Inj) 10 mg IV Q12@0000,1200 [facility] Last Admin: 12/17/17 01:15 Dose: 10 mg Vancomycin HCl 1 gm/ Sodium (Chloride) 250 mls @ 250 mls/hr IVPB Q12H [facility] PRN Reason: Protocol Last Admin: 12/17/17 02:00 Dose: 250 mls/hr Piperacillin Sod/Tazobactam (Sod 3.375 gm/ Sodium Chloride) 100 mls @ 100 mls/ hr IVPB Q6 [facility] PRN Reason: Protocol Last Admin: 12/17/17 05:46 Dose: 100 mls/hr Levetiracetam 500 mg/ Sodium (Chloride) 105 mls @ 210 mls/hr IVPB Q12@0400, 1600 [facility] Last Admin: 12/17/17 04:50 Dose: 210 mls/hr Norepinephrine Bitartrate 8 mg (/ Dextrose) 258 mls @ 9.67 mls/hr IV .Q24H ONE ; 5 MCG/MIN PRN Reason: Protocol Stop: 12/17/17 21:37 Last Admin: 12/17/17 04:30 Dose: 5 mcg/min, 9.67 mls/hr Dextrose (Dextrose 5% In Water 1000 Ml) 1,000 mls @ 1,000 mls/hr IV .Q1H [facility] Stop: 12/17/17 08:29 Dextrose (Dextrose 5% In Water 1000 Ml) 1,000 mls @ 175 mls/hr IV .Q5H43M [facility] Stop: 12/18/17 07:19 Insulin Human Regular (Humulin R) 0 units SC Q6H [facility] PRN Reason: Protocol Last Admin: 12/17/17 06:39 Dose: 3 units Labetalol HCl (Trandate) 20 mg IVP Q3 PRN PRN Reason: Systolic Blood Pressure Mannitol (Mannitol) 25 gm IV Q8 [facility] Last Admin: 12/16/17 10:59 Dose: Not Given Morphine Sulfate (Morphine) 2 mg IVP Q4H PRN PRN Reason: Pain, severe (8-10) Ondansetron HCl (Zofran Inj) 4 mg IVP Q6H PRN PRN Reason: Nausea/Vomiting Pantoprazole Sodium (Protonix Inj) 40 mg IVP DAILY [facility] Last Admin: 12/16/17 10:59 Dose: 40 mg - Labs Labs: 12/17/17 04:20 12/17/17 04:20 PT 19.6 Seconds (9.8-13.1) H 12/16/17 04:28 INR 1.7 (0.9-1.2) H 12/16/17 04:28 APTT 30.3 Seconds (25.6-37.1) 12/16/17 04:28 - Constitutional Appears: Other (intubated on MV with no response, no pupillary , gag or corneal reflex , breathes over the vent ) - Head Exam Head Exam: ATRAUMATIC, NORMOCEPHALIC - Eye Exam Additional comments: fixed midline and dilated - ENT Exam ENT Exam: Mucous Membranes Dry - Neck Exam Neck Exam: Normal Inspection - Respiratory Exam Respiratory Exam: Clear to Ausculation Bilateral. absent: Rhonchi, Wheezes, Respiratory Distress - Cardiovascular Exam Cardiovascular Exam: Tachycardia, REGULAR RHYTHM. absent: JVD - GI/Abdominal Exam GI & Abdominal Exam: Soft, Normal Bowel Sounds. absent: Distended, Guarding, Tenderness, Rebound - Rectal Exam Rectal Exam: Deferred - Extremities Exam Extremities Exam: Full ROM, Normal Capillary Refill, Normal Inspection. absent : Calf Tenderness, Pedal Edema - Psychiatric Exam Additional comments: comatose - Skin Skin Exam: Dry, Warm Assessment and Plan - Assessment and Plan (Free Text) Assessment: 52 yo male with a past medical history of chronic ETOH abuse ,back pain, brought to ER after being found unresponsive for unknown amount of time .The patient was last seen well at 1 PM on 12/14/2017. Found by girlfriend,on the ground unresponsive with vomitus all over himself . Intubated on route by EMS for airway protection due to persistent vomitus. CT scan of the brain and cervical spine was performed revealed a large right subdural hematoma with 2.2 cm shift to the left and mild hydrocephalus. Corpus callosal hemorrhage with interventricular extension. There is edema in the right anterior cerebral artery territory and lateral right temporal lobe. CXR showed evidence of pneumonia; likely aspiration. Patient admitted to ICU. At present he is comatose , intubated on MV PRVC mode ,with GCS 3 with very poor prognosis, on Levophed .Has developed DI with Na 186 today 1. Comatose secondary to large subdural hematoma with mass effect , herniation and SAH Intubated on MV PRVC / Ac mode with GCS [address] of the Brain showed Progressing herniation leftward and downward. Progressing bilateral acute infarcts. Progressing intercerebral edema and mass effect. Large right acute subdural hematoma -similar with large leftward midline shift similar to probably slightly slightly increased . Progressive increased intraventricular blood. Similar to slightly increased hydrocephalus. Interval increased subarachnoid blood Very poor prognosis Neurology and neurosurgery consulted Patient is not a surgical candidate as per neurosurgery due to coagulopathy and low Platelet count With no gag , corneal or pupillary reflex , breathes over the vent Na 186 today D/c manitol and give D5 W and DDAVP Continue Decadron and Keppra . iconDial [facility] has been notified EEG today showed no brain activity. Patient able to trigger some breaths over the vent . Will need to correct high Na levels before proceeding with clinical evaluation for brain . Possible brain flow study 2. Neurogenic Diabetic insipidus Na trending up to 186 today and with large output hourly Continue D5W . Will give DDAVP 3.Suspected Aspiration Pneumonia on Vanco and Zosyn IV CXR today showed no infiltrate Continue vent management 4.Chronic ETOH abuse with Coagulopathy, Thrombocytopenia and transaminitis transfused FFP, Platelets and Vitamin K 5. Electrolyte abnormalities/ hypokalemia, hypophosphatemia replaced with Kcl runs, Kphos 6. Acute Hypoxic Resp Failure (POA) Intubated for Airway Protection- on Vent able to trigger breaths over the vent 7. Troponin Elevation sec to Demand Ischemia 8. DVT prophylaxis SCD Patient has very poor prognosis
[2017-12-17] MEDS ORDERED: Desmopressin 4 mcg/ml Inj (10 ml) IM SCH (09:00)
--- NOTE | 2017-12-17 10:06 | CP.PCM.PN ---
Subjective - Date & Time of Evaluation Date of Evaluation: 12/17/17 Time of Evaluation: 10:04 - Subjective Subjective: Mr. Terrazas was seen and examined at the bedside in ICU. He remains on mechanical ventilation with GCS 3T. He does not have any pupillary reactio, dilated with 4 mm, negative corneal reflex, and no gag reflex. Repeat CT of the head yesterday 12/16/2017 showed progression of brain edema and herniation. Progression of brainstem hemorrhage. Stable acute right subdural hemorrhage. stable midline shift.There was no untoward events Objective - Vital Signs/Intake and Output Vital Signs (last 24 hours): Temp Pulse Resp BP Pulse Ox 98.2 F 91 H 18 124/71 95 12/17/17 09:00 12/17/17 10:00 12/17/17 10:00 12/17/17 10:00 12/17/17 10:00 Intake and Output: 12/17/17 12/17/17 06:59 18:59 Intake Total 2725 2283 Output Total 6950 1500 Balance -4225 783 - Medications Medications: Current Medications Acetaminophen (Tylenol 650mg/20.3ml Solution Ud) 650 mg PO Q6 PRN PRN Reason: Fever >100.4 F Last Admin: 12/15/17 18:30 Dose: 650 mg Desmopressin Acetate (Ddavp) 2 mcg IM Q12 [facility] Last Admin: 12/17/17 09:47 Dose: 2 mcg Dexamethasone (Decadron Inj) 10 mg IV Q12@0000,1200 [facility] Last Admin: 12/17/17 01:15 Dose: 10 mg Vancomycin HCl 1 gm/ Sodium (Chloride) 250 mls @ 250 mls/hr IVPB Q12H [facility] PRN Reason: Protocol Last Admin: 12/17/17 02:00 Dose: 250 mls/hr Piperacillin Sod/Tazobactam (Sod 3.375 gm/ Sodium Chloride) 100 mls @ 100 mls/ hr IVPB Q6 [facility] PRN Reason: Protocol Last Admin: 12/17/17 09:00 Dose: 100 mls/hr Levetiracetam 500 mg/ Sodium (Chloride) 105 mls @ 210 mls/hr IVPB Q12@0400, 1600 [facility] Last Admin: 12/17/17 04:50 Dose: 210 mls/hr Norepinephrine Bitartrate 8 mg (/ Dextrose) 258 mls @ 9.67 mls/hr IV .Q24H ONE ; 5 MCG/MIN PRN Reason: Protocol Stop: 12/17/17 21:37 Last Titration: 12/17/17 09:46 Dose: 2.5 mcg/min, 4.83 mls/hr Dextrose (Dextrose 5% In Water 1000 Ml) 1,000 mls @ 175 mls/hr IV .Q5H43M [facility] Stop: 12/18/17 07:19 Last Admin: 12/17/17 09:36 Dose: 175 mls/hr Insulin Human Regular (Humulin R) 0 units SC Q6H [facility] PRN Reason: Protocol Last Admin: 12/17/17 06:39 Dose: 3 units Labetalol HCl (Trandate) 20 mg IVP Q3 PRN PRN Reason: Systolic Blood Pressure Mannitol (Mannitol) 25 gm IV Q8 [facility] Last Admin: 12/16/17 10:59 Dose: Not Given Morphine Sulfate (Morphine) 2 mg IVP Q4H PRN PRN Reason: Pain, severe (8-10) Ondansetron HCl (Zofran Inj) 4 mg IVP Q6H PRN PRN Reason: Nausea/Vomiting Pantoprazole Sodium (Protonix Inj) 40 mg IVP DAILY [facility] Last Admin: 12/17/17 08:34 Dose: 40 mg - Labs Labs: 12/17/17 04:20 12/17/17 04:20 PT 19.6 Seconds (9.8-13.1) H 12/16/17 04:28 INR 1.7 (0.9-1.2) H 12/16/17 04:28 APTT 30.3 Seconds (25.6-37.1) 12/16/17 04:28 - Constitutional Appears: No Acute Distress - Head Exam Head Exam: NORMAL INSPECTION - Neurological Exam Neuro motor strength exam: Left Upper Extremity: 0, Right Upper Extremity: 0, Left Lower Extremity: 0, Right Lower Extremity: 0 Additional comments: GCS 3T Assessment and Plan (1) Intracranial hemorrhage Assessment & Plan: Case discussed with Dr. Rush continue all current medical regimen. Recommend brain flow study and EEG to evaluate any brain activity. Recommend hospice care. Status: Acute
--- NOTE | 2017-12-17 10:56 | RAD ---
PROCEDURE: CHEST RADIOGRAPH, 1 VIEW HISTORY: intubated COMPARISON: Chest radiograph dated 12/16/2017 FINDINGS: LUNGS: Left basilar infiltrate. Tiny right midlung calcified granuloma redemonstrated. PLEURA: No pneumothorax or pleural fluid seen. CARDIOVASCULAR: Normal. OSSEOUS STRUCTURES: No significant abnormalities. VISUALIZED UPPER ABDOMEN: Normal. OTHER FINDINGS: Endotracheal and enteric tubes, unchanged. IMPRESSION: Patchy left basilar infiltrate. No significant interval change.
[2017-12-17 11:59] LABS: ABG ALLEN TEST YES; ARTERIAL BLOOD GAS HCO3 19.6 mmol/L (21-28); ARTERIAL BLOOD GAS HEMOGLOBIN 11.2 g/dL (11.7-17.4); ARTERIAL BLOOD GAS O2 CAPACITY 15.7 mL/dL (16-24); ARTERIAL BLOOD GAS O2 CONTENT 15.7 ML/dL (15-23); ARTERIAL BLOOD GAS O2 SAT 100.3 % (95-98); ARTERIAL BLOOD GAS PCO2 30 mm/Hg (35-45); ARTERIAL BLOOD GAS PH 7.37 (7.35-7.45); ARTERIAL BLOOD GAS PO2 142 mm/Hg (80-100); ARTERIAL BLOOD GAS TCO2 18.2 mmol/L (22-28)
--- NOTE | 2017-12-17 11:59 | CP.CCUPN ---
CCU Subjective - Physician Review Subjective (Free Text): Remains comatose and unresponsive to painful stimulus, pupils 4 mm with no reactivity, midline position, absent corneals, absent gag, no carinal, but + vent triggering, breathing 20-22 on AC 12. EEG done today. Other vitals and I/O's reviewed: negative 2.7L over last 24H. ROS: No other pertinent negs or positives on 10+ system review, otherwise unobtainable. PMSFH: All other Nursing and physician documentation reviewed to date; no new pertinent info noted relevant to current medical problems. CXR: ETT position ok above kaylene, no new changes see in R hilar and RLL interstitial changes. ( my interp.) IMPRESSION / MAJOR PROBLEMS NOW: 1. Catastrophic R SDH with SAH component, with R hemispheric edema and leftward shift, + Left ventricular blood and repeat CT Brain showing no new bleeding but loss of 3rd and 4th ventricle (my interp of repeat CT Brain imaging). 2. Centrally- mediated DI 3. Accelerated Hypertension 2 SDH / SAH 4. Coagulopathy and Thrombocytopenia 2 Alcoholism PLAN: 1. Preliminary EEG results show absent electrical brain activity. 2. Except for vent triggering, no other brainstem activity seen. Will start brain determination by neurologic criteria with Apnea testing and may need confirmatory testing with Nuclear brain flow study. 3. Levophed requirements persist. 4. Notify [facility]. 5. Discussed clinical status with daughter this AM. CCU Objective - Vital Signs / Intake & Output Vital Signs (Last 4 hours): Vital Signs Temp Pulse Resp BP Pulse Ox 12/17/17 11:00 92 H 18 132/81 95 12/17/17 10:00 91 H 18 124/71 95 12/17/17 09:00 98.2 F 95 H 19 158/88 H 96 12/17/17 08:00 98.2 F 92 H 18 133/76 92 L Intake and Output (Last 8hrs): Intake & Output 12/16/17 12/17/17 12/17/17 22:59 06:59 14:59 Intake Total 3625 2283 Output Total 4400 2550 1500 Balance -775 -2550 783 Intake: IV 2525 1183 Intake, Piggyback 500 500 Tube Feeding 400 Free Water Flush 600 200 Output: Urine 4400 2550 1500 Urethral (Plaza) 4400 2550 1500 - Physical Exam Head: Positive for: Atraumatic, Normocephalic Pupils: Positive for: Non-Reactive (4 mm midline, no Dolls eyes, no corneals) Extroacular Muscles: Positive for: Other (fixed in mid-position). Negative for : Gaze Palsy Conjunctiva: Positive for: Normal. Negative for: Icteric Mouth: Positive for: Moist Mucous Membranes Neck: Positive for: Normal Range of Motion. Negative for: Meningeal Signs, JVD Respiratory/Chest: Positive for: Clear to Auscultation. Negative for: Accessory Muscle Use, Wheezes Cardiovascular: Positive for: Regular Rate and Rhythm, Tachycardic. Negative for: Murmurs, Rub Abdomen: Positive for: Normal Bowel Sounds. Negative for: Tenderness, Distention, Mass/Organomegaly Lower Extremity: Positive for: Normal Inspection, NORMAL PULSES. Negative for: Edema, CALF TENDERNESS, Cyanosis Neurological: Negative for: GCS=15 (GCS= 3T) Skin: Positive for: Warm, Dry. Negative for: Rashes - Medications Active Medications: Active Medications Generic Name Dose Route Start Last Admin Trade Name Freq PRN Reason Stop Dose Admin Acetaminophen 650 mg 12/15/17 16:00 12/15/17 18:30 Tylenol 650mg/20.3ml Solution Ud PO 650 mg Q6 PRN Administration Fever >100.4 F Desmopressin Acetate 2 mcg 12/17/17 09:00 12/17/17 09:47 Ddavp IM 2 mcg Q12 [facility] Administration Dexamethasone 10 mg 12/15/17 12:00 12/17/17 01:15 Decadron Inj IV 10 mg Q12@0000,1200 [facility] Administration Vancomycin HCl 1 gm/ Sodium 250 mls @ 250 mls/hr 12/15/17 14:45 12/17/17 02: 00 Chloride IVPB 250 mls/hr Q12H [facility]FIL[facility] Administration Protocol Piperacillin Sod/Tazobactam 100 mls @ 100 mls/hr 12/15/17 09:00 12/17/17 09: 00 Sod 3.375 gm/ Sodium Chloride IVPB 100 mls/hr Q6 [facility] Administration Protocol Levetiracetam 500 mg/ Sodium 105 mls @ 210 mls/hr 12/17/17 04:00 12/17/17 04: 50 Chloride IVPB 210 mls/hr Q12@0400,1600 [facility] Administration Norepinephrine Bitartrate 8 mg 258 mls @ 9.67 mls/hr 12/16/17 21:38 12/17/17 09:46 / Dextrose IV 12/17/17 21:37 2.5 mcg/min .Q24H ONE 4.83 mls/hr Protocol Titration 5 MCG/MIN Dextrose 1,000 mls @ 200 mls/hr 12/17/17 10:25 12/17/17 10:44 Dextrose 5% In Water 1000 Ml IV 12/18/17 07:19 200 mls/hr .Q5H [facility]FIL[facility] Administration Insulin Human Regular 0 units 12/16/17 21:45 12/17/17 06:39 Humulin R SC 3 units Q6H PANFILO Administration Protocol Labetalol HCl 20 mg 12/15/17 16:22 Trandate IVP Q3 PRN Systolic Blood Pressure Mannitol 25 gm 12/15/17 17:00 12/16/17 10:59 Mannitol IV Not Given Q8 [facility] Morphine Sulfate 2 mg 12/15/17 02:30 Morphine IVP Q4H PRN Pain, severe (8-10) Ondansetron HCl 4 mg 12/15/17 02:30 Zofran Inj IVP Q6H PRN Nausea/Vomiting Pantoprazole Sodium 40 mg 12/15/17 09:00 12/17/17 08:34 Protonix Inj IVP 40 mg DAILY PANFILO Administration - Patient Studies Lab Studies: Microbiology Studies 12/15/17 07:55 MRSA Culture (Admit) - Final Naris MRSA NOT DETECTED 12/15/17 01:11 Blood Culture - Preliminary Blood NO GROWTH AFTER 48 HOURS 12/15/17 20:48 Blood Culture - Preliminary Blood NO GROWTH AFTER 24 HOURS 12/15/17 20:40 Blood Culture - Preliminary Blood NO GROWTH AFTER 24 HOURS 12/15/17 01:18 Urine Culture - Final Urine No Growth (<1,000 CFU/ML) Lab Studies 12/17/17 12/17/17 12/17/17 Range/Units 06:07 05:23 04:20 WBC (4.8-10.8) K/uL RBC (4.40-5.90) Mil/uL Hgb (12.0-18.0) g/dL Hct (35.0-51.0) % MCV (80.0-94.0) fl MCH (27.0-31.0) pg MCHC (33.0-37.0) g/dL RDW (11.5-14.5) % Plt Count (130-400) K/uL pCO2 41 (35-45) mm/Hg pO2 103 H (80-100) mm/Hg HCO3 24.2 (21-28) mmol/L ABG pH 7.38 (7.35-7.45) ABG Total CO2 25.6 (22-28) mmol/L ABG O2 Saturation 99.5 H (95-98) % ABG O2 Content 20.1 (15-23) ML/dL ABG Base Excess -0.9 (-2.0-3.0) mmol/L ABG Hemoglobin 14.8 (11.7-17.4) g/dL ABG Carboxyhemoglobin 1.9 H (0.5-1.5) % POC ABG HHb (Measured) 0.5 (0.0-5.0) % ABG Methemoglobin 1.6 (0.0-3.0) % ABG O2 Capacity 20.2 (16-24) mL/dL Meño Test Yes A-a O2 Difference 274.0 mm/Hg Hgb O2 Saturation 96.1 (95.0-98.0) % Vent Mode A/c Mechanical Rate 12 FiO2 60.0 % Tidal Volume 500 PEEP 5 Sodium 186 H* (132-148) mmol/l Potassium 3.6 (3.6-5.0) MMOL/L Chloride 145 H (98-107) mmol/L Carbon Dioxide 28 (22-30) mmol/L Anion Gap 17 (10-20) BUN 13 (9-20) mg/dl Creatinine 0.9 (0.8-1.5) mg/dl Est GFR ( Amer) > 60 Est GFR (Non-Af Amer) > 60 POC Glucose (mg/dL) 252 H (65-110) mg/dL Random Glucose 312 H (75-110) mg/dL Hemoglobin A1c (4.2-6.5) % Calcium 9.9 (8.4-10.2) mg/dL Total Bilirubin 3.0 H (0.2-1.3) mg/dl AST 246 H (17-59) U/L ALT 135 H D (21-72) U/L Alkaline Phosphatase 99 (38-126) U/L Troponin I (0.00-0.120) ng/mL Total Protein 8.3 H (6.3-8.2) G/DL Albumin 3.8 (3.5-5.0) g/dL Globulin 4.5 H (2.2-3.9) gm/dL Albumin/Globulin Ratio 0.8 L (1.0-2.1) Hep Bs Antigen (NEGATIVE) Hepatitis C Antibody (NEGATIVE) 12/17/17 12/16/17 12/16/17 Range/Units 04:20 21:35 13:54 WBC 15.7 H D (4.8-10.8) K/uL RBC 4.18 L (4.40-5.90) Mil/uL Hgb 14.0 (12.0-18.0) g/dL Hct 43.5 (35.0-51.0) % MCV 103.9 H D (80.0-94.0) fl MCH 33.6 H (27.0-31.0) pg MCHC 32.3 L (33.0-37.0) g/dL RDW 16.0 H (11.5-14.5) % Plt Count 76 L (130-400) K/uL pCO2 (35-45) mm/Hg pO2 (80-100) mm/Hg HCO3 (21-28) mmol/L ABG pH (7.35-7.45) ABG Total CO2 (22-28) mmol/L ABG O2 Saturation (95-98) % ABG O2 Content (15-23) ML/dL ABG Base Excess (-2.0-3.0) mmol/L ABG Hemoglobin (11.7-17.4) g/dL ABG Carboxyhemoglobin (0.5-1.5) % POC ABG HHb (Measured) (0.0-5.0) % ABG Methemoglobin (0.0-3.0) % ABG O2 Capacity (16-24) mL/dL Meño Test A-a O2 Difference mm/Hg Hgb O2 Saturation (95.0-98.0) % Vent Mode Mechanical Rate FiO2 % Tidal Volume PEEP Sodium 165 H* (132-148) mmol/l Potassium 4.0 (3.6-5.0) MMOL/L Chloride 125 H (98-107) mmol/L Carbon Dioxide 27 (22-30) mmol/L Anion Gap 17 (10-20) BUN 9 (9-20) mg/dl Creatinine 0.8 (0.8-1.5) mg/dl Est GFR ( Amer) > 60 Est GFR (Non-Af Amer) > 60 POC Glucose (mg/dL) 270 H (65-110) mg/dL Random Glucose 296 H (75-110) mg/dL Hemoglobin A1c (4.2-6.5) % Calcium 8.9 (8.4-10.2) mg/dL Total Bilirubin 2.6 H (0.2-1.3) mg/dl AST 244 H D (17-59) U/L ALT 112 H D (21-72) U/L Alkaline Phosphatase 95 (38-126) U/L Troponin I (0.00-0.120) ng/mL Total Protein 7.6 (6.3-8.2) G/DL Albumin 3.5 (3.5-5.0) g/dL Globulin 4.1 H (2.2-3.9) gm/dL Albumin/Globulin Ratio 0.8 L (1.0-2.1) Hep Bs Antigen (NEGATIVE) Hepatitis C Antibody (NEGATIVE) 12/16/17 12/16/17 12/16/17 Range/Units 13:06 04:28 04:28 WBC (4.8-10.8) K/uL RBC (4.40-5.90) Mil/uL Hgb (12.0-18.0) g/dL Hct (35.0-51.0) % MCV (80.0-94.0) fl MCH (27.0-31.0) pg MCHC (33.0-37.0) g/dL RDW (11.5-14.5) % Plt Count (130-400) K/uL pCO2 (35-45) mm/Hg pO2 (80-100) mm/Hg HCO3 (21-28) mmol/L ABG pH (7.35-7.45) ABG Total CO2 (22-28) mmol/L ABG O2 Saturation (95-98) % ABG O2 Content (15-23) ML/dL ABG Base Excess (-2.0-3.0) mmol/L ABG Hemoglobin (11.7-17.4) g/dL ABG Carboxyhemoglobin (0.5-1.5) % POC ABG HHb (Measured) (0.0-5.0) % ABG Methemoglobin (0.0-3.0) % ABG O2 Capacity (16-24) mL/dL Meño Test A-a O2 Difference mm/Hg Hgb O2 Saturation (95.0-98.0) % Vent Mode Mechanical Rate FiO2 % Tidal Volume PEEP Sodium (132-148) mmol/l Potassium (3.6-5.0) MMOL/L Chloride (98-107) mmol/L Carbon Dioxide (22-30) mmol/L Anion Gap (10-20) BUN (9-20) mg/dl Creatinine (0.8-1.5) mg/dl Est GFR ( Amer) Est GFR (Non-Af Amer) POC Glucose (mg/dL) (65-110) mg/dL Random Glucose (75-110) mg/dL Hemoglobin A1c 6.2 (4.2-6.5) % Calcium (8.4-10.2) mg/dL Total Bilirubin (0.2-1.3) mg/dl AST (17-59) U/L ALT (21-72) U/L Alkaline Phosphatase (38-126) U/L Troponin I 0.1480 H* (0.00-0.120) ng/mL Total Protein (6.3-8.2) G/DL Albumin (3.5-5.0) g/dL Globulin (2.2-3.9) gm/dL Albumin/Globulin Ratio (1.0-2.1) Hep Bs Antigen Negative (NEGATIVE) Hepatitis C Antibody Negative (NEGATIVE) Laboratory Results - last 24 hr 12/16/17 12/16/17 12/16/17 04:28 04:28 13:06 WBC RBC Hgb Hct MCV MCH MCHC RDW Plt Count pCO2 pO2 HCO3 ABG pH ABG Total CO2 ABG O2 Saturation ABG O2 Content ABG Base Excess ABG Hemoglobin ABG Carboxyhemoglobin POC ABG HHb (Measured) ABG Methemoglobin ABG O2 Capacity Meño Test A-a O2 Difference Hgb O2 Saturation Vent Mode Mechanical Rate FiO2 Tidal Volume PEEP Sodium Potassium Chloride Carbon Dioxide Anion Gap BUN Creatinine Est GFR ( Amer) Est GFR (Non-Af Amer) POC Glucose (mg/dL) Random Glucose Hemoglobin A1c 6.2 Calcium Total Bilirubin AST ALT Alkaline Phosphatase Troponin I 0.1480 H* Total Protein Albumin Globulin Albumin/Globulin Ratio Hep Bs Antigen Negative Hepatitis C Antibody Negative 12/16/17 12/16/17 12/17/17 13:54 21:35 04:20 WBC 15.7 H D RBC 4.18 L Hgb 14.0 Hct 43.5 MCV 103.9 H D MCH 33.6 H MCHC 32.3 L RDW 16.0 H Plt Count 76 L pCO2 pO2 HCO3 ABG pH ABG Total CO2 ABG O2 Saturation ABG O2 Content ABG Base Excess ABG Hemoglobin ABG Carboxyhemoglobin POC ABG HHb (Measured) ABG Methemoglobin ABG O2 Capacity Meño Test A-a O2 Difference Hgb O2 Saturation Vent Mode Mechanical Rate FiO2 Tidal Volume PEEP Sodium 165 H* Potassium 4.0 Chloride 125 H Carbon Dioxide 27 Anion Gap 17 BUN 9 Creatinine 0.8 Est GFR ( Amer) > 60 Est GFR (Non-Af Amer) > 60 POC Glucose (mg/dL) 270 H Random Glucose 296 H Hemoglobin A1c Calcium 8.9 Total Bilirubin 2.6 H AST 244 H D ALT 112 H D Alkaline Phosphatase 95 Troponin I Total Protein 7.6 Albumin 3.5 Globulin 4.1 H Albumin/Globulin Ratio 0.8 L Hep Bs Antigen Hepatitis C Antibody 12/17/17 12/17/17 12/17/17 04:20 05:23 06:07 WBC RBC Hgb Hct MCV MCH MCHC RDW Plt Count pCO2 41 pO2 103 H HCO3 24.2 ABG pH 7.38 ABG Total CO2 25.6 ABG O2 Saturation 99.5 H ABG O2 Content 20.1 ABG Base Excess -0.9 ABG Hemoglobin 14.8 ABG Carboxyhemoglobin 1.9 H POC ABG HHb (Measured) 0.5 ABG Methemoglobin 1.6 ABG O2 Capacity 20.2 Meño Test Yes A-a O2 Difference 274.0 Hgb O2 Saturation 96.1 Vent Mode A/c Mechanical Rate 12 FiO2 60.0 Tidal Volume 500 PEEP 5 Sodium 186 H* Potassium 3.6 Chloride 145 H Carbon Dioxide 28 Anion Gap 17 BUN 13 Creatinine 0.9 Est GFR ( Amer) > 60 Est GFR (Non-Af Amer) > 60 POC Glucose (mg/dL) 252 H Random Glucose 312 H Hemoglobin A1c Calcium 9.9 Total Bilirubin 3.0 H AST 246 H ALT 135 H D Alkaline Phosphatase 99 Troponin I Total Protein 8.3 H Albumin 3.8 Globulin 4.5 H Albumin/Globulin Ratio 0.8 L Hep Bs Antigen Hepatitis C Antibody Fingerstick Blood Sugar Results: 252 Review of Systems - Review of Systems Systems not reviewed;Unavailable: Intubated Critical Care Progress Note - Ventilator Checklist Head of Bed 30 Degrees: Yes Daily Sedation Vacation: No Daily Assessment of Readiness to Wean: No Daily Spontaneous Breathing Trial: No PUD Prophalyxis: Yes DVT Prophylaxis: Yes Oral Care with Chlorhexidine Gluconate {CHG}: Yes - Vent Settings MODE:: ASSIST CONTROL TIDAL VOLUME:: 500 RESP RATE:: 12 FIO2:: 60 PEEP:: 5 - Extremities/Vascular Does the Patient have a Central Venous Catheter?: Yes Insertion Site: Femoral Vein Does the Patient need a Central Venous Catheter?: Yes Does the Patient have a Plaza Catheter?: Yes Does the Patient need a Plaza Catheter?: Yes Catheter Insertion Criteria: Need for accurate measurement of output in critically ill patient - Prophylaxis GI Prophylaxis GI: PPI - Prophylaxis DVT Prophylaxis DVT: SCDs - Nutrition Nutrition: Nutrition Category Date Time Status NPO Diet [DIET] Diets 12/15/17 Breakfast Active
[2017-12-17 12:14] LABS: ABG ALLEN TEST YES; ARTERIAL BLOOD GAS HCO3 22.8 mmol/L (21-28); ARTERIAL BLOOD GAS HEMOGLOBIN 13.2 g/dL (11.7-17.4); ARTERIAL BLOOD GAS O2 CAPACITY 18.8 mL/dL (16-24); ARTERIAL BLOOD GAS O2 SAT 100.8 % (95-98); ARTERIAL BLOOD GAS PCO2 66 mm/Hg (35-45); ARTERIAL BLOOD GAS PH 7.21 (7.35-7.45); ARTERIAL BLOOD GAS PO2 350 mm/Hg (80-100); ARTERIAL BLOOD GAS TCO2 28.4 mmol/L (22-28)
--- NOTE | 2017-12-17 12:29 | CP.CCUPN ---
CCU Subjective - Physician Review Subjective (Free Text): Apnea Test performed: ABG obtained at the end of test shows PCO2= 66 and no spontaneous respirations noted during after 9 minute observation period as 100% oxygen provided into ETT via nasal cannula tubing inserted into ETT. Vitals remained stable throughout the test, with BP 101/59, on Levophed, HR 106, 95% SPO2. First part of Brain determination by neurologic criteria completed by Dr. Rush Neurologist. Will perform 2nd part in 6 hours, so far no confirmatory testing required such as Nuclear Brain Flow study.
[2017-12-17 14:56] LABS: BLOOD UREA NITROGEN 16 mg/dl (9-20); CALCIUM 8.2 mg/dL (8.4-10.2); GFR AFRICAN-AMERICAN > 60; GFR NON-AFRICAN AMERICAN > 60
[2017-12-17] MEDS: Desmopressin 4 mcg/ml Inj (10 ml) IM SCH (18:00)
[2017-12-18] MEDS: Desmopressin 4 mcg/ml Inj (10 ml) IM SCH ×3 (01:00→17:21)
[2017-12-18] MEDS: levETIRAcetam 500 MG in Sodium Chloride 0.9% 100 ML IVPB SCH ×2 (04:58→17:24)
[2017-12-18] MEDS: Piperacillin/Tazobact 3.375 GM in Sodium Chloride 0.9% 100 ML IVPB SCH ×4 (04:59→21:01)
[2017-12-18 05:04] LABS: ABG ALLEN TEST YES; ARTERIAL BLOOD GAS HCO3 25.5 mmol/L (21-28); ARTERIAL BLOOD GAS PCO2 35 mm/Hg (35-45); ARTERIAL BLOOD GAS PH 7.45 (7.35-7.45); ARTERIAL BLOOD GAS PO2 98 mm/Hg (80-100); ARTERIAL BLOOD GAS TCO2 25.4 mmol/L (22-28)
[2017-12-18 05:53] LABS: HEMOGLOBIN 12.8 g/dL (12.0-18.0); MEAN CELL VOLUME 104.6 fl (80.0-94.0); MEAN CORPUSCULAR HEMOGLOBIN 33.7 pg (27.0-31.0); MEAN CORPUSCULAR HGB CONC 32.2 g/dL (33.0-37.0); RBC 3.79 Mil/uL (4.40-5.90); RED CELL DISTRIBUTION WIDTH 16.1 % (11.5-14.5); WHITE BLOOD COUNT 9.8 K/uL (4.8-10.8)
[2017-12-18] MEDS ORDERED: Insulin Regular 100 units/ml SC STA (06:12)
[2017-12-18 06:14] LABS: ALB/GLOB RATIO 0.8 (1.0-2.1); ALT/SGPT 116 U/L (21-72); AST/SGOT 132 U/L (17-59); BLOOD UREA NITROGEN 14 mg/dl (9-20); CALCIUM 8.7 mg/dL (8.4-10.2); GFR AFRICAN-AMERICAN > 60; GFR NON-AFRICAN AMERICAN > 60
[2017-12-18 06:39] LABS: INR 1.7 (0.9-1.2); PROTHROMBIN TIME 19.5 Seconds (9.8-13.1)
[2017-12-18] MEDS: Insulin Regular 100 units/ml SC SCH ×3 (06:56→17:23)
[2017-12-18] MEDS ORDERED: Potassium CL 10 MEQ/50 ML 50 ML IVPB SCH (08:00)
[2017-12-18] MEDS ORDERED: Insulin Detemir 100 Units/ml Inj SC SCH (09:00)
--- NOTE | 2017-12-18 11:17 | RAD ---
PROCEDURE: CHEST RADIOGRAPH, 1 VIEW HISTORY: intubated COMPARISON: In.None available. FINDINGS: In situ ETT, tip of which lies approximately 4.76 cm above kaylene. NGT is present tip of which has not been included on this film though distal aspect does lie well below EG junction. LUNGS: Low lung volumes with crowded bronchovascular markings and bibasilar atelectasis. Bibasilar atelectasis. PLEURA: No pneumothorax or pleural fluid seen. CARDIOVASCULAR: . Cardiomegaly. OSSEOUS STRUCTURES: No significant abnormalities. VISUALIZED UPPER ABDOMEN: Normal. OTHER FINDINGS: None. IMPRESSION: ETT and NGT as above Low lung volumes with crowded bronchovascular markings and bibasilar atelectasis. Bibasilar atelectasis.
--- NOTE | 2017-12-18 12:04 | CP.PCM.PN ---
Subjective - Date & Time of Evaluation Date of Evaluation: 12/18/17 Time of Evaluation: 10:30 - Subjective Subjective: Pt is unresponsive even to pain Pupils nonreactive to light Intubated on Vent Very poor prognosis- discussed with daughter Objective - Vital Signs/Intake and Output Vital Signs (last 24 hours): Temp Pulse Resp BP Pulse Ox 98.0 F 89 18 134/78 92 L 12/18/17 08:00 12/18/17 11:00 12/18/17 11:00 12/18/17 11:00 12/18/17 11:00 Intake and Output: 12/18/17 12/18/17 06:59 18:59 Intake Total 3450 950 Output Total 1400 600 Balance 2050 350 - Medications Medications: Current Medications Acetaminophen (Tylenol 650mg/20.3ml Solution Ud) 650 mg PO Q6 PRN PRN Reason: Fever >100.4 F Last Admin: 12/15/17 18:30 Dose: 650 mg Desmopressin Acetate (Ddavp) 2 mcg IM Q8 [facility] Last Admin: 12/18/17 09:02 Dose: 2 mcg Dexamethasone (Decadron Inj) 10 mg IV Q12@0000,1200 [facility] Last Admin: 12/18/17 00:54 Dose: 10 mg Vancomycin HCl 1 gm/ Sodium (Chloride) 250 mls @ 250 mls/hr IVPB Q12H [facility] PRN Reason: Protocol Last Admin: 12/18/17 04:57 Dose: 250 mls/hr Piperacillin Sod/Tazobactam (Sod 3.375 gm/ Sodium Chloride) 100 mls @ 100 mls/ hr IVPB Q6 [facility] PRN Reason: Protocol Last Admin: 12/18/17 09:03 Dose: 100 mls/hr Levetiracetam 500 mg/ Sodium (Chloride) 105 mls @ 210 mls/hr IVPB Q12@0400, 1600 PANFILO Last Admin: 12/18/17 04:58 Dose: 210 mls/hr Potassium Chloride 10 meq/ (Sodium Chloride) 55 mls @ 55 mls/hr IV Q1 [facility] Stop: 12/18/17 13:59 Last Admin: 12/18/17 11:46 Dose: 55 mls/hr Potassium Chloride/Dextrose (Potassium Chl 40 Meq In D5w) 1,000 mls @ 200 mls/ hr IV .Q5H [facility] Stop: 12/19/17 11:53 Insulin Detemir (Levemir) 10 units SC DAILY [facility] Last Admin: 12/18/17 08:57 Dose: 10 units Insulin Human Regular (Humulin R) 0 units SC Q6H PANFILO PRN Reason: Protocol Last Admin: 12/18/17 06:56 Dose: Not Given Labetalol HCl (Trandate) 20 mg IVP Q3 PRN PRN Reason: Systolic Blood Pressure Mannitol (Mannitol) 25 gm IV Q8 [facility] Last Admin: 12/16/17 10:59 Dose: Not Given Morphine Sulfate (Morphine) 2 mg IVP Q4H PRN PRN Reason: Pain, severe (8-10) Ondansetron HCl (Zofran Inj) 4 mg IVP Q6H PRN PRN Reason: Nausea/Vomiting Pantoprazole Sodium (Protonix Inj) 40 mg IVP DAILY [facility] Last Admin: 12/18/17 08:58 Dose: 40 mg - Labs Labs: 12/18/17 04:31 12/18/17 04:31 PT 19.5 Seconds (9.8-13.1) H 12/18/17 04:31 INR 1.7 (0.9-1.2) H 12/18/17 04:31 APTT 30.3 Seconds (25.6-37.1) 12/16/17 04:28 - Constitutional Appears: Other (Intubated on Vent) - Head Exam Head Exam: NORMOCEPHALIC - Eye Exam Additional comments: pupils 4-5 mm nonreactive - ENT Exam ENT Exam: Mucous Membranes Dry, Normal External Ear Exam - Neck Exam Additional comments: Intubated on Vent - Respiratory Exam Respiratory Exam: Rales, Rhonchi - Cardiovascular Exam Cardiovascular Exam: REGULAR RHYTHM, +S1, +S2 - GI/Abdominal Exam GI & Abdominal Exam: Normal Bowel Sounds - Extremities Exam Extremities Exam: absent: Pedal Edema - Neurological Exam Additional comments: Unresponsive even to pain pupils nonreactive to light - Skin Skin Exam: Dry, Normal Color, Warm Assessment and Plan - Assessment and Plan (Free Text) Assessment: 52 yo male with a past medical history of chronic ETOH abuse ,back pain, brought to ER after being found unresponsive for unknown amount of time .The patient was last seen well at 1 PM on 12/14/2017. Found by girlfriend,on the ground unresponsive with vomitus all over himself . Intubated enroute by EMS for airway protection due to persistent vomitus. CT scan of the brain and cervical spine was performed revealed a large right subdural hematoma with 2.2 cm shift to the left and mild hydrocephalus. Corpus callosal hemorrhage with interventricular extension. There is edema in the right anterior cerebral artery territory and lateral right temporal lobe. CXR showed evidence of pneumonia; likely aspiration. Patient admitted to ICU. At present he is comatose , intubated on MV PRVC mode ,with GCS 3 with very poor prognosis, on Levophed . Has developed Diabetes Insipidus . 1. Comatose secondary to large subdural hematoma with mass effect , herniation and SAH Intubated on MV PRVC / Ac mode with GCS [address] of the Brain: Progressing herniation leftward and downward. Progressing bilateral acute infarcts. Progressing intercerebral edema and mass effect. Large right acute subdural hematoma -similar with large leftward midline shift similar to probably slightly slightly increased . Progressive increased intraventricular blood. Similar to slightly increased hydrocephalus. Interval increased subarachnoid blood Very poor prognosis Neurology and neurosurgery consulted Patient is not a surgical candidate as per neurosurgery due to coagulopathy and low Platelet count No gag , corneal or pupillary reflex , however breathes over the vent . EEG : no brain activity off Mannitol Continue Decadron and Keppra . [facility] network has been notified Possible brain flow study 2. Neurogenic Diabetic insipidus Na trending up and with large output hourly cont DDAVP IVF D5W and freewater thru NGT 3.Suspected Aspiration Pneumonia on Vanco and Zosyn IV Continue vent management CXR : Left patchy infiltrate 4.Chronic ETOH abuse with Coagulopathy, Thrombocytopenia and transaminitis transfused FFP, Platelets and Vitamin K 5. Electrolyte abnormalities/ hypokalemia, hypophosphatemia replaced with Kcl runs, Kphos 6. Acute Hypoxic Resp Failure (POA) Intubated for Airway Protection- on Vent able to trigger breaths over the vent 7. Troponin Elevation sec to Demand Ischemia 8. DVT prophylaxis SCD Patient has very poor prognosis
[2017-12-18] MEDS: Potassium Chl 40mEq & D5W 1,000 ML IV SCH ×2 (13:31→21:01)
[2017-12-19] MEDS: Desmopressin 4 mcg/ml Inj (10 ml) IM SCH ×3 (01:02→16:17)
[2017-12-19] MEDS: Insulin Regular 100 units/ml SC SCH ×4 (01:02→17:16)
[2017-12-19] MEDS: Potassium Chl 40mEq & D5W 1,000 ML IV SCH ×4 (02:00→23:06)
[2017-12-19] MEDS: levETIRAcetam 500 MG in Sodium Chloride 0.9% 100 ML IVPB SCH ×2 (04:15→16:17)
[2017-12-19] MEDS: Piperacillin/Tazobact 3.375 GM in Sodium Chloride 0.9% 100 ML IVPB SCH ×4 (04:29→22:12)
[2017-12-19 05:26] LABS: ABG ALLEN TEST YES; ARTERIAL BLOOD GAS HCO3 26.4 mmol/L (21-28); ARTERIAL BLOOD GAS HEMOGLOBIN 13.2 g/dL (11.7-17.4); ARTERIAL BLOOD GAS O2 CONTENT 17.7 ML/dL (15-23); ARTERIAL BLOOD GAS O2 SAT 98.3 % (95-98); ARTERIAL BLOOD GAS PCO2 36 mm/Hg (35-45); ARTERIAL BLOOD GAS PH 7.46 (7.35-7.45); ARTERIAL BLOOD GAS PO2 80 mm/Hg (80-100); ARTERIAL BLOOD GAS TCO2 26.7 mmol/L (22-28)
[2017-12-19 07:04] LABS: HEMOGLOBIN 12.7 g/dL (12.0-18.0); MEAN CORPUSCULAR HEMOGLOBIN 33.4 pg (27.0-31.0); MEAN CORPUSCULAR HGB CONC 32.1 g/dL (33.0-37.0); RBC 3.82 Mil/uL (4.40-5.90); RED CELL DISTRIBUTION WIDTH 15.5 % (11.5-14.5); WHITE BLOOD COUNT 6.9 K/uL (4.8-10.8)
[2017-12-19 07:33] LABS: BLOOD UREA NITROGEN 15 mg/dl (9-20); CALCIUM 8.1 mg/dL (8.4-10.2); GFR AFRICAN-AMERICAN > 60; GFR NON-AFRICAN AMERICAN > 60
[2017-12-19 09:03] VITALS: O2SAT 100
--- NOTE | 2017-12-19 09:23 | CP.PCM.PN ---
Subjective - Date & Time of Evaluation Date of Evaluation: 12/19/17 Time of Evaluation: 09:20 - Subjective Subjective: Mr. Terrazas was seen and examined at the bedside in ICU. He remains unresponsive to all stimuli, on mechanical ventilator with PRVC mode. He does not have any pupillary, corneal, and gag reflex. GCS 3T. The preliminary report of EEG showed no brain activity. There was no untoward events overnight. Objective - Vital Signs/Intake and Output Vital Signs (last 24 hours): Temp Pulse Resp BP Pulse Ox 96.8 F L 79 20 114/66 100 12/19/17 08:00 12/19/17 08:00 12/19/17 08:00 12/19/17 08:00 12/19/17 08:00 Intake and Output: 12/19/17 12/19/17 06:59 18:59 Intake Total 3250 200 Output Total 1300 800 Balance 1950 -600 - Medications Medications: Current Medications Acetaminophen (Tylenol 650mg/20.3ml Solution Ud) 650 mg PO Q6 PRN PRN Reason: Fever >100.4 F Last Admin: 12/15/17 18:30 Dose: 650 mg Desmopressin Acetate (Ddavp) 2 mcg IM Q8 [facility] Last Admin: 12/19/17 09:07 Dose: 2 mcg Dexamethasone (Decadron Inj) 10 mg IV Q12@0000,1200 [facility] Last Admin: 12/19/17 01:02 Dose: 10 mg Vancomycin HCl 1 gm/ Sodium (Chloride) 250 mls @ 250 mls/hr IVPB Q12H [facility] PRN Reason: Protocol Last Admin: 12/19/17 04:28 Dose: 250 mls/hr Piperacillin Sod/Tazobactam (Sod 3.375 gm/ Sodium Chloride) 100 mls @ 100 mls/ hr IVPB Q6 [facility] PRN Reason: Protocol Last Admin: 12/19/17 09:05 Dose: 100 mls/hr Levetiracetam 500 mg/ Sodium (Chloride) 105 mls @ 210 mls/hr IVPB Q12@0400, 1600 [facility] Last Admin: 12/19/17 04:15 Dose: 210 mls/hr Potassium Chloride/Dextrose (Potassium Chl 40 Meq In D5w) 1,000 mls @ 200 mls/ hr IV .Q5H [facility] Stop: 12/19/17 11:53 Last Admin: 12/19/17 09:18 Dose: 200 mls/hr Insulin Detemir (Levemir) 14 units SC HS [facility] Insulin Human Regular (Humulin R) 0 units SC Q6H [facility] PRN Reason: Protocol Last Admin: 12/19/17 06:49 Dose: 6 units Labetalol HCl (Trandate) 20 mg IVP Q3 PRN PRN Reason: Systolic Blood Pressure Mannitol (Mannitol) 25 gm IV Q8 [facility] Last Admin: 12/16/17 10:59 Dose: Not Given Morphine Sulfate (Morphine) 2 mg IVP Q4H PRN PRN Reason: Pain, severe (8-10) Ondansetron HCl (Zofran Inj) 4 mg IVP Q6H PRN PRN Reason: Nausea/Vomiting Pantoprazole Sodium (Protonix Inj) 40 mg IVP DAILY [facility] Last Admin: 12/19/17 09:05 Dose: 40 mg - Labs Labs: 12/19/17 06:00 12/19/17 06:00 PT 19.5 Seconds (9.8-13.1) H 12/18/17 04:31 INR 1.7 (0.9-1.2) H 12/18/17 04:31 APTT 30.3 Seconds (25.6-37.1) 12/16/17 04:28 - Constitutional Appears: No Acute Distress - Head Exam Head Exam: NORMAL INSPECTION - Neurological Exam Neuro motor strength exam: Left Upper Extremity: 0, Right Upper Extremity: 0, Left Lower Extremity: 0, Right Lower Extremity: 0 Additional comments: [facility] 3T Assessment and Plan (1) Intracranial hemorrhage Assessment & Plan: Case discussed with Dr. Rush, continue medical management without mannitol drip. Follow up brain flow test. Recommend hospice management. Status: Acute
--- NOTE | 2017-12-19 10:22 | RAD ---
PROCEDURE: CHEST RADIOGRAPH, 1 VIEW HISTORY: intubated COMPARISON: 12/18/2017 FINDINGS: LUNGS: Probable subsegmental atelectasis at both bases. PLEURA: Small left pleural effusion. No right pleural effusion. No pneumothorax. CARDIOVASCULAR: ETT and NG tube grossly unchanged. OSSEOUS STRUCTURES: No significant abnormalities. VISUALIZED UPPER ABDOMEN: Normal. OTHER FINDINGS: None. IMPRESSION: Probable bibasilar subsegmental atelectasis and small left pleural effusion.
--- NOTE | 2017-12-19 12:31 | CP.PCM.PN ---
Subjective - Date & Time of Evaluation Date of Evaluation: 12/19/17 Time of Evaluation: 11:30 - Subjective Subjective: Pt remains intubated , on mech vent Unresponsive even to pain pupils nonreactive No fever + urine output Objective - Vital Signs/Intake and Output Vital Signs (last 24 hours): Temp Pulse Resp BP Pulse Ox 98.2 F 85 17 103/67 100 12/19/17 12:00 12/19/17 12:00 12/19/17 12:00 12/19/17 12:00 12/19/17 12:00 Intake and Output: 12/19/17 12/19/17 06:59 18:59 Intake Total 3250 1500 Output Total 1300 1000 Balance 1950 500 - Medications Medications: Current Medications Acetaminophen (Tylenol 650mg/20.3ml Solution Ud) 650 mg PO Q6 PRN PRN Reason: Fever >100.4 F Last Admin: 12/15/17 18:30 Dose: 650 mg Desmopressin Acetate (Ddavp) 2 mcg IM Q8 [facility] Last Admin: 12/19/17 09:07 Dose: 2 mcg Dexamethasone (Decadron Inj) 10 mg IV Q12@0000,1200 [facility] Last Admin: 12/19/17 12:11 Dose: 10 mg Vancomycin HCl 1 gm/ Sodium (Chloride) 250 mls @ 250 mls/hr IVPB Q12H [facility] PRN Reason: Protocol Last Admin: 12/19/17 04:28 Dose: 250 mls/hr Piperacillin Sod/Tazobactam (Sod 3.375 gm/ Sodium Chloride) 100 mls @ 100 mls/ hr IVPB Q6 [facility] PRN Reason: Protocol Last Admin: 12/19/17 09:05 Dose: 100 mls/hr Levetiracetam 500 mg/ Sodium (Chloride) 105 mls @ 210 mls/hr IVPB Q12@0400, 1600 [facility] Last Admin: 12/19/17 04:15 Dose: 210 mls/hr Insulin Detemir (Levemir) 14 units SC HS [facility] Insulin Human Regular (Humulin R) 0 units SC Q6H [facility] PRN Reason: Protocol Last Admin: 12/19/17 12:11 Dose: 4 units Labetalol HCl (Trandate) 20 mg IVP Q3 PRN PRN Reason: Systolic Blood Pressure Mannitol (Mannitol) 25 gm IV Q8 [facility] Last Admin: 12/16/17 10:59 Dose: Not Given Morphine Sulfate (Morphine) 2 mg IVP Q4H PRN PRN Reason: Pain, severe (8-10) Ondansetron HCl (Zofran Inj) 4 mg IVP Q6H PRN PRN Reason: Nausea/Vomiting Pantoprazole Sodium (Protonix Inj) 40 mg IVP DAILY [facility] Last Admin: 12/19/17 09:05 Dose: 40 mg - Labs Labs: 12/19/17 06:00 12/19/17 06:00 PT 19.5 Seconds (9.8-13.1) H 12/18/17 04:31 INR 1.7 (0.9-1.2) H 12/18/17 04:31 APTT 30.3 Seconds (25.6-37.1) 12/16/17 04:28 - Constitutional Appears: Other (Intubated on Vent) - Head Exam Head Exam: NORMOCEPHALIC - Eye Exam Additional comments: pupils 4-5 mm nonreactive - ENT Exam ENT Exam: Mucous Membranes Dry, Normal External Ear Exam - Neck Exam Additional comments: Intubated on Vent - Respiratory Exam Respiratory Exam: Rales, Rhonchi - Cardiovascular Exam Cardiovascular Exam: REGULAR RHYTHM, +S1, +S2 - GI/Abdominal Exam GI & Abdominal Exam: Normal Bowel Sounds - Extremities Exam Extremities Exam: absent: Pedal Edema - Neurological Exam Additional comments: Unresponsive even to pain pupils nonreactive to light - Skin Skin Exam: Dry, Normal Color, Warm Assessment and Plan - Assessment and Plan (Free Text) Assessment: 52 yo male with a past medical history of chronic ETOH abuse ,back pain, brought to ER after being found unresponsive for unknown amount of time .The patient was last seen well at 1 PM on 12/14/2017. Found by girlfriend,on the ground unresponsive with vomitus all over himself . Intubated enroute by EMS for airway protection due to persistent vomitus. CT scan of the brain and cervical spine was performed revealed a large right subdural hematoma with 2.2 cm shift to the left and mild hydrocephalus. Corpus callosal hemorrhage with interventricular extension. There is edema in the right anterior cerebral artery territory and lateral right temporal lobe. CXR showed evidence of pneumonia; likely aspiration. Patient admitted to ICU. At present he is comatose , intubated on MV PRVC mode ,with GCS 3 with very poor prognosis, on Levophed . Has developed Diabetes Insipidus . 1. Comatose secondary to large subdural hematoma with mass effect , herniation and SAH Intubated on MV PRVC / Ac mode with GCS [address] of the Brain: Progressing herniation leftward and downward. Progressing bilateral acute infarcts. Progressing intercerebral edema and mass effect. Large right acute subdural hematoma -similar with large leftward midline shift similar to probably slightly slightly increased . Progressive increased intraventricular blood. Similar to slightly increased hydrocephalus. Interval increased subarachnoid blood Very poor prognosis Neurology and neurosurgery consulted Patient is not a surgical candidate as per neurosurgery due to coagulopathy and low Platelet count No gag , corneal or pupillary reflex , however breathes over the vent . EEG : no brain activity off Mannitol Continue Decadron and Keppra . [facility] network has been notified Awaiting brain flow study 2. Neurogenic Diabetic insipidus Hypernatremia with large urine output hourly cont DDAVP IVF D5W and freewater thru NGT 3.Suspected Aspiration Pneumonia on Vanco and Zosyn IV Continue vent management CXR : Left patchy infiltrate 4.Chronic ETOH abuse with Coagulopathy, Thrombocytopenia and transaminitis transfused FFP, Platelets and Vitamin K 5. Electrolyte abnormalities/ hypokalemia, hypophosphatemia replaced with Kcl runs, Kphos 6. Acute Hypoxic Resp Failure (POA) Intubated for Airway Protection- on Vent able to trigger breaths over the vent 7. Troponin Elevation sec to Demand Ischemia 8. DVT prophylaxis SCD Patient has very poor prognosis
[2017-12-19] MEDS ORDERED: Insulin Detemir 100 Units/ml Inj SC SCH (22:00)
[2017-12-20] MEDS: Desmopressin 4 mcg/ml Inj (10 ml) IM SCH ×2 (00:19→09:49)
[2017-12-20] MEDS: Insulin Regular 100 units/ml SC SCH ×2 (00:35→06:27)
[2017-12-20] MEDS: levETIRAcetam 500 MG in Sodium Chloride 0.9% 100 ML IVPB SCH (04:11)
[2017-12-20] MEDS: Piperacillin/Tazobact 3.375 GM in Sodium Chloride 0.9% 100 ML IVPB SCH (04:12)
[2017-12-20] MEDS: Acetaminophen 650mg/20.3ml solution UD PO PRN (04:36)
[2017-12-20 04:58] LABS: ABG ALLEN TEST YES; ARTERIAL BLOOD GAS HCO3 26.6 mmol/L (21-28); ARTERIAL BLOOD GAS O2 CAPACITY 17.6 mL/dL (16-24); ARTERIAL BLOOD GAS O2 CONTENT 15.5 ML/dL (15-23); ARTERIAL BLOOD GAS O2 SAT 88.3 % (95-98); ARTERIAL BLOOD GAS PCO2 62 mm/Hg (35-45); ARTERIAL BLOOD GAS PO2 50 mm/Hg (80-100); ARTERIAL BLOOD GAS TCO2 32.4 mmol/L (22-28)
[2017-12-20 05:30] LABS: ALB/GLOB RATIO 0.7 (1.0-2.1); ALBUMIN 2.5 g/dL (3.5-5.0); ALT/SGPT 75 U/L (21-72); AST/SGOT 88 U/L (17-59); BLOOD UREA NITROGEN 19 mg/dl (9-20); CALCIUM 7.8 mg/dL (8.4-10.2); GFR AFRICAN-AMERICAN > 60; GFR NON-AFRICAN AMERICAN > 60
[2017-12-20 05:56] LABS: HEMOGLOBIN 12.9 g/dL (12.0-18.0); MEAN CELL VOLUME 102.7 fl (80.0-94.0); MEAN CORPUSCULAR HEMOGLOBIN 33.7 pg (27.0-31.0); MEAN CORPUSCULAR HGB CONC 32.8 g/dL (33.0-37.0); RBC 3.82 Mil/uL (4.40-5.90); RED CELL DISTRIBUTION WIDTH 15.1 % (11.5-14.5); WHITE BLOOD COUNT 4.2 K/uL (4.8-10.8)
[2017-12-20] MEDS: Potassium Chl 40mEq & D5W 1,000 ML IV SCH (07:37)
[2017-12-20 07:48] VITALS: PULSE 116; RESP 18; TEMP 98.9
[2017-12-20 08:24] VITALS: BP 117/66
--- NOTE | 2017-12-20 08:43 | PN ---
CRITICAL CARE PROGRESS NOTE DATE: 12/19/2017 LOCATION: The patient in ICU, bed 431. TIME SPENT: 35 minutes. SUBJECTIVE: The patient is seen and evaluated at the bedside. Past medical, surgical and social history reviewed. Events since admission noted. A 52-year-old male with alcohol dependence, chronic back pain admitted after being found unresponsive for unknown period of time. CAT scan of the brain and cervical spine revealed a large right subdural hematoma with 2.2 cm shift to the left and a mild hydrocephalus, corpus callosal hemorrhage with intraventricular extension. The patient was treated with mannitol and Decadron, remains comatose with no response to painful stimuli. PHYSICAL EXAMINATION: HEAD, EYES, EARS, NOSE AND THROAT: Pupils are reactive. Pupils 2-3 mm poorly reactive. Conjunctivae pale. Sclerae white. NECK: Supple. Trachea is central. CHEST: Bilateral scattered rhonchi. HEART: Rhythm regular. S1 and S2 normal. ABDOMEN: Bowel sounds present and soft. EXTREMITIES: Trace edema. NEUROLOGIC: Comatose with no corneal reflex. No conjunctival reflex. Minimal gag reflex. CURRENT MEDICATIONS: Tylenol 650 q.6 p.r.n., DDAVP 2 mcg IM q.8, Decadron 10 mg IV q.12 hours, Levemir 14 units subcu at bedtime, labetalol 20 mg IV q.3 p.r.n., Keppra 500 mg IV q.12 hours, Protonix 40 IV daily, Zosyn 3.375 g IV q.6 hours, potassium chloride with D5W at 200 mL/hour and vancomycin 1 g IV q.12. LABORATORY DATA: WBC 6.9, hemoglobin 12.7, hematocrit 39.7 and platelet count of 44. PT 19.5 and INR 1.7. ABG; pH 7.46, pCO2 of 36 and pO2 of 80. Saturation _. 94%_ on AC 12, 500, 90% and PEEP of 5. SMA-7; sodium 159, potassium 4, chloride 123, CO2 of 28, blood urea nitrogen 15, creatinine 0.7, random glucose of 342 and calcium 8.1. Urinalysis is negative. Toxicology; salicylates less than 1. Tylenol less than 10. Serology; hepatitis B surface antigen negative, hepatitis C antibody negative and HIV antibody rapid screen negative. Microbiology; blood culture no growth reported. Nasal smear MRSA negative. Urine culture no growth reported. IMPRESSION: 1. Neuro: Comatose secondary to large subdural hematoma with mass effect herniation and subarachnoid hemorrhage. Remains intubated for airway protection. [place] Coma Scale 3. Progressing herniation leftward and downward. Progressing bilateral acute infarct.. Hypernatremia secondary to suspected diabetes insipidus currently on D5W with a potassium at 200 mL/hour. Current sodium is 159, off mannitol. 2. Respiratory: Suspected aspiration pneumonia, on vancomycin and Zosyn, ventilatory support. 3. Hematology: Chronic EtOH abuse with coagulopathy, thrombocytopenia and transaminitis, status post transfusion of fresh frozen plasma, platelets and vitamin K. 4. Renal :Correct electrolyte imbalance.Hypernatremia improving on hypotonic fluidd, off manitol Deep venous thrombosis prophylaxis with sequential compression device, hold anticoagulation due to subdural hematoma. Prognosis remains guarded. Appreciate neurology followup and discussion. Anton Sellers MD MTDIvan
--- NOTE | 2017-12-20 09:01 | CP.PCM.PN ---
Subjective - Date & Time of Evaluation Date of Evaluation: 12/20/17 Time of Evaluation: 09:01 - Subjective Subjective: Mr. Terrazas was seen and examined at the bedside in ICU. He remains on mechanical ventilator on PTVC mode with no sedation and his respiration remains the same with the vent. settings, GCS 3T. He remains with no corneal, gag reflexes and non reactive pupillary response to light accommodation. He had febrile apisode yesterday medicated with tylenol. Objective - Vital Signs/Intake and Output Vital Signs (last 24 hours): Temp Pulse Resp BP Pulse Ox 98.9 F 116 H 18 117/66 100 12/20/17 07:47 12/20/17 07:47 12/20/17 07:47 12/20/17 08:24 12/20/17 07:47 Intake and Output: 12/20/17 12/20/17 06:59 18:59 Intake Total 3650 Output Total 1200 Balance 2450 - Medications Medications: Current Medications Acetaminophen (Tylenol 650mg/20.3ml Solution Ud) 650 mg PO Q6 PRN PRN Reason: Fever >100.4 F Last Admin: 12/20/17 04:36 Dose: 650 mg Desmopressin Acetate (Ddavp) 2 mcg IM Q8 [facility] Last Admin: 12/20/17 00:19 Dose: Not Given Dexamethasone (Decadron Inj) 10 mg IV Q12@0000,1200 [facility] Last Admin: 12/19/17 23:15 Dose: 10 mg Vancomycin HCl 1 gm/ Sodium (Chloride) 250 mls @ 250 mls/hr IVPB Q12H [facility] PRN Reason: Protocol Last Admin: 12/20/17 02:41 Dose: 250 mls/hr Piperacillin Sod/Tazobactam (Sod 3.375 gm/ Sodium Chloride) 100 mls @ 100 mls/ hr IVPB Q6 [facility] PRN Reason: Protocol Last Admin: 12/20/17 04:12 Dose: 100 mls/hr Levetiracetam 500 mg/ Sodium (Chloride) 105 mls @ 210 mls/hr IVPB Q12@0400, 1600 [facility] Last Admin: 12/20/17 04:11 Dose: 210 mls/hr Dextrose (Dextrose 5% In Water 1000 Ml) 1,000 mls @ 50 mls/hr IV .Q20H [facility] Stop: 12/21/17 08:03 Last Admin: 12/20/17 08:25 Dose: 50 mls/hr Insulin Detemir (Levemir) 14 units SC HS [facility] Last Admin: 12/19/17 22:15 Dose: 14 units Insulin Human Regular (Humulin R) 0 units SC Q6H [facility] PRN Reason: Protocol Last Admin: 12/20/17 06:27 Dose: 6 units Labetalol HCl (Trandate) 20 mg IVP Q3 PRN PRN Reason: Systolic Blood Pressure Morphine Sulfate (Morphine) 2 mg IVP Q4H PRN PRN Reason: Pain, severe (8-10) Ondansetron HCl (Zofran Inj) 4 mg IVP Q6H PRN PRN Reason: Nausea/Vomiting Pantoprazole Sodium (Protonix Inj) 40 mg IVP DAILY [facility] Last Admin: 12/19/17 09:05 Dose: 40 mg - Labs Labs: 12/20/17 04:20 12/20/17 04:20 PT 19.5 Seconds (9.8-13.1) H 12/18/17 04:31 INR 1.7 (0.9-1.2) H 12/18/17 04:31 APTT 30.3 Seconds (25.6-37.1) 12/16/17 04:28 - Constitutional Appears: No Acute Distress - Head Exam Head Exam: NORMAL INSPECTION - Eye Exam Pupil Exam: Fixed Additional comments: 5 mm - Neurological Exam Neuro motor strength exam: Left Upper Extremity: 0, Right Upper Extremity: 0, Left Lower Extremity: 0, Right Lower Extremity: 0 Additional comments: GCS 3T Assessment and Plan (1) Intracranial hemorrhage Assessment & Plan: Case discussed with Dr. Malone, continue all current medical regimen. Recommend conservative management. Status: Acute
--- NOTE | 2017-12-20 09:02 | EEG ---
ELECTROENCEPHALOGRAM REPORT DATE: 12/17/2017 TECHNICAL INFORMATION: A 16-EEG electrodes were placed using standard 10-20 International electrode system. All electrodes were referenced to A1/A2 or P1/P2. Continuous EEG monitoring was done using spike detection software. Background; there is no normal background noted. There is no drowsiness. There is no sleep. IMPRESSION: This patient is in electrocerebral silence, the only wave that are present are EKG artifact. Jian Rush MD
--- NOTE | 2017-12-20 09:06 | PN ---
CRITICAL CARE PROGRESS NOTE DATE: 12/18/2017 LOCATION: The patient in ICU, bed 431. TIME SPENT: 35 minutes. SUBJECTIVE: The patient is seen and evaluated at the bedside. Past medical, surgical and social history reviewed. A 57-year-old male with history of chronic EtOH abuse, chronic back pain, admitted through ER after being found unresponsive for an unknown period of time. The patient was intubated and admitted to ICU. CT of the brain and cervical spine performed reveal a large right subdural hematoma with 2.0 cm shift to the left and mild hydrocephalus corpus callosal hemorrhage with intraventricular extension, extensive edema in the right anterior cerebral artery territory and lateral right temporal lobe. The patient remains comatose with no response to painful stimuli. PHYSICAL EXAMINATION VITAL SIGNS: Temperature 97.9, heart rate 86, blood pressure 140/77, mean arterial pressure 99, respiratory rate 21 on AC/PRBC rate of 12, tidal volume 500, PEEP of 5, FIO2 of 60%, saturating 98. Observed rate 14, exhaled tidal volume 480,endtidal_ CO2 18. Intake and output; input of 3350 and output of 1300, positive balance 0. Weight 190 pounds. HEAD, EYES, EARS, NOSE AND THROAT: Atraumatic and normocephalic. Pupils 4-5 mm, nonreactive. Oral mucosa moist. NG tube in place. Feeding in progress. CHEST: Bilateral scattered rhonchi and bilateral rales. HEART: Rhythm regular. S1 and S2 normal. ABDOMEN: Bowel sounds present and soft. EXTREMITIES: No pedal edema. NEUROLOGIC: Comatose with no response to painful stimuli. CURRENT MEDICATIONS: Tylenol 650 q.6 p.r.n., desmopressin 2 mcg IM q.8 hours, Decadron 10 mg IV q.12 hours, Levemir 10 units subcu daily, Accu-Chek with regular insulin coverage, labetalol 20 mg IV q.3 p.r.n. for systolic pressure above 140, Keppra 500 mg IV q.12 hours, mannitol 25 g IV q.8 hours, morphine 2 mg IV q.4 p.r.n. for pain, Protonix 40 IV daily, Zosyn 3.375 g IV q.6, vancomycin 1 g IV q.12 and potassium chloride in D5W at 200 mL/hour. LABORATORY DATA: WBC 9.8, hemoglobin 12.8, hematocrit 39.7 and platelet count of 55. PT 19.5 and INR 1.7. ABG; pH of 7.21, pCO2 of 66, pO2 of 350. On AC 12, FIO2 60, tidal volume of 500. SMA-7; sodium 167, potassium 2.9, chloride 127, CO2 of 27, blood urea nitrogen 14, creatinine 0.8, glucose 287, calcium 8.7, total bilirubin 2.6, AST 132, ALT 116 and total protein 7. IMPRESSION 1. Neuro: Comatose secondary to large subdural hemorrhage, remains seizure free. Continue desmopressin, Decadron and Keppra. Mannitol on hold secondary to hypernatremia. 2. Pulmonary: Intubated on mechanical ventilation to protect airway, not weanable candidate today. 3. Cardiac: Blood pressure 145-154 within acceptable range. 4. Hematology: Thrombocytopenia related to chronic alcohol dependence. 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 5. Renal: Hypernatremia secondary to dehydration secondary to mannitol, currently on hold. Hypokalemia secondary to diuresis supplement. Continue hypertonic saline with 40 mEq of KCL. Follow the sodium and potassium level. 6. Gastrointestinal: Abnormal liver function test secondary to EtOH related liver disease. 7. Endocrine: Blood sugar is in the range of 287-315 secondary to Decadron. Continue Accu-Chek with regular insulin coverage. DVT and GI prophylaxis. Prognosis remains guarded. Anton Sellers MD MTDD
--- NOTE | 2017-12-20 09:23 | RAD ---
HISTORY: Intubated COMPARISON: Comparison chest 12/19/2017 at 0821 hours FINDINGS: In situ ETT, tip of which lies approximately 2.76 cm above kaylene. NGT is present, tip of which overlies left upper quadrant of the abdomen. LUNGS: Diffuse bilateral mid to lower lobe infiltrates. Increased pulmonary vascularity of may represent pulmonary edema/ CHF. Bilateral effusions. PLEURA: As above. No pneumothorax apparent. CARDIOVASCULAR: Heart size appears enlarged OSSEOUS STRUCTURES: No significant abnormalities. VISUALIZED UPPER ABDOMEN: Normal. OTHER FINDINGS: None. IMPRESSION: Diffuse bilateral mid to lower lobe infiltrates. Increased pulmonary vascularity of may represent pulmonary edema/ CHF. Bilateral effusions.
--- NOTE | 2017-12-20 11:29 | CP.PCM.DIS ---
Provider - Provider Date of Admission: 12/15/17 02:09 Attending physician: Reji Franklin DO Consults: Neurology : Dr Rush Neurosurgery: Dr Zaragoza Time Spent in preparation of Discharge (in minutes): 30 Diagnosis - Discharge Diagnosis (1) Intracranial hemorrhage Status: Acute (2) Subdural hematoma Status: Acute (3) Uncal herniation Status: Acute (4) Alcohol abuse Status: Chronic (5) Diabetes insipidus Status: Acute (6) Coagulopathy Status: Acute (7) Thrombocytopenia Status: Acute (8) Acute respiratory failure requiring reintubation Status: Acute (9) Aspiration pneumonia Status: Acute Hospital Course - Lab Results Lab Results: Micro Results 12/15/17 01:11 Blood Blood Culture - Final NO GROWTH AFTER 5 DAYS 12/15/17 01:11 Blood Gram Stain - Final TEST NOT PERFORMED 12/15/17 20:48 Blood Blood Culture - Preliminary NO GROWTH AFTER 4 DAYS 12/15/17 20:40 Blood Blood Culture - Preliminary NO GROWTH AFTER 4 DAYS 12/15/17 07:55 Naris MRSA Culture (Admit) - Final MRSA NOT DETECTED 12/15/17 01:18 Urine Urine Culture - Final No Growth (<1,000 CFU/ML) Most Recent Lab Values WBC 4.2 K/uL (4.8-10.8) L 12/20/17 04:20 RBC 3.82 Mil/uL (4.40-5.90) L 12/20/17 04:20 Hgb 12.9 g/dL (12.0-18.0) 12/20/17 04:20 Hct 39.2 % (35.0-51.0) 12/20/17 04:20 MCV 102.7 fl (80.0-94.0) H 12/20/17 04:20 MCH 33.7 pg (27.0-31.0) H 12/20/17 04:20 MCHC 32.8 g/dL (33.0-37.0) L 12/20/17 04:20 RDW 15.1 % (11.5-14.5) H 12/20/17 04:20 Plt Count 37 K/uL (130-400) L 12/20/17 04:20 MPV 9.0 fl (7.2-11.7) 12/16/17 04:28 Neut % (Auto) 87.4 % (50.0-75.0) H 12/16/17 04:28 Lymph % (Auto) 5.9 % (20.0-40.0) L 12/16/17 04:28 Baldwin % (Auto) 6.5 % (0.0-10.0) 12/16/17 04:28 Eos % (Auto) 0.1 % (0.0-4.0) 12/16/17 04:28 Baso % (Auto) 0.1 % (0.0-2.0) 12/16/17 04:28 Neut # (Auto) 8.2 K/uL (1.8-7.0) H 12/16/17 04:28 Lymph # (Auto) 0.6 K/uL (1.0-4.3) L 12/16/17 04:28 Baldwin # (Auto) 0.6 K/uL (0.0-0.8) 12/16/17 04:28 Eos # (Auto) 0.0 K/uL (0.0-0.7) 12/16/17 04:28 Baso # (Auto) 0.0 K/uL (0.0-0.2) 12/16/17 04:28 Total Counted Cancelled 12/15/17 09:20 Neutrophils % (Manual) 81 % (42-75) H 12/15/17 01:11 Band Neutrophils % 7 % (0-2) H 12/15/17 01:11 Lymphocytes % (Manual) 4 % (20-50) L 12/15/17 01:11 Reactive Lymphs % Cancelled 12/15/17 09:20 Monocytes % (Manual) 6 % (0-10) 12/15/17 01:11 Eosinophils % (Manual) 1 % (0-7) 12/15/17 01:11 Basophils % (Manual) Cancelled 12/15/17 09:20 Metamyelocytes % 1 % (0-0) H 12/15/17 01:11 Myelocytes % Cancelled 12/15/17 09:20 Promyelocytes % Cancelled 12/15/17 09:20 Blast Cells % Cancelled 12/15/17 09:20 Plasma Cell % (Manual) Cancelled 12/15/17 09:20 Nucleated RBC % Cancelled 12/15/17 09:20 Hypersegmented Polys Cancelled 12/15/17 09:20 Smudge Cells Cancelled 12/15/17 09:20 Toxic Granulation Cancelled 12/15/17 09:20 Dohle Bodies Cancelled 12/15/17 09:20 Armida Rods Cancelled 12/15/17 09:20 Platelet Estimate Decreased (NORMAL) L 12/15/17 01:11 Plt Clumps, EDTA Cancelled 12/15/17 09:20 Large Platelets Cancelled 12/15/17 09:20 Giant Platelets Cancelled 12/15/17 09:20 RBC Morphology Cancelled 12/15/17 09:20 Polychromasia Cancelled 12/15/17 09:20 Hypochromasia (manual) Cancelled 12/15/17 09:20 Poikilocytosis (manual Cancelled 12/15/17 09:20 Basophilic Stippling Cancelled 12/15/17 09:20 Anisocytosis (manual) Slight 12/15/17 01:11 Microcytosis (manual) Cancelled 12/15/17 09:20 Macrocytosis (manual) Slight 12/15/17 01:11 Spherocytes Cancelled 12/15/17 09:20 Sickle Cells Cancelled 12/15/17 09:20 Target Cells Cancelled 12/15/17 09:20 Tear Drop Cells Cancelled 12/15/17 09:20 Ovalocytes Cancelled 12/15/17 09:20 Stomatocytes Cancelled 12/15/17 09:20 Helmet Cells Cancelled 12/15/17 09:20 [place] Bodies Cancelled 12/15/17 09:20 Joni Cells Cancelled 12/15/17 09:20 Acanthocytes (Spur) Cancelled 12/15/17 09:20 Rouleaux Slight 12/15/17 01:11 Schistocytes Cancelled 12/15/17 09:20 PT 19.5 Seconds (9.8-13.1) H 12/18/17 04:31 INR 1.7 (0.9-1.2) H 12/18/17 04:31 APTT 30.3 Seconds (25.6-37.1) 12/16/17 04:28 pCO2 62 mm/Hg (35-45) H 12/20/17 04:53 pO2 50 mm/Hg (80-100) L 12/20/17 04:53 HCO3 26.6 mmol/L (21-28) 12/20/17 04:53 ABG pH 7.30 (7.35-7.45) L 12/20/17 04:53 ABG Total CO2 32.4 mmol/L (22-28) H 12/20/17 04:53 ABG O2 Saturation 88.3 % (95-98) L 12/20/17 04:53 ABG O2 Content 15.5 ML/dL (15-23) 12/20/17 04:53 ABG Base Excess 2.5 mmol/L (-2.0-3.0) 12/20/17 04:53 ABG Hemoglobin 13.0 g/dL (11.7-17.4) 12/20/17 04:53 ABG Carboxyhemoglobin 2.2 % (0.5-1.5) H 12/20/17 04:53 POC ABG HHb (Measured) 11.3 % (0.0-5.0) H 12/20/17 04:53 ABG Methemoglobin 1.4 % (0.0-3.0) 12/20/17 04:53 ABG O2 Capacity 17.6 mL/dL (16-24) 12/20/17 04:53 Meño Test Yes 12/20/17 04:53 ABG Potassium 3.4 mmol/L (3.6-5.2) L 12/16/17 07:37 A-a O2 Difference 443.0 mm/Hg 12/20/17 04:53 Hgb O2 Saturation 85.1 % (95.0-98.0) L 12/20/17 04:53 Sodium 162.0 mmol/L (132-148) H* 12/16/17 07:37 Chloride 129.0 mmol/L (98-107) H 12/16/17 07:37 Glucose 447 mg/dL (75-110) H* 12/16/17 07:37 Lactate 1.9 mmol/L (0.7-2.1) 12/16/17 07:37 Vent Mode A/c 12/20/17 04:53 Mechanical Rate 12 12/20/17 04:53 FiO2 80.0 % 12/20/17 04:53 Tidal Volume 500 12/20/17 04:53 PEEP 5 12/20/17 04:53 Blood Gas Comments Prvc/ac12/vt500/60%/+5peep 12/17/17 12:00 Crit Value Called To Dr. caroline dubon m.d. 12/17/17 12:00 Crit Value Called By Layne 12/17/17 12:00 Crit Value Read Back Y 12/17/17 12:00 Blood Gas Notified Time 1214 12/17/17 12:00 Sodium 153 mmol/l (132-148) H 12/20/17 04:20 Potassium 4.2 MMOL/L (3.6-5.0) 12/20/17 04:20 Chloride 117 mmol/L (98-107) H 12/20/17 04:20 Carbon Dioxide 30 mmol/L (22-30) 12/20/17 04:20 Anion Gap 10 (10-20) 12/20/17 04:20 BUN 19 mg/dl (9-20) 12/20/17 04:20 Creatinine 0.7 mg/dl (0.8-1.5) L 12/20/17 04:20 Est GFR ( Amer) > 60 12/20/17 04:20 Est GFR (Non-Af Amer) > 60 12/20/17 04:20 POC Glucose (mg/dL) 261 mg/dL (65-110) H 12/20/17 04:07 Random Glucose 274 mg/dL (75-110) H 12/20/17 04:20 Hemoglobin A1c 6.2 % (4.2-6.5) 12/16/17 04:28 Serum Osmolality 346 mosm/kg (272-300) H 12/19/17 15:20 Lactic Acid 1.9 MMOL/L (0.7-2.1) 12/16/17 04:28 Calcium 7.8 mg/dL (8.4-10.2) L 12/20/17 04:20 Phosphorus 0.6 mg/dl (2.5-4.5) L* 12/16/17 07:50 Magnesium 2.4 MG/DL (1.6-2.3) H 12/16/17 07:50 Total Bilirubin 2.0 mg/dl (0.2-1.3) H 12/20/17 04:20 AST 88 U/L (17-59) H D 12/20/17 04:20 ALT 75 U/L (21-72) H D 12/20/17 04:20 Alkaline Phosphatase 86 U/L (38-126) 12/20/17 04:20 Total Creatine Kinase 1374 U/L (55-170) H 12/15/17 09:20 Troponin I 0.1480 ng/mL (0.00-0.120) H* 12/16/17 13:06 Total Protein 6.2 G/DL (6.3-8.2) L 12/20/17 04:20 Albumin 2.5 g/dL (3.5-5.0) L 12/20/17 04:20 Globulin 3.7 gm/dL (2.2-3.9) 12/20/17 04:20 Albumin/Globulin Ratio 0.7 (1.0-2.1) L 12/20/17 04:20 Lipase 141 U/L (23-300) 12/15/17 01:11 Arterial Blood Potassium 3.4 mmol/L (3.6-5.2) L 12/16/17 07:37 Urine Color Yellow (YELLOW) 12/15/17 01:18 Urine Clarity Slighty-cloudy (Clear) 12/15/17 01:18 Urine pH 6.0 (5.0-8.0) 12/15/17 01:18 Ur Specific [place] 1.006 (1.003-1.030) 12/15/17 01:18 Urine Protein 30 mg/dL (NEGATIVE) 12/15/17 01:18 Urine Glucose (UA) Neg mg/dL (Normal) 12/15/17 01:18 Urine Ketones Trace mg/dL (NEGATIVE) 12/15/17 01:18 Urine Blood Moderate (NEGATIVE) 12/15/17 01:18 Urine Nitrate Negative (NEGATIVE) 12/15/17 01:18 Urine Bilirubin Negative (NEGATIVE) 12/15/17 01:18 Urine Urobilinogen 0.2-1.0 mg/dL (0.2-1.0) 12/15/17 01:18 Ur Leukocyte Esterase Neg Rudolph/uL (Negative) 12/15/17 01:18 Urine RBC (Auto) 2 /hpf (0-3) 12/15/17 01:18 Urine Microscopic WBC 2 /hpf (0-5) 12/15/17 01:18 Ur Squamous Epith Cells < 1 /hpf (0-5) 12/15/17 01:18 Hyaline Casts 0-2 /hpf (0-2) 12/15/17 01:18 Salicylates < 1.0 mg/dl 12/15/17 01:11 Urine Opiates Screen Negative (NEGATIVE) 12/15/17 01:18 Urine Methadone Screen Negative (NEGATIVE) 12/15/17 01:18 Acetaminophen < 10.0 ug/ml (10.0-30.0) L 12/15/17 01:11 Ur Barbiturates Screen Negative (NEGATIVE) 12/15/17 01:18 Ur Phencyclidine Scrn Negative (NEGATIVE) 12/15/17 01:18 Ur Amphetamines Screen Negative (NEGATIVE) 12/15/17 01:18 U Benzodiazepines Scrn Negative (NEGATIVE) 12/15/17 01:18 U Oth Cocaine Metabols Negative (NEGATIVE) 12/15/17 01:18 U Cannabinoids Screen Negative (NEGATIVE) 12/15/17 01:18 Alcohol, Quantitative < 10 mg/dl (0-10) 12/15/17 01:11 Hep Bs Antigen Negative (NEGATIVE) 12/16/17 04:28 Hepatitis C Antibody Negative (NEGATIVE) 12/16/17 04:28 HIV-1 Ab Rapid Screen Non reactive (NON REAC) 12/16/17 04:28 Blood Type O POSITIVE 12/15/17 01:11 Blood Type Confirm O POSITIVE 12/15/17 02:42 Antibody Screen Negative 12/15/17 01:11 BBK History Checked No verified bt 12/15/17 01:11 - Hospital Course Hospital Course: 52 yo male with a past medical history of chronic ETOH abuse ,back pain, brought to ER after being found unresponsive for unknown amount of time .The patient was last seen well at 1 PM on 12/14/2017. Found by girlfriend,on the ground unresponsive with vomitus all over himself . Intubated enroute by EMS for airway protection due to persistent vomitus. CT scan of the brain and cervical spine was performed revealed a large right subdural hematoma with 2.2 cm shift to the left and mild hydrocephalus. Corpus callosal hemorrhage with interventricular extension. There is edema in the right anterior cerebral artery territory and lateral right temporal lobe. CXR showed evidence of pneumonia; likely aspiration. Patient admitted to ICU with very poor prognosis, Maniitol, DEcadron and Keppra started. He was also started on Levophed . He developed Diabetes Insipidus . Neurology and Neuro surgery were consulted . Given pt's poor prognosis and comorbities, ( coagulopathy, thrombocytopenia,) he was not a candidate for Neurosurgery. Pt was nonresponsive with dilated pupils, no gag , no corneal reflex. EEG : no brain activity .Pt was clinically brain . Family requested terminal extubation. Patient on 12/20 at 10:36am 1. Comatose secondary to large subdural hematoma with mass effect , herniation and SAH Intubated on MV PRVC / Ac mode with GCS [address] of the Brain: Progressing herniation leftward and downward. Progressing bilateral acute infarcts. Progressing intercerebral edema and mass effect. Large right acute subdural hematoma -similar with large leftward midline shift similar to probably slightly slightly increased . Progressive increased intraventricular blood. Similar to slightly increased hydrocephalus. Interval increased subarachnoid blood Very poor prognosis Neurology and neurosurgery consulted Patient is not a surgical candidate as per neurosurgery due to coagulopathy and low Platelet count No gag , corneal or pupillary reflex , . EEG : no brain activity off Mannitol was on Mannitol, Decadron and Keppra . [facility] network has been notified 2. Neurogenic Diabetic insipidus Hypernatremia with large urine output hourly received DDAVP IVF D5W and freewater thru NGT 3. Aspiration Pneumonia on Vanco and Zosyn IV Continue vent management CXR : Left patchy infiltrate 4.Chronic ETOH abuse with Coagulopathy, Thrombocytopenia and transaminitis transfused FFP, Platelets and Vitamin K 5. Electrolyte abnormalities/ hypokalemia, hypophosphatemia replaced with Kcl runs, Kphos 6. Acute Hypoxic Resp Failure (POA) Intubated for Airway Protection- on Vent able to trigger breaths over the vent 7. Troponin Elevation sec to Demand Ischemia 8. DVT prophylaxis SCD Discharge Exam - Head Exam Additional comments: Pt Discharge Plan - Follow Up Plan Condition: Disposition: WITH WITHOUT AUTOPSY
--- NOTE | 2017-12-20 11:29 | CP.PCM.PRO ---
Pronouncement of Note - Clinical Findings Physical Exam: No Response Verbal/Painful Stimuli, Absent Peripheral Pulses{ Carotid & Femoral}, Absent Heart & Breath Sounds, No Pupillary Light Reflex, No Corneal Reflex, Pupils Fixed & Dilated, Absence of Vital Signs - Pronouncement Time Time of Pronouncement of : 10:36 - Notifications Pronouncement Notifications: Family Notified Boiler Assistant Operator Notified: Yes - Autopsy Autopsy Requested: No - [place] [id number] Additional Comments: Pt terminally extubated
--- NOTE | 2017-12-21 08:43 | PN ---
DATE: 12/20/2017 CRITICAL CARE PROGRESS NOTE LOCATION: The patient in ICU, bed 431. SUBJECTIVE: The patient is seen and evaluated at the bedside. Discussed with Neurology consult and with the patient's family, overnight normotensive, afebrile, telemetry sinus with intubated on mechanical ventilation on AC/PRBC rate of 18, tidal volume of 500, FiO2 of 100%, rate 18, exhaled tidal volume 500, minute ventilation 8.9 liters, peak airway pressure 28 and end-tidal CO2 of 23. No sedation. Remains unresponsive to verbal and painful stimuli. PHYSICAL EXAMINATION: VITAL SIGNS: Temperature 98.9, heart rate 116, blood pressure 117/66, FiO2 100%. HEAD, EYES, EARS, NOSE AND THROAT: Pupils are 2-3 mm, nonreactive. No corneal reflex. No conjunctival reflex. No gag reflex. CHEST: Bilateral breath sounds diminished in intensity, clear to auscultation anteriorly and laterally. HEART: Rhythm regular. S1 and S2 normal. ABDOMEN: Bowel sounds present. Soft. EXTREMITIES: Dependent edema. NEUROLOGIC: Flaccid extremity. No response to painful stimuli. MEDICATIONS: Include Tylenol 650 q. 6 hours p.r.n., DDAVP 2 mcg IM q. 8 hours, Decadron 10 mg IV q. 12 hours, D5W at 50 mL per hour, Levemir 14 units subcutaneous at night, labetalol 20 mg IV q. 3 hours p.r.n., Keppra 500 mg IV q. 12 hours, vancomycin 1 g IV q. 12 hours, Protonix 40 IV daily. LABORATORY DATA: WBC 4.2, hemoglobin 12.9, hematocrit 39.2 and platelet count of 37. PT 19.5 and INR 1.7. ABG; pH of 7.3, pCO2 of 62 and pO2 of 50. Saturation 98.3 on AC 12, FiO2 80, tidal volume of 500. SMA-7; sodium 152, potassium 4.2, chloride 117, CO2 of 30, blood urea nitrogen 19, creatinine 0.7, glucose of 274, AST 88, ALT 75, bilirubin 2. Total protein 6.2, albumin 2.5. Urinalysis is negative. IMPRESSION: Comatose. No brainstem reflexes noted, status post large subdural hematoma. As per the patient's family request, do not resuscitate and do not intubate was established. The patient terminally extubated, at 10:36 a.m. Family is informed. Anton Sellers MD
--- NOTE | 2017-12-21 14:02 | PQF GENQUE ---
Dr. Franklin pt was admitted with subdural hemorrhage with interventricular extension. After study if known was this hemorrhage traumatic or nontraumatic? UNKNOWN IF SUBDURAL HEMORRHAGE WAS TRAUMATIC OR NONTRAUMATIC EVEN AFTER IMAGING. This form is a permanent part of the medical record Clarification of your documentation is requested to better reflect the severity of illness and intensity of treatment of your patient. Indicators present [] Specify: [] [] Specify: [] [] Specify: [] [] Specify: [] Location in the medical record that reflects the above clinical findings: [] Treatment Provided: [] PHYSICIAN'S RESPONSE Based on your medical judgment of the clinical indicators outlined above please clarify the following: [] Practitioner response [] If unable to determine, please check the box, sign and date. Present On Admission (POA) Indicator: [] Present at the time of admission [] Not present at the time of admission [] Clinically Undetermined In responding to this query, please exercise your independent professional judgment. The fact that a question is asked does not imply that any particular answer is desired or expected. Thank you for your clarification on this documentation. If you have any questions please call:[ ] * Thank you, [ ]Mirian Higgins tafe teacher CHRIS
== END 2017-12-20 10:36 | DRG 533 ==
LOC: H.ER 00:54 → H.ERHOLD 02:09 → H.ICU/CCU 04:05
PROVIDERS: ADMIT Internal Medicine; ATTEND Internal Medicine
PROC: 5A1955Z Respiratory Ventilation, Greater than 96 Consecutive Hours (ICD-10-PCS; principal; 2017-12-15)
PROC: 04HK33Z Insertion of Infusion Device into Right Femoral Artery, Percutaneous Approach (ICD-10-PCS; 2017-12-15)
PROC: 06HM33Z Insertion of Infusion Device into Right Femoral Vein, Percutaneous Approach (ICD-10-PCS; 2017-12-15)
PROC: 30233K1 Transfusion of Nonautologous Frozen Plasma into Peripheral Vein, Percutaneous Approach (ICD-10-PCS; 2017-12-15)
DX: J69.0 Pneumonitis due to inhalation of food and vomit; G93.6 Cerebral edema; G93.5 Compression of brain; J96.01 Acute respiratory failure with hypoxia; E23.2 Diabetes insipidus; G91.9 Hydrocephalus, unspecified; K70.9 Alcoholic liver disease, unspecified; D69.59 Other secondary thrombocytopenia; E87.0 Hyperosmolality and hypernatremia; E87.6 Hypokalemia; D68.4 Acquired coagulation factor deficiency; E86.0 Dehydration; I61.3 Nontraumatic intracerebral hemorrhage in brain stem; R40.20 Unspecified coma; I61.5 Nontraumatic intracerebral hemorrhage, intraventricular; R73.9 Hyperglycemia, unspecified; X58.XXXA Exposure to other specified factors, initial encounter; Y93.9 Activity, unspecified; Y92.009 Unspecified place in unspecified non-institutional (private) residence as the place of occurrence of the external cause; R74.0 Nonspecific elevation of levels of transaminase and lactic acid dehydrogenase [LDH]; E83.39 Other disorders of phosphorus metabolism; R40.2430 Glasgow coma scale score 3-8, unspecified time; F10.20 Alcohol dependence, uncomplicated; Z66 Do not resuscitate; G89.29 Other chronic pain; I60.9 Nontraumatic subarachnoid hemorrhage, unspecified; I10 Essential (primary) hypertension